=== PATIENT | male | born 1940 | race Caucasian/White ===

== ENCOUNTER 2016-05-29 07:39 | Outpatient (CLI) ==
--- NOTE | 2016-05-29 08:15 | DI ---
EXAM: Five views of the lumbar spine. History: Lower back pain and sciatica Comparison: Lumbar spine CT 07/28/2015 Findings: Osteopenia. Atherosclerotic vascular calcifications. No acute fracture. Minimal retrol isthesis of L3 and L4 is most likely degenerative in nature. Severe disc space narrowing at L5, S1 with endplate sclerosis. Moderate disc space narrowing at L3-L4 with a few prominent anterior osteo phytes. Mild to moderate disc space narrowing seen elsewhere. Moderate to severe facet hypertrophy at L5-S1. Surgical clips seen within the abdomen. Impression: No acute osseous abnormality of the lumbar spine. Degenerative changes and most signif icant at L5-S1.
--- NOTE | 2016-05-29 13:54 | NM ---
EXAM: Whole-body bone scan. HISTORY: Renal cancer. Sciatica. Post left nephrectomy 11 years ago. COMPARISON: 10/01/2013. PROCEDURE: The patient was injected with 27.1 mCi of 99m technetium HDP intravenously. After an mamadou ropriate interval, whole-body anterior and posterior images were obtained. Additional spot images w ere obtained. FINDINGS: The thoracic and lumbar spine are stable in appearance when compared to the prior exam. T he ribcage is normal in appearance. The pelvic skeleton is normal in appearance. The patient is po st left nephrectomy. The right kidney and bladder appear normal. The lower extremeties demonstrate generally stable findings. There is evidence of a left total knee prosthesis. There is evidence o f degenerative changes in the right knee. There is less activity in the patella than was seen on th e prior examination. There is symmetric increased activity in the ankles and feet somewhat greater a long the lateral aspect of the right ankle and foot. The upper extremeties demonstrate age appropria te levels of activity in the major joints. There is relatively symmetric increased activity in the A C joints and shoulders. There is asymmetric increased activity in the right sternoclavicular joint compared to the left. There is modest activity in the sternal angle of Mickey. There is increased ac tivity in the wrists particularly in the first metacarpal carpal articulations compatible with arthr itis. There is a focus of increased activity in the upper cervical spine on the left. This may be evidence of degenerative change or less likely metastatic disease. The calvarium and face demonstra te a normal distribution of activity. IMPRESSION: 1. The bone scan demonstrates generally stable findings in the thoracic and lumbar spine, rib cage a nd pelvis. 2. There are generally stable degenerative changes in the joints in the upper lower extremities. The se are listed in the report. 3. No new lesion is identified in the skeleton having the appearance of metastatic disease. 4. Additional findings are listed in the report.
== END 2016-05-29 07:40 | disposition home or self-care (01) ==
LOC: RAD 07:39
PROVIDERS: ATTEND Family Medicine
DX: M54.5 Low back pain (principal); M89.29 Other disorders of bone development and growth, multiple sites; Z85.528 Personal history of other malignant neoplasm of kidney

== ENCOUNTER 2016-11-02 10:42 | Emergency (ER) ==
--- NOTE | 2016-11-02 10:47 | ED.PDOC ---
General ED Provider: Dr. KENY SWANSON JR Stated Complaint: patient called a friend around 0900 and stated his mouth was dry and was having trouble getting words out. patient states he knows what he wants to say but it won't come out. patient denies any pain anywhere. patient is clammy.[ End ]99.4 101 16 93% 139/78 states began about 4 or 5 in the morning. right kidney removed from cancer. bladder cancer. [ End ] Time Seen by Physician: 11:08 Mode of Arrival: Walk-In Information Source: Patient, Other Exam Limitations: No limitations Primary Care Provider: GABBY ORR Nursing and Triage Documentation Reviewed and Agree: No Review of Systems - Review Of Systems Constitutional: Reports: Weakness Eyes: Reports: No symptoms Ears, Nose, Mouth, Throat: Reports: No symptoms (throat dry) Respiratory: Reports: No symptoms Cardiac: Reports: No symptoms GI: Reports: No symptoms : Reports: No symptoms Musculoskeletal: Reports: No symptoms Skin: Reports: No symptoms Neurological: Reports: Other Endocrine: Reports: No symptoms Hematologic/Lymphatic: Reports: No symptoms All Other Systems: Other Past Medical History - Past Medical History Endocrine: Reports: Dyslipidemia, Other (gout) Cardiovascular: Reports: Hypertension Respiratory: Reports: None Hematological: Reports: None Gastrointestinal: Reports: GERD Genitourinary: Reports: Other (prostate) Neuro/Psych: Reports: None Musculoskeletal: Reports: None Cancer: Reports: Other (bladder) - Surgical History General Surgical History: Reports: Other (right kidney removed from cancer) - Family History Family History: Reports: Unknown - Social History Hx Substance Use: No Physical Exam - Physical Exam Appearance: Well-appearing, Obese Eyes: OMAYRA, EOMI, Conjunctiva clear ENT: Ears normal, Nose normal, Oropharynx normal Neck: Supple Respiratory: Airway patent, Breath sounds clear, Breath sounds equal, Respirations nonlabored Cardiovascular: RRR, Pulses normal, No rub, No murmur GI/: Soft, Nontender, No masses, Bowel sounds normal, No Organomegaly Musculoskeletal: Normal strength, ROM intact, No edema, No calf tenderness Skin: Warm, Dry, Normal color Neurological: Sensation intact, Motor intact, Alert, Oriented (x2), Disoriented (to date) Psychiatric: Affect appropriate, Mood appropriate Critical Care Note - Critical Care Note Total Time (mins): 20 Course - Course Hematology/Chemistry: 11/02/16 11:15 11/02/16 11:15 Orders, Labs, Meds: Lab Review 11/02/16 11:15 WBC 9.21 RBC 4.22 L Hgb 13.3 L Hct 38.1 L MCV 90.3 MCH 31.5 H MCHC 34.9 RDW Coeff of Ysabel 13.3 Plt Count 143 Immature Gran % (Auto) 0.3 Neut % (Auto) 71.1 Lymph % (Auto) 17.8 Amelia % (Auto) 8.3 Eos % (Auto) 2.0 Baso % (Auto) 0.5 Immature Gran # (Auto) 0.0 Neut # 6.6 Lymph # 1.6 Amelia # 0.8 Eos # 0.2 Baso # 0.1 Sodium 140 Potassium 3.6 Chloride 104 Carbon Dioxide 24 Anion Gap 15.6 BUN 26 H Creatinine 1.57 H Estimated GFR (MDRD) 43.00 BUN/Creatinine Ratio 16.56 Glucose 155 H Calcium 10.0 Total Bilirubin 0.58 AST 22 ALT 30 Alkaline Phosphatase 103 Total Protein 6.8 Albumin 3.8 Globulin 3.0 Albumin/Globulin Ratio 1.27 Orders Category Date Time Status EKG-(ED ONLY) Stat CARDIO 11/02/16 11:01 Completed ED HUMAN RESOURCES OPERATIONS COORDINATOR APPLIED .ONCE EMERGENCY 11/02/16 11:01 Active IV [ED IV/MEDIPORT/POWERPORT] .ONCE EMERGENCY 11/02/16 10:55 Active CBC W/ AUTO DIFF Stat LAB 11/02/16 11:15 Completed COMPREHENSIVE METABOLIC PANEL Stat LAB 11/02/16 11:15 Completed 0.9 % Sodium Chloride [Saline Flush] MEDS 11/02/16 10:55 Active 1 syr IVF PRN PRN CHEST, 1V AP ONLY Stat RADS 11/02/16 11:[address] HEAD W/O CONTRAST Stat RADS 11/02/16 10:47 Completed Medications Generic Name Dose Route Start Last Admin Trade Name Freq PRN Reason Stop Dose Admin Sodium Chloride 1 syr 11/02/16 10:55 Saline Flush IVF PRN PRN To flush IV Vital Signs: Temp Pulse Resp BP Pulse Ox 11/02/16 10:44 99.4 F 101 H 16 139/78 93 L Departure - Departure Time of Disposition: 13:33 Disposition: TSF SHORT-TRM HOSP Discharge Problem: Cerebrovascular accident (CVA) Qualifiers: CVA mechanism: unspecified Qualifier Code: (I63.9) Cerebral infarction, unspecified Condition: Good Pt referred to PMD for follow-up: Yes Allergies/Adverse Reactions: Allergies No Known Allergies Allergy (Unverified 08/28/14 09:42) Home Medications: Ambulatory Orders Atorvastatin Calcium [Lipitor] 1 PO DAILY 09/01/14 Bumetanide 1 PO DAILY 09/01/14 Esomeprazole Magnesium [Nexium] 1 PO DAILY 09/01/14 Febuxostat [Uloric] 1 PO DAILY 09/01/14 Fluticasone Propionate [Flonase] 1 IH DAILY PRN 09/01/14 Hydrochlorothiazide 1 PO DAILY 09/01/14 Solifenacin Succinate [Vesicare] 1 PO DAILY 09/01/14 Tamsulosin HCl [Flomax] 1 PO DAILY 09/01/14
[2016-11-02 10:50] VITALS: TEMP 99.4; BMI 43.0
[2016-11-02 11:28] LABS: BASOPHILS # (AUTO) 0.1 K/uL (0-0.2); BASOPHILS % (AUTO) 0.5 % (0.0-3.0); EOSINOPHILS # (AUTO) 0.2 K/ul (0.0-0.7); HEMATOCRIT 38.1 % (42.0-52.0); HEMOGLOBIN 13.3 g/dl (14.0-18.0); IMMATURE GRANULOCYTE % (AUTO) 0.3 % (0.0-5.0); LYMPHOCYTES # (AUTO) 1.6 K/uL (0.60-3.4); LYMPHOCYTES % (AUTO) 17.8 (10.0-50.0); MEAN CORPUSCULAR HEMOGLOBIN 31.5 pg (27.0-31.0); MEAN CORPUSCULAR HGB CONC 34.9 (31.8-35.4); MEAN CORPUSCULAR VOLUME 90.3 fl (80.0-94.0); MONOCYTES # (AUTO) 0.8 K/uL (0.4-2.0); MONOCYTES % (AUTO) 8.3 (0-10); NEUTROPHILS # (AUTO) 6.6 K/ul (2.0-6.9); NEUTROPHILS % (AUTO) 71.1; PLATELET COUNT 143 10^3/uL (140-440); RED BLOOD COUNT 4.22 10^6/ul (4.70-6.10); WHITE BLOOD COUNT 9.21 K/ul (4.2-10.2)
[2016-11-02 11:51] LABS: ALBUMIN 3.8 g/dL (3.4-5.0); ALBUMIN/GLOBULIN RATIO 1.27; ANION GAP 15.6; BILIRUBIN,TOTAL 0.58 mg/dL (0.00-1.20); BUN/CREATININE RATIO 16.56; CREATININE 1.57 mg/dL (0.60-1.10); POTASSIUM 3.6 mmol/L (3.5-5.1); TOTAL PROTEIN 6.8 g/dL (5.8-8.1)
--- NOTE | 2016-11-02 11:59 | DI ---
EXAM: Chest one view, frontal view only. HISTORY: Chest pain. COMPARISON: None available. FINDINGS: The heart size is normal. There is no pulmonary vascular congestion. The lungs are maisha r. No pleural effusion or pneumothorax is seen. No acute osseous abnormality is identified. Clips project over the neck. Rounded radiopaque object projecting over the superior mediastinum is of un certain significance. IMPRESSION: No acute cardiopulmonary process.
--- NOTE | 2016-11-02 12:16 | CT ---
EXAM: CT head without contrast. HISTORY: Stroke-like symptoms. Aphasia. COMPARISON: 08/19/2015. TECHNIQUE: Multiple axial images of the brain were obtained from the skull base through the vertex without intravenous contrast. FINDINGS: There is no intracranial hemorrhage or extraaxial collection. The reyez-white differentia tion is maintained without evidence for acute large vascular territory infarction. There are areas of periventricular and subcortical white matter low attenuation. The cortical sulci and cerebral ve ntricles are symmetrically enlarged. The basal cisterns are well visualized. There is no hydroceph alus, mass effect, or midline shift. The paranasal sinuses and mastoid air cells are clear. The ca lvarium is intact. Since the prior study, there has been no significant interval change. IMPRESSION: 1. No acute intracranial abnormality. 2. Chronic small vessel ischemic changes and atrophy.
[2016-11-02 16:37] VITALS: BP 120/88
== END 2016-11-02 16:45 | disposition short-term general hospital (02) ==
LOC: ED 10:42
DX: I63.9 Cerebral infarction, unspecified (principal); E78.5 Hyperlipidemia, unspecified; I10 Essential (primary) hypertension; Z79.899 Other long term (current) drug therapy
CPT/HCPCS: 36415; 80053; 85025; 93005; 93010; 99283

== ENCOUNTER 2017-03-20 06:56 | Day surgery (SDC) ==
[2017-03-20] MEDS ORDERED: LIDOCAINE 1% 20 ML MDV ID STA (07:37)
[2017-03-20] MEDS ORDERED: VERSED ONE (08:38)
[2017-03-20] MEDS ORDERED: DIPRIVAN 20 ML VIAL IVP ONE (08:38)
[2017-03-20 10:40] VITALS: TEMP 97.6
[2017-03-20 13:18] VITALS: BP 150/78
--- NOTE | 2017-03-21 08:47 | OP ---
INDICATIONS FOR PROCEDURE: 76 year old gentleman with a history of multiple adenomatous polyps presents for colonoscopy examination. MEDICATIONS: SEE ANESTHESIA NOTES. PROCEDURE: COLONOSCOPY TO THE SIGMOID THEN ABORTING. REPORT: The risks, benefits, alternatives and limitations were discussed in detail with the patient. Informed consent was obtained. After adequate sedation was achieved, a digital rectal exam revealed good tone, no masses. The colonoscope was introduced into the rectum unfortunately there was liquid and semi-solid stool present. I advanced the scope under direct visual guidance I was able to reach the sigmoid but I encountered more stool that was obscuring adequate visualization. The patient did tell me prior to procedure that he only drank part of the prep. It was apparent the prep was not adequate at this point. We therefore decided to abort the procedure due to the inadequate prep. The scope was withdrawn. I did see multiple diverticuli scattered throughout the sigmoid no other abnormalities were noted in this limited view. The patient tolerated the procedure well with stable vital signs and pulse oximetry throughout. IMPRESSION: 1. Limited colonoscopy secondary to poor prep. The scope was advanced to the sigmoid then the procedure aborted. 2. Diverticulosis RECOMMENDATIONS: 1. Reschedule colonoscopy with additional prep. We will plan for this tomorrow if the patient is willing. CC: Dr. Deion SUN
== END 2017-03-20 09:48 | disposition home or self-care (01) ==
LOC: SURG 06:56
PROVIDERS: ATTEND Internal Medicine Gastroenterology
DX: Z53.8 Procedure and treatment not carried out for other reasons (principal); Z86.010 Personal history of colon polyps; K57.30 Diverticulosis of large intestine without perforation or abscess without bleeding

== ENCOUNTER 2017-06-16 00:14 | Emergency (ER) ==
[2017-06-16 01:08] VITALS: BMI 41.4
--- NOTE | 2017-06-16 01:26 | CT ---
EXAM: CT scan brain without contrast HISTORY: Fall COMPARISON: CT scan brain 11/02/2016 FINDINGS: Contiguous axial images obtained from the skull base to the convexities without contrast u tilizing 5-mm collimation. Sagittal and coronal reconstructions were imaged and reviewed. The ventr icles and CSF spaces are prominent compatible with age appropriate atrophy. There is moderate perive ntricular hypodensity noted compatible with chronic microvascular disease.. Visualized paranasal sin uses mastoid air cells are clear. Atherosclerotic changes are seen involving internal carotids at th e level cavernous sinus. The calvarium is intact. IMPRESSION: No acute intracranial finding
--- NOTE | 2017-06-16 01:31 | CT ---
EXAM: CT scan cervical spine HISTORY: Fall COMPARISON: None. FINDINGS: Contiguous axial images obtained through the cervical spine utilizing 2-mm collimation. S agittal and coronal reconstructions were imaged and reviewed.. The vertebral bodies are normal in he ight and alignment. Degenerate disc disease is noted at C4-C5 through C6-C7. There is multilevel ce ntral canal and foraminal stenosis. IMPRESSION: No acute findings.
--- NOTE | 2017-06-16 01:32 | DI ---
EXAM: The left knee four views HISTORY: Trauma COMPARISON: None. FINDINGS: There is an intact appearing total knee prosthesis. There is no acute fracture or joint e ffusion. IMPRESSION: Satisfactory appearing total knee prosthesis without acute findings
--- NOTE | 2017-06-16 01:35 | CT ---
EXAM: CT of the pelvis without contrast. HISTORY: Fall. PROCEDURE: Contiguous axial CT images of the pelvis without contrast with coronal and sagittal refor mats. FINDINGS: The bones are intact with no evidence of fracture. The joint spaces are maintained. The bl adder is adequately filled with no abnormality identified. The seminal vesicles and prostate gland a re unremarkable. There is diverticulosis of the colon. No free fluid or free air in the pelvis. Impression: No evidence of fracture. Diverticulosis of the colon.
[2017-06-16] MEDS ORDERED: ZOFRAN ODT PO STA (02:08)
--- NOTE | 2017-06-16 03:29 | CT ---
EXAM: CT angiogram chest with intravenous contrast 06/16/2017. Multi planar reformatted images obtai edna. Three-dimensional reconstructed images provided HISTORY: Hypoxia. Elevated D-dimer COMPARISON: 11/02/2016 FINDINGS: Moderate cardiomegaly. No pericardial effusion. The thoracic aorta shows no acute abnorm ality. There are no pulmonary arterial filling defects to suggest pulmonary embolus. Anatomic detail partial ly degraded by motion artifact. Small arterial branches beyond the egmental level are not well evalu ated. Bilateral dependent atelectasis. There is no pulmonary consolidation, effusion or pneumothorax. No acute osseous abnormality. IMPRESSION: 1. No pulmonary embolus identified. Small peripheral arterial branches beyond segmental level are n ot well evaluated due to motion artifact. 2. Cardiomegaly. 3. Atelectasis.
--- NOTE | 2017-06-16 04:44 | ED.PDOC ---
General ED Provider: Dr. GABBY ORR-ER Chief Complaint: Fall Stated Complaint: found on the floor and confused Time Seen by Physician: 00:20 Mode of Arrival: Wheelchair Information Source: Patient, Family Exam Limitations: No limitations Primary Care Provider: GABBY ORR Nursing and Triage Documentation Reviewed and Agree: Yes Reviewed sepsis parameters & appropriate labs ordered?: Yes System Inflammatory Response Syndrome: Not Applicable Sepsis Protocol: For patient's 13 years and over: Temp is 96.8 and below OR 101 and greater Pulse >90 BPM Resp >20/minute Acutely Altered Mental Status Are patient's symptoms suggestive of a new infection, such as: -Pneumonia -Skin, Soft Tissue -Endocarditis -UTI -Bone, Joint Infection -Implantable Device -Acute Abdominal Infection -Wound Infection -Meningitis -Blood Stream Catheter Infection -Unknown Neurological Complaint Exam - Altered Mental Status Complaint/Exam Current Mental Status: Confusion Onset: Sudden Symptoms Are: Still present Timing: Constant Initial Severity: Mild Current Severity: Mild Eye Deviation Present: No Character: Reports: Confusion Aggravating: Reports: None Alleviating: Reports: None Associated Signs and Symptoms: Denies: Dizziness, Weakness, Headache, Fever, Illness, Nuchal rigidity, Seizure, Nausea, Vomiting, Recently depressed, Trauma Cardiac Risk Factors: Reports: Hypertension CVA Risk Factors: Reports: Diabetes Carotid Bruit Present: No Nystagmus Present: No Gag Reflex Present: Yes Meningeal Signs Positive: No Focal Weakness: Present: None Focal Sensory Loss: Present: None Gait: Normal Romberg Test Positive: No Babinski Sign: Negative Right, Negative Left Heel to Toe Normal: Yes Signs of Injury: Present: Normal findings Differential Diagnoses: TIA, CVA Review of Systems - Review Of Systems Constitutional: Reports: No symptoms Eyes: Reports: No symptoms Ears, Nose, Mouth, Throat: Reports: No symptoms Respiratory: Reports: No symptoms Cardiac: Reports: No symptoms GI: Reports: No symptoms : Reports: No symptoms Musculoskeletal: Reports: Back pain Skin: Reports: No symptoms Neurological: Reports: Cognitive dysfunction Endocrine: Reports: No symptoms Hematologic/Lymphatic: Reports: No symptoms All Other Systems: Reviewed and Negative Past Medical History - Past Medical History Previously Healthy: No Endocrine: Reports: Dyslipidemia, Other (gout) Cardiovascular: Reports: Hypertension Respiratory: Reports: None Hematological: Reports: None Gastrointestinal: Reports: GERD Genitourinary: Reports: Other (prostate) Neuro/Psych: Reports: None Musculoskeletal: Reports: None Cancer: Reports: Other (bladder) - Surgical History General Surgical History: Reports: Other (right kidney removed from cancer) - Family History Family History: Reports: Unknown - Social History Smoking Status: Never smoker Hx Substance Use: No Alcohol Screening: None - Immunizations Tetanus Shot up to Date: (UNKNOWN) Physical Exam - Physical Exam Appearance: Well-appearing Eyes: OMAYRA, EOMI, Conjunctiva clear ENT: Ears normal, Nose normal, Oropharynx normal Neck: Supple Respiratory: Airway patent, Breath sounds clear, Breath sounds equal, Respirations nonlabored Cardiovascular: RRR, Pulses normal, No rub, No murmur GI/: Soft, Nontender, No masses, Bowel sounds normal, No Organomegaly Musculoskeletal: Normal strength Skin: Warm, Dry, Normal color Neurological: Alert, Disoriented Psychiatric: Affect appropriate, Mood appropriate Interpretation - Radiology Interpretation Radiology Interpretation By: Radiologist Radiology Results: Negative Exam Interpreted: CT Scan - EKG Interpretation Time of EKG #1: 04:43 Rate: Normal Rhythm: Sinus Critical Care Note - Critical Care Note Total Time (mins): 30 Course - Course Hematology/Chemistry: 06/16/17 01:19 06/16/17 01:19 Orders, Labs, Meds: Lab Review 06/16/17 06/16/17 06/16/17 01:19 01:19 01:19 WBC 12.59 H RBC 4.66 L Hgb 14.8 Hct 42.0 MCV 90.1 MCH 31.8 H MCHC 35.2 RDW Coeff of Ysabel 13.6 Plt Count 171 Immature Gran % (Auto) 0.6 Neut % (Auto) 78.5 Lymph % (Auto) 13.3 [place] % (Auto) 7.0 Eos % (Auto) 0.2 Baso % (Auto) 0.4 Immature Gran # (Auto) 0.1 Neut # (Auto) 9.9 H Lymph # (Auto) 1.7 [place] # (Auto) 0.9 Eos # (Auto) 0.0 Baso # (Auto) 0.1 D-Dimer (Manual) 1513.63 Puncture Site O2 Saturation ABG pH ABG pCO2 ABG pO2 ABG HCO3 ABG Total CO2 ABG Base Excess Дмитрий Test FiO2 % Sodium 135 L Potassium 3.3 L Chloride 98 Carbon Dioxide 24 Anion Gap 16.3 BUN 17 Creatinine 1.28 H Estimated GFR (MDRD) 54.00 BUN/Creatinine Ratio 13.28 Glucose 145 H Calcium 10.3 H Total Bilirubin 1.0 AST 19 ALT 20 Alkaline Phosphatase 101 Total Creatine Kinase 282 CK-MB (CK-2) 4.4 H CK-MB (CK-2) % 1.57951 Total Protein 7.3 Albumin 3.7 Globulin 3.6 Albumin/Globulin Ratio 1.03 Urine Color Urine Clarity Urine pH Ur Specific [place] Urine Protein Urine Glucose (UA) Urine Ketones Urine Blood Urine Nitrite Urine Bilirubin Urine Urobilinogen Ur Leukocyte Esterase Urine Microscopic RBC Urine Microscopic WBC Ur Squamous Epith Cells Urine Bacteria Urine Mucus 06/16/17 06/16/17 02:55 04:00 WBC RBC Hgb Hct MCV MCH MCHC RDW Coeff of Ysabel Plt Count Immature Gran % (Auto) Neut % (Auto) Lymph % (Auto) [place] % (Auto) Eos % (Auto) Baso % (Auto) Immature Gran # (Auto) Neut # (Auto) Lymph # (Auto) [place] # (Auto) Eos # (Auto) Baso # (Auto) D-Dimer (Manual) Puncture Site Lr O2 Saturation 93.0 L ABG pH 7.450 ABG pCO2 39.6 ABG pO2 63.0 L ABG HCO3 27.5 H ABG Total CO2 29 H ABG Base Excess 4 H Дмитрий Test + FiO2 % 21.0 Sodium Potassium Chloride Carbon Dioxide Anion Gap BUN Creatinine Estimated GFR (MDRD) BUN/Creatinine Ratio Glucose Calcium Total Bilirubin AST ALT Alkaline Phosphatase Total Creatine Kinase CK-MB (CK-2) CK-MB (CK-2) % Total Protein Albumin Globulin Albumin/Globulin Ratio Urine Color Yellow Urine Clarity Clear Urine pH 7.0 Ur Specific [place] 1.015 Urine Protein 2+ Urine Glucose (UA) Negative Urine Ketones Negative Urine Blood Negative Urine Nitrite Negative Urine Bilirubin Negative Urine Urobilinogen 2.0 Ur Leukocyte Esterase Negative Urine Microscopic RBC 0-2 Urine Microscopic WBC 2-5 Ur Squamous Epith Cells 5-10 Urine Bacteria Trace Urine Mucus 1+ Orders Category Date Time Status ABG DRAW REQUEST Stat CARDIO 06/16/17 02:55 Completed EKG-(ED ONLY) Stat CARDIO 06/16/17 00:19 Completed NPO REMINDER: IMAGING ONCE CARE 06/16/17 02:09 Completed Bladder [ED BLADDER SCAN] .ONCE EMERGENCY 06/16/17 02:29 Active ED IV/MEDIPORT/POWERPORT .ONCE EMERGENCY 06/16/17 02:29 Active ARTERIAL BLOOD GAS [ABG] Stat LAB 06/16/17 02:55 Completed CBC W/ AUTO DIFF Stat LAB 06/16/17 01:19 Completed CK [CREATINE KINASE] Stat LAB 06/16/17 01:19 Completed COMPREHENSIVE METABOLIC PANEL Stat LAB 06/16/17 01:19 Completed D-DIMER Stat LAB 06/16/17 01:19 Completed URINALYSIS C & S IF INDICATED Stat LAB 06/16/17 04:00 Completed 0.9 % Sodium Chloride [Saline Flush] MEDS 06/16/17 02:29 Ordered 1 syr IVF PRN PRN Ondansetron [Zofran Odt] MEDS 06/16/17 02:08 Discontinued 4 mg PO ONCE STA CT CERVICAL SPINE W/O CONTRAST Stat RADS 06/16/17 00:[address] CHEST PE PROTOCOL Stat RADS 06/16/17 02:[address] HEAD W/O CONTRAST Stat RADS 06/16/17 00:[address] PELVIS W/O CONTRAST Stat RADS 06/16/17 00:19 Completed KNEE, LEFT 4 VIEWS Stat RADS 06/16/17 00:28 Completed Medications Generic Name Dose Route Start Last Admin Trade Name Freq PRN Reason Stop Dose Admin Sodium Chloride 1 syr 06/16/17 02:29 Saline Flush IVF PRN PRN To flush IV Discontinued Medications Generic Name Dose Route Start Last Admin Trade Name Freq PRN Reason Stop Dose Admin Ondansetron HCl 4 mg 06/16/17 02:08 06/16/17 02:16 Zofran Odt PO 06/16/17 02:09 4 mg ONCE STA Administration Vital Signs: Temp Pulse Resp BP Pulse Ox 06/16/17 00:15 98.6 F 94 H 24 145/90 H 91 L Departure - Departure Time of Disposition: 04:43 Disposition: TSF SHORT-TRM HOSP Discharge Problem: CVA (cerebral vascular accident) Qualifiers: CVA mechanism: other Qualified Code(s): I63.8 - Other cerebral infarction Instructions: Stroke (DC) Condition: Stable Pt referred to PMD for follow-up: Yes IPMP verified?: No Allergies/Adverse Reactions: Allergies No Known Allergies Allergy (Verified 06/16/17 00:46) Home Medications: Ambulatory Orders Atorvastatin Calcium [Lipitor] 80 mg PO BEDTIME 09/01/14 Febuxostat [Uloric] 40 mg PO DAILY 09/01/14 Fluticasone Propionate [Flonase] 2 spray TIARRA BID 09/01/14 Tamsulosin HCl [Flomax] 2 cap PO DAILY 09/01/14 Amlodipine/Valsartan/Hcthiazid [Gtoum-Uklpt-Yrfq 10-320-25 mg] 1 tab PO DAILY Calcitriol [Rocaltrol] 0.25 mcg PO MOWEFR 06/16/17 Clonidine HCl [Catapres] 0.1 mg PO BID 06/16/17 Clopidogrel Bisulfate [Plavix] 75 mg PO DAILY 06/16/17 Duloxetine HCl [Cymbalta] 60 mg PO DAILY 06/16/17 Ergocalciferol (Vitamin D2) [Vitamin D2] 50,000 unit PO DIRECTED 06/16/17 Finasteride [Proscar] 5 mg PO DAILY 06/16/17 Furosemide [Lasix Tab] 40 mg PO QDAC 06/16/17 Gabapentin [Neurontin] 300 mg PO DAILY 06/16/17 Linagliptin [Tradjenta] 5 mg PO DAILY 06/16/17 Lisinopril [Prinivil] 5 mg PO DAILY 06/16/17 Mirabegron [Myrbetriq] 50 mg PO DAILY 06/16/17 Mometasone Furoate [Asmanex] 220 mcg IH BID 06/16/17 [place]-3 Fatty Acids/Fish Oil [Fish Oil 1,000 mg Capsule] 1 each PO DAILY Transfer Form Completed: Yes Disposition Discussed With: Patient, Family
[2017-06-16 05:02] VITALS: BP 159/98; TEMP 99.1
== END 2017-06-16 05:30 | disposition short-term general hospital (02) ==
LOC: ED 00:14
DX: I63.9 Cerebral infarction, unspecified (principal); I10 Essential (primary) hypertension; E11.9 Type 2 diabetes mellitus without complications; Z79.899 Other long term (current) drug therapy; W19.XXXA Unspecified fall, initial encounter; R41.82 Altered mental status, unspecified
CPT/HCPCS: 36415; 80053; 81001; 82550; 82553; 82803; 85025; 85379; 93005; 93010; 99285

== ENCOUNTER 2018-04-25 13:54 | Outpatient (RCR) ==
--- NOTE | 2018-04-26 09:13 | RS.OPPTEV2 ---
Date of Note: 04/25/18 Visit #: 1 Number of visits approved by Insurance: NA Date of Evaluation: 04/25/18 Payer Source: MEDICARE Surgery Performed?: No Treatment Diagnosis: Low back pain, gait abnormality History of Condition/Mechanism of Injury:: Patient states he has had lower back pain for a number of years His owqeuuqv-yn-snb is with him and states Mr. Cortez has had two CVA's, and Pain Management will no longer perform his injections since he is on a blood thinner. He has not had injections for his low back in over a year. His back pain has progressively gotten worse. He has also progressivley had more difficulty with walking. Prior Level of Function.....Patient was independent with: ADL's, Self Care, Ambulation/Mobility, Community Integration/Access Level of Function: Pain with all mobility which limits his ability to ambulate or perform normal daily function. Functional Limitations: Reaching, Lifting, Carrying, Standing, Squatting, Ambulation Current Subjective/complaints:: Mr. Cortez reports low back pain with prolonged standing and walking. States he is fine when sitting, but he has pain with getting up and down. His myebpgil-nd-zbq states he has fallen 3-4 times in the last month. States he fell today, on the way to therapy. Reports weakness in his legs. He denies tingling or numbness in the LE's. He also denies pain into the LE's. He has recently moved into [facility]. Mr. Cortez demonstrates a processing delay when responding to questions. His yqrhzvhm-kr-dxd was a better source of information. 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 Left kidney was removed. Surgical History Comments:: Left TKA Smoking Status: Never smoker Diagnostic Testing/Imaging:: lumbar Xray on 05/2016. Findings:Minimal retrolisthesis of L3 and L4, Severe disc space narrowing at L5, S1 with endplate sclerosis. Moderate disc space narrowing at L3-L4 with a few prominent anterior osteophytes. Moderate to severe facet hypertrophy at L5-S1. Hx Home Medications: Lozaar, Furosemide, Flomax, Amlodipine, Gabapentin, protonix, Eliquis, Myrbetriq Patient's Goals: His goal is to get some releif of low back pain. Pain Assessment - Pain Description Pain Location: low back at waist line Current Pain Intensity: 5/10 Worst Pain Intensity: 10/10 Functional Outcome Measure Oswestry LBP: 46 Tinetti: 17 - G Codes & Severity Modifier G Codes & Modifier: NA Source of G Code score: Na Observation - Observation Posture: Forward Head, Rounded Shoulders Comments: Demonstrates left shoulder higher than right, level pelvis. Gait - Gait Pattern Gait Comments: Patient ambulates with a rollator with SBA. He demonstrates minimal foot clearance bilaterally, due to decreased hip and knee flexion during swing phase. He demonstrates a wide base of support and short step length. - ROM Comments: Lumbar flexion and extension does not cause increased pain. Lumbar rotation is limited bilaterally, approximately 50-75%. SLR on the right to 40 degrees, Left SLR to 45 degrees. LE AROM is WFL's. No pain with knee to chest. - Strength Trunk Lateral Flexion: 4- Good- Trunk Rotation: 4- Good- Comments: Bilateral hip strength 4/5, quads and HS 4 to 4+/5, ankles 5/5. - Special Tests SLR Test: Negative Left, Negative Right Seated Dural Stretch Test: Negative Left, Negative Right Palpation Comments:: Mr. Cortez reports no tenderness with palpation to the lumbar paraspinals or througout the lumbar spine. Sensation - Sensation Right Lower Extremity: Intact/Normal Left Lower Extremity: Intact/Normal Additional Comments: Additional Comments: Sit to stand from chair or treatment table requires use of his UE's and more than one attempt. Interventions - Exercise/Activities/Manual Therapy Exercises/Activities: Discussed safety with transfers and to concentrate on picking up his feet when ambulating. Manual Therapy: NA - Charges Timed Code Treatment Minutes: 0 Total Treatment Time: 50 mins Procedures billed for this date of service:: EVAL HIgh EVALUATION COMPLEXITY LEVEL EVALUATION COMPLEXITY LEVEL: HISTORY: High (Chronic LBP, HX falls, HX CVA, Obesity, Diabetes, HTN), EXAM OF BODY SYSTEMS: High (pain, MS, ROM, gait, sensation), CLINICAL PRESENTATION: High, CLINICAL DECISION MAKING: High Assessment Assessment: Mr. 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 He presents with reports of chronic low back pain. He has progressively gotten less mobile and had more difficulty with ambulation due to LE weakness with ambulation. He has fallen several times in the last month and presents to be a high risk for falls per Tinetti Assessment. He exhibits tight hamstrings and limited trunk mobility. He will benefit from exercises to adress limited mobility, increased hip and trunk strenght, and training to improve safety and independence with transfers and ambulation. Patient Education: Education of diagnosis, Body/Joint mechanics, Home Safety, Activity Modification, Education of Plan of Care Rehab Potential: Good Short Term Goals Goal #1: Bilateral SLR to 50 degrees. Goal to be met by: 05/09/18 Goal #2: Patient able to ambulate in depart. with rolllator & good foot clearance. Goal to be met by: 05/09/18 Goal #3: Pt to understand technique to get out of floor after a fall. Goal to be met by: 05/09/18 Goal #4: Bilateral hip strength 4+/5. Goal to be met by: 05/09/18 Detention Goals Goal #1: Pt knows HEP and to continue ex's to maintain functional level at D/C. Goal to be met by: 06/09/18 Goal #2: Score on Oswesty LBP scale improved to 66. Goal to be met by: 06/09/18 Goal #3: Pt able to stand to tolerate ADL's /functional activities with minimal pain Goal to be met by: 06/09/18 Goal #4: Pt able to walk community distances with minimal low back pain. Goal to be met by: 06/09/18 Plan - Treatment to be Provided Procedures: Therapeutic Exercises, Therapeutic Activity, Gait Training, Neuromuscular Rehab, Manual Therapy, Patient Education Modalities: Electrical Stimulation, Ultrasound/Phonophoresis, Class IV Laser, Cryotherapy, Hot Packs - Treatment Plan Frequency: 2-3 X week Duration: 4 weeks Dates of [employer] Goals: 06/09/18 Expiration date of current Insurance Approval:: NA - Treatment Code (1) Low back pain Code(s): M54.5 - LOW BACK PAIN Qualifiers: Chronicity: chronic Back pain laterality: bilateral Sciatica presence: without sciatica Qualified Code(s): M54.5 - Low back pain; G89.29 - Other chronic pain (2) Gait abnormality Code(s): R26.9 - UNSPECIFIED ABNORMALITIES OF GAIT AND MOBILITY Comments: R26.9 (3) History of recent fall Code(s): Z91.81 - HISTORY OF FALLING Comments: Z91.81 (4) Spondylosis of lumbar region without myelopathy or radiculopathy Code(s): M47.816 - SPONDYLOSIS W/O MYELOPATHY OR RADICULOPATHY, LUMBAR REGION Comments: M47.816
--- NOTE | 2018-05-10 09:53 | RS.QUICKDC ---
Discharge from PT Date of Discharge: 05/10/18 Number of Visits: 1 Reason for Discharge: Mr. Cortez requires assistance with all ambulation to avoid falls. He was going to be dependent on a transportation bus to get to and from therapy, but no one would be available to assist him when walking to and from the bus. Because of him being at a high risk for falls, I recommended he have home health therapy to increase his ability and safety with ambulation. Mr. Cortez is discharged at this time, without meeting any goals.
== END 2018-05-02 23:59 ==
PROVIDERS: ATTEND Nurse Practitioner Gerontology
DX: M47.816 Spondylosis without myelopathy or radiculopathy, lumbar region (principal)

== ENCOUNTER 2018-05-16 09:23 | Inpatient (IN) ==
[2018-05-16 09:58] VITALS: BMI 40.1
[2018-05-16] MEDS: SODIUM CHLORIDE 1,000 ML IV SCH ×2 (10:14→21:17)
[2018-05-16] MEDS ORDERED: FLONASE NAS PRN (10:51)
--- NOTE | 2018-05-16 13:27 | CT ---
EXAM: CT ABDOMEN AND PELVIS HISTORY: Persistent diarrhea, abdominal pain TECHNIQUE: CT abdomen and pelvis without intravenous contrast. Images were reconstructed using 5 mm section thickness. Reformations were prepared. FINDINGS: Diagnostic limitations may exist without including contrast enhanced images. No focal hepatic or spl enic lesions are identified. A few tiny gallstones are present in an otherwise unremarkable gallblad benny. Pancreas is within normal limits. No adrenal mass. The right kidney has several cortical mass es one inferiorly at 2.7 cm and one superiorly at 2 cm. Smaller cortical masses are also suggested a lthough not well defined. A few punctate calcifications are seen within the right kidney which in pa rt may be vascular in nature. The right ureter is clear. No left kidney is seen. Mild to moderate atherosclerotic disease is present. The stomach is mildly distended with fluid and air. Normal appendix. Moderate distal colon divertic ulosis. Bowel gas pattern is nonobstructive. There is no ascites. No ventral hernia. The bones reveal moderate degenerative changes of the lower spine and osteoarthri tis of the hips. Lung bases are free of acute infiltrate. No pneumoperitoneum. IMPRESSION: 1. Mild fluid distension of the stomach could represent gastroparesis, ileus or gastritis. Bowel ga s pattern is nonobstructive. There is moderate distal colon diverticulosis. 2. A few tiny gallstones are present in an otherwise unremarkable gallbladder. 3. Small right renal cortical masses which may represent cysts although indeterminate on the current study and some are not clearly delineated. Optimal imaging would include urogram protocol CT or xavier al protocol MRI. Initial further imaging could include dedicated renal ultrasound. No left kidney i s seen. 4. Atherosclerosis.
[2018-05-16] MEDS ORDERED: NON-FORMULARY MEDICATION (Gabapentin [Neurontin] 600 MG) PO SCH (21:00)
[2018-05-16] MEDS: NEURONTIN PO SCH (21:11)
[2018-05-16] MEDS: LIPITOR PO SCH (21:11)
[2018-05-16] MEDS: ELIQUIS PO SCH (21:12)
[2018-05-16] MEDS: PROTONIX PO SCH (21:12)
[2018-05-16] MEDS: CATAPRES PO SCH (21:12)
[2018-05-16] MEDS: MOMETASONE FUROATE 220 MCG IH SCH (21:13)
[2018-05-17] MEDS ORDERED: NON-FORMULARY MEDICATION (Duloxetine Hcl [Cymbalta] 60 MG) PO SCH (09:00)
[2018-05-17] MEDS ORDERED: NON-FORMULARY MEDICATION (Mirabegron [Myrbetriq] 50 MG) PO SCH (09:00)
[2018-05-17] MEDS ORDERED: NON-FORMULARY MEDICATION (Amlodipine Besylate [Norvasc] 10 MG) PO SCH (09:00)
[2018-05-17] MEDS: MYRBETRIQ PO SCH (09:19)
[2018-05-17] MEDS: PROSCAR PO SCH (09:20)
[2018-05-17] MEDS: ELIQUIS PO SCH ×2 (09:20→21:02)
[2018-05-17] MEDS: NORVASC PO SCH (09:20)
[2018-05-17] MEDS: COZAAR PO SCH (09:20)
[2018-05-17] MEDS: FLOMAX PO SCH (09:20)
[2018-05-17] MEDS: ULORIC PO SCH (09:21)
[2018-05-17] MEDS: TRADJENTA PO SCH (09:21)
[2018-05-17] MEDS: CYMBALTA PO SCH (09:21)
[2018-05-17] MEDS: MOMETASONE FUROATE 220 MCG IH SCH ×2 (09:21→21:00)
[2018-05-17] MEDS: NEURONTIN PO SCH ×2 (09:21→21:03)
[2018-05-17] MEDS: CATAPRES PO SCH ×2 (09:21→21:02)
[2018-05-17] MEDS: CALCITRIOL 0.5 MCG PO SCH (09:22)
[2018-05-17] MEDS: SODIUM CHLORIDE 1,000 ML IV SCH (12:25)
--- NOTE | 2018-05-17 13:56 | RS.PTINEVL ---
Subjective - Patient information Date of Evaluation: 05/17/18 Date of Arrival on Unit: 05/16/18 Admitted From:: Home (lives at [facility]) Diagnosis: persistent diarrhea, Usual Living Arrangement: [facility] Home Environment: Level/No stairs Medical History: Hypertension, CVA/TIA (x 2), COPD, Cancer (kidney) Medical History Comments:: BPH, afib LATEX ALLERGY?: No Surgical History: Knee Replacement (left) Medications: see chart Subjective Information/ Patient Comments:: pt states that he is doing better. Reports no diarrhea since entering hospital. - Level of function Prior to this admission, the patient could do the following:: Independent ADL's , Independent Ambulation Abilities prior to this admission: pt had some assist from family, however amb independently to dining room. Current Equipment Used at Home: CPAP, rollator Interventions - Objective Patient Orientation: Person, Place Current Interventions: IV's, Telemetry Observation: pt with pitting edema BLE Range of Motion - ROM Right Upper Extremity AROM: WFL's Left Upper Extremity AROM: WFL's Right Lower Extremity AROM: WFL's Left Lower Extremity AROM: WFL's Muscle Strength - Muscle Strength Right Upper Extremity Strength: Mild Weakness (grossly 4/5) Left Upper Extremity Strength: Mild Weakness (grossly 4/5) Right Lower Extremity Strength: Mild Weakness (hip flex 4-/5, knee flex/ext 4/5 , ankle DF/PF 4/5) Left Lower Extremity Strength: Mild Weakness (hip flex 4-/5, knee flex/ext 4/5, ankle DF/PF 4/5) Sensation - Sensation Right Upper Extremity Sensation: Intact/Normal Left Upper Extremity Sensation: Intact/Normal Right Lower Extremity Sensation: Intact/Normal Left Lower Extremity Sensation: Intact/Normal Palpation Palpation Findings: None/Normal Balance - Sitting Balance and Reactions Static Sitting Balance: Good Dynamic Sitting Balance: Fair Sitting Equilibrium Reactions: Delayed Left, Delayed Right Sitting Protective Reactions: Delayed Left, Delayed Right - Standing Balance and Reactions Static Standing Balance: Poor Dynamic Standing Balance: Poor Standing Equilibrium Reactions: Delayed Left, Delayed Right Standing Protective Reactions: Delayed Left, Delayed Right - Comments Balance Assessment Comments: pt with increased lat sway with amb. Functional Mobility - Bed Mobility Rolling R/L: CGA Scooting: CGA, 1 person assist Sit to Supine: Min Assist - Transfers Sit to Stand: CGA, Min Assist Stand to Sit: CGA - Safety Awareness Safety Awareness: Poor JODY INDEX SCORE: n/a Ambulation - Ambulation Assistive Device Used: Rolling Walker Orthotic/Prosthetic Device: No Distance: 110ft Assistance needed with Ambulation: CGA, 1 person assist, 2 person assist Gait Deviations: Wide Based gait, Forward posture, Short stride, Deviates from path Ambulation Comments: pt requires verbal cues to keep walker close when amb. pt amb with increased lat sway. Factors Affecting Ambulation: Decreased Balance, Weakness, Decreased Safety, Cognitive Status, Limited Endurance Treatment time - Time with patient Length of Evaluation: 21 Total treatment time: 24 Patient Education - Education Patient Education: Activity Modification, Education of Plan of Care Teaching Recipient: Patient Teaching Methods: Discussion Comments: discussion regarding POC as well as safety to reach back for chair prior to sitting. Assessment - Assessment Problem List:: Decreased level of function, Requires training/education, Decreased safety/Risk of falls, Weakness, Cognitive status limits abilities Rehab Potential: Good Further Therapy Indicated?: Yes Evaluation Complexity: HISTORY: Medium (CVA, COPD, HTN, afib, falls), EXAM OF BODY SYSTEMS: Medium (strength, balance, transfers, gait), CLINICAL PRESENTATION : Medium, CLINICAL DECISION MAKING: Medium Short Term Goals GOAL #1: pt demonstrate independence with rolling and scooting up in bed Goal to be met by: 05/20/18 GOAL #2: Transfer sup to/from sit CGA Goal to be met by: 05/20/18 GOAL #3: Transfer sit to/from stand SBA Goal to be met by: 05/20/18 GOAL #4: pt amb with rwx 100ft with SBA to CGA with improved sequencing Goal to be met by: 05/20/18 [facility] Goals GOAL #1: pt amb functional distances with rwx with SBA no LOB Goal to be met by: 05/22/18 GOAL #2: pt with improved dyn stand balance fair Goal to be met by: 05/22/18 GOAL #3: Improved BLE strength 4 to 4+/5 Goal to be met by: 05/22/18 Plan Plan of Care: Therapeutic EX, Therapeutic Activity Other:: gait training Frequency of Treatment: 1-2 X day, as tolerated Duration of Treatment: 5 days Anticipated Discharge Destination: [facility] (possible) Treatment Diagnosis (ICD 10 Codes): R 26.2 difficulty walking. R 26.81 balance impaired. M62.81 muscle weakness Has the Physician been added for Co-signature?: Yes
--- NOTE | 2018-05-17 14:26 | RS.OTINEVL ---
Subjective - Patient information Date of Evaluation: 05/17/18 Date of Arrival on Unit: 05/16/18 Admitted From:: Home (lives at [facility]) Usual Living Arrangement: [facility] Living Arrangement Comments: Pt lives in an apartment at [facility]. Home Environment: Level/No stairs Medical History: Hypertension, CVA/TIA (x 2), COPD, Cancer (kidney) Medical History Comments:: BPH, afib LATEX ALLERGY?: No Surgical History: Knee Replacement (left) Surgical History Comments:: Left TKA, Parathyroid, Kidney Cancer, cataracts removed, cystocopy Medications: see chart Subjective Information/ Patient Comments:: "I do it myself." - Level of function Prior to this admission, the patient could do the following:: Independent ADL's , Independent Ambulation Abilities prior to this admission: Pt reports he walks with a rollator walker. Pt reports he takes a shower himself. Pt reports he dresses himself at [facility]. Current Level of Function: Partially Dependent Current Equipment Used at Home: CPAP, rollator Pain Assessment - Pain Pain Score: 0 Interventions - Objective Patient Orientation: Person Current Interventions: IV's, Telemetry Observation: Pt has a delay in processing, impaired hearing, wears hearing aids , has impaired gait, and requires a rolling walker to ambulate. Interventions - ROM Right Upper Extremity AROM: WFL's Left Upper Extremity AROM: WFL's - Strength Right Upper Extremity Strength: Mild Weakness Left Upper Extremity Strength: Mild Weakness - Sensation Right Upper Extremity Sensation: Intact/Normal Left Upper Extremity Sensation: Intact/Normal Balance - Sitting Balance Static Sitting Balance: Fair Dynamic Sitting Balance: Fair - Standing Balance Static Standing Balance: Poor Dynamic Standing Balance: Poor ADL Skills - Self Feeding Self Feeding: CGA - Grooming Grooming: CGA - Bathing Bathing UE: Set Up Only Bathing LE: Min Assist - Dressing Dressing UE: Set Up Only Dressing LE: Min Assist - Toilet Management Toileting Management: CGA Functional Mobility - Bed Mobility Rolling R/L: CGA Scooting: CGA Supine to Sit: CGA Sit to Supine: CGA - Transfers Sit to Stand: Min Assist Stand to Sit: Min Assist Stand Pivot Transfers: Min Assist - Ambulation Weight Bearing Status: FWB Assistive Device Used: Rolling Walker Assistance needed with Ambulation: Min Assist - Safety Awareness Safety Awareness: Fair JODY INDEX SCORE: . Additional Treatment Performed - Time with patient Length of Evaluation: 21 Total treatment time: 21 Activities Would you be interested in leaving your room for activities?: Yes Do you have difficulty with your vision?: Yes Patient Interests:: Watching Television, Visiting/Socializing Patient Education Patient Education: Education of diagnosis, Education of Plan of Care Teaching Recipient: Patient Teaching Methods: Discussion Assessment Problem List:: Decreased level of function, Requires training/education, Decreased safety/Risk of falls, Weakness Rehab Potential: Good Further Therapy Indicated?: Yes Evaluation Complexity: HISTORY: Medium, EXAM OF BODY SYSTEMS: Medium, CLINICAL DECISION MAKING: Medium Short Term Goals - Goals GOAL 1: Pt to increase BUE strength to 4+/5. Goal to be met by: 05/21/18 GOAL 2: Pt to increase dyn. std. balance. to Fair+. Goal to be met by: 05/21/18 GOAL 3: Pt to increase sink level ADLS to CGA. Goal to be met by: 05/21/18 [employer] Goals GOAL 1: Pt to increase BUE strength to 5/5. Goal to be met by: 05/24/18 GOAL 2: Pt to increase dyn. std. balance. to Good-. Goal to be met by: 05/24/18 GOAL 3: Pt to be Mod-I with ADLS. Goal to be met by: 05/24/18 Plan Plan of Care: Therapeutic EX, Neuromuscular Re-Educ, Therapeutic Activity, Self- Care/Home Management Frequency of Treatment: 1-2 X day, as tolerated Duration of Treatment: 1 Week Anticipated Discharge Destination: [facility] Treatment Diagnosis (ICD 10 Codes): M62.81 muscle weakness, Has the Physician been added for Co-signature?: Yes
[2018-05-17] MEDS: PROTONIX PO SCH (21:01)
[2018-05-17] MEDS: LIPITOR PO SCH (21:03)
[2018-05-18] MEDS ORDERED: LASIX TAB PO SCH (06:00)
[2018-05-18] MEDS: CYMBALTA PO SCH (09:01)
[2018-05-18] MEDS: ULORIC PO SCH (09:01)
[2018-05-18] MEDS: MYRBETRIQ PO SCH (09:01)
[2018-05-18] MEDS: MOMETASONE FUROATE 220 MCG IH SCH ×2 (09:01→20:36)
[2018-05-18] MEDS: CALCITRIOL 0.5 MCG PO SCH (09:01)
[2018-05-18] MEDS: NEURONTIN PO SCH ×2 (09:02→20:36)
[2018-05-18] MEDS: PROSCAR PO SCH (09:02)
[2018-05-18] MEDS: TRADJENTA PO SCH (09:02)
[2018-05-18] MEDS: CATAPRES PO SCH ×2 (09:02→20:36)
[2018-05-18] MEDS: COZAAR PO SCH (09:02)
[2018-05-18] MEDS: NORVASC PO SCH (09:02)
[2018-05-18] MEDS: FLOMAX PO SCH (09:02)
[2018-05-18] MEDS: ELIQUIS PO SCH ×2 (09:03→20:37)
[2018-05-18] MEDS: SODIUM CHLORIDE 1,000 ML IV SCH (09:06)
[2018-05-18] MEDS: LIPITOR PO SCH (20:35)
[2018-05-18] MEDS: PROTONIX PO SCH (20:36)
[2018-05-19 05:50] VITALS: BP 118/72; TEMP 98
[2018-05-19] MEDS: FLOMAX PO SCH (08:31)
[2018-05-19] MEDS: MOMETASONE FUROATE 220 MCG IH SCH (08:31)
[2018-05-19] MEDS: CATAPRES PO SCH (08:31)
[2018-05-19] MEDS: CALCITRIOL 0.5 MCG PO SCH (08:31)
[2018-05-19] MEDS: MYRBETRIQ PO SCH (08:32)
[2018-05-19] MEDS: NEURONTIN PO SCH (08:32)
[2018-05-19] MEDS: CYMBALTA PO SCH (08:32)
[2018-05-19] MEDS: COZAAR PO SCH (08:32)
[2018-05-19] MEDS: NORVASC PO SCH (08:32)
[2018-05-19] MEDS: TRADJENTA PO SCH (08:32)
[2018-05-19] MEDS: PROSCAR PO SCH (08:32)
[2018-05-19] MEDS: ULORIC PO SCH (08:32)
[2018-05-19] MEDS: ELIQUIS PO SCH (08:33)
--- NOTE | 2018-05-20 08:25 | OTDC ---
Date of Evaluation:05/16/18 Diagnosis:[Diarrhea] Number of visits:[] Last Date of Service:[05/17/18] Reason For Discharge:[Pt is weak and needs some rehab. ] Discharge Summary:[ Pt discharged to [facility] for short term rehab] CORINNE
--- NOTE | 2018-05-20 09:43 | HP ---
CHIEF COMPLAINT: He is having terrible diarrhea. DISCUSSION: This is a 77-year-old gentleman with chronic back pain, atrial fibrillation and previous stroke who presented to the office with severe diarrhea. The history comes from the patient and aywlfzjx-ml-ulx. The patient relates having several bouts of nonbloody loose stools per day, up to 10, associated with abdominal cramping and one episode of vomiting. There has been no blood in the stool. He has also had increased pain in his lower back. He does have a history of lumbar spondylosis and goes to the [facility] and is followed by Dr. Mcdonald. His pain has also increased as well; however, the main issue here today is the diarrhea, which has become such an issue that he cannot seem to walk to the bathroom without having diarrhea and for this issue, he is admitted for further evaluation and treatment. PAST MEDICAL HISTORY: 1. History of BPH 2. Previous history of stroke 3. History of atrial fibrillation on Eliquis 4. GERD 5. History of COPD 6. Urinary retention 7. Hypertension 8. Diabetes type 2 9. Low back pain with spondylolisthesis 10. Degenerative joint disease 11. Hyperlipidemia PAST SURGICAL HISTORY: 1. History of carpal tunnel release 2. History of cataract extraction 3. History of parathyroidectomy 4. History of knee replacements MEDICATIONS: 1. Norvasc 10 mg daily 2. Eliquis 5 mg b.i.d. 3. Lipitor 80 mg nightly 4. Rocalcitrol 0.5 mcg daily 5. Clonidine 0.1 mg b.i.d. 6. Cymbalta 60 mg daily 7. Ergocalciferol 50,000 units weekly 8. Uloric 40 mg daily 9. Proscar 5 mg daily 10. Flonase 2 puffs b.i.d. 11. Lasix 40 mg every 48 hours 12. Neurontin 300 mg daily and 600 mg at bedtime 13. Tradjenta 5 mg daily 14. Losartan 100 mg daily 15. Myrbetriq 50 mg daily 16. Moemtasone inhaler 220 mcg b.i.d. 17. Protonix 40 mg nightly 18. Flomax 0.8 daily ALLERGIES: NKDA SOCIAL HISTORY: He resides alone, denies any current history of tobacco or alcohol use. FAMILY HISTORY: Positive for COPD, diabetes mellitus type 2. REVIEW OF SYSTEMS: Notes back pain, history of nonbloody diarrhea, one episode of vomiting. Denies any headaches, visual changes, tinnitus, chest pain, shortness of breath, hemoptysis or urinary symptoms. PHYSICAL EXAMINATION: V/S: Temperature 96, Pulse 80, Respiratory Rate 18, Blood Pressure 120/80. HEENT: Pupils are round. NECK: Supple. CHEST: Clear. CARDIOVASCULAR: Regular rate and rhythm. ABDOMEN: Soft, nontender. EXTREMITIES: Distal extremities without cyanosis or edema. ASSESSMENT: 1. DIARRHEA WHICH HAS BECOME TO THE POINT OF DISABLEMENT. 2. ACUTE SUPERIMPOSED UPON CHRONIC LOW BACK PAIN. PLAN: 1. Before initiating treatment, we are going to collect stool studies including C. difficile. Will monitor diarrhea during hospitalization. 2. If back pain is disabling, we may initiate new imaging, place the orders. CORINNE
--- NOTE | 2018-05-20 09:55 | DS ---
PRINCIPAL DIAGNOSIS: 1. DIARRHEA, PROBABLY SECONDARY TO VIRAL GASTROENTERITIS 2. INTRACTABLE LOW BACK PAIN 3. CHRONIC KIDNEY DISEASE 4. HYPERTENSION 5. ATRIAL FIBRILLATION ON ELIQUIS 6. HYPERLIPIDEMIA 7. DEGENERATIVE JOINT DISEASE 8. BPH 9. DIABETES TYPE 2 10. NEUROGENIC BLADDER 11. GERD DISCUSSION: This is a 77-year-old gentleman who presented to my office with his daughter-in- law for evaluation of diarrhea. The diarrhea had been disabling to the point that he could not make it to his bathroom without creating issues with fecal staining in the floor. It has been disabling. He has not been able to leave the house secondary to the severity of his diarrhea. There has been no blood in the stool. He has had one episode of vomiting. Denies any fever. On exam, his abdomen was soft and nontender. This patient has been admitted for further evaluation of his treatment of diarrhea. For further details, see History and Physical. CLINICAL COURSE: The patient is admitted to my services. We ordered stool studies, which to date , has all been negative. His diarrhea actually stopped the second day of his hospitalization so stool for C. diff could not be collected. Again, his diarrhea stopped, his abdominal exam was benign, CT of his abdomen and pelvis was unrevealing. His back pain has continued to be a problem. He is followed by pain management, the [facility] in [place]; however, his pain has been so severe it has been difficult for him to walk. He denies any new injury. At this point, the patient is being discharged to rehab for evaluation by Physical Therapy. Please see orders. MTDD
[2018-05-23] MEDS ORDERED: DRISDOL PO SCH (09:00)
== END 2018-05-19 12:30 | DRG 392 ==
LOC: SCU 09:23
PROVIDERS: ADMIT Family Medicine; ATTEND Family Medicine
DX: A08.4 Viral intestinal infection, unspecified (principal); M54.5 Low back pain; N18.9 Chronic kidney disease, unspecified; I10 Essential (primary) hypertension; I48.91 Unspecified atrial fibrillation; Z79.01 Long term (current) use of anticoagulants; E78.5 Hyperlipidemia, unspecified; E11.9 Type 2 diabetes mellitus without complications; K21.9 Gastro-esophageal reflux disease without esophagitis; M19.90 Unspecified osteoarthritis, unspecified site; N40.0 Benign prostatic hyperplasia without lower urinary tract symptoms; N31.2 Flaccid neuropathic bladder, not elsewhere classified
CPT/HCPCS: 36415; 80053; 81001; 82962; 85025; 87015; 87045; 87081; 87899; 93005; 93010; 97802

== ENCOUNTER 2019-11-28 16:08 | Observation (INO) ==
[2019-11-28 16:11] VITALS: BMI 35.9
[2019-11-28] MEDS ORDERED: SODIUM CHLORIDE 500 ML IV STA (16:45)
[2019-11-28] MEDS ORDERED: LASIX IVP STA (16:45)
[2019-11-28 17:13] LABS: BASOPHILS % (AUTO) 0.1 % (0.0-3.0); HEMATOCRIT 41.5 % (42.0-52.0); HEMOGLOBIN 14.6 g/dl (14.0-18.0); IMMATURE GRANULOCYTE # (AUTO) 0.1 (0.0-1.0); IMMATURE GRANULOCYTE % (AUTO) 0.6 % (0.0-5.0); LYMPHOCYTES # (AUTO) 1.2 K/uL (0.60-3.4); LYMPHOCYTES % (AUTO) 7.1 (10.0-50.0); MEAN CORPUSCULAR HEMOGLOBIN 32.7 pg (27.0-31.0); MEAN CORPUSCULAR HGB CONC 35.2 (31.8-35.4); MEAN CORPUSCULAR VOLUME 92.8 fl (80.0-94.0); MONOCYTES # (AUTO) 1.4 K/uL (0.4-2.0); MONOCYTES % (AUTO) 8.6 (0-10); NEUTROPHILS # (AUTO) 13.5 K/ul (2.0-6.9); NEUTROPHILS % (AUTO) 83.6 % (42.2-75.2); PLATELET COUNT 245 10^3/uL (140-440); RDW COEFFICIENT OF VARIATION 13.5 % (11.6-14.8); RED BLOOD COUNT 4.47 10^6/ul (4.70-6.10); WHITE BLOOD COUNT 16.09 K/ul (4.2-10.2)
--- NOTE | 2019-11-28 17:26 | ED.PDOC ---
General ED Provider: Dr. EBENEZER ALVARADO MD Chief Complaint: Weakness Stated Complaint: generalized weakness and multiple falls x this am Time Seen by Physician: 16:12 Mode of Arrival: Stretcher Information Source: Patient, Family and Other (Pt was hearing impaired and confused.) Exam Limitations: Dementia Primary Care Provider: GABBY ORR Nursing and Triage Documentation Reviewed and Agree: Yes Does patient meet sepsis criteria?: No System Inflammatory Response Syndrome: Not Applicable Sepsis Protocol: For patient's 13 years and over: Temp is 96.8 and below OR 101 and greater Pulse >90 BPM Resp >20/minute Acutely Altered Mental Status Are patient's symptoms suggestive of a new infection, such as: -Pneumonia -Skin, Soft Tissue -Endocarditis -UTI -Bone, Joint Infection -Implantable Device -Acute Abdominal Infection -Wound Infection -Meningitis -Blood Stream Catheter Infection -Unknown Neurological Complaint Exam Weakness Complaint/Exam Last Known Well: PM 11/27/2019 Onset: Gradual Duration: 6 hrs Symptoms Are: Still present Timing: Intermittent (multiple falls today) Episodes Lasting: Hours Initial Severity: Moderate Current Severity: Mild Character: Reports Weak Aggravating: Reports Exertion Alleviating: Reports None Associated Signs and Symptoms: Reports Short of air and Loss of balance; Denies Nausea, Vomiting, Diaphoresis, Tinnitus, Chest pain, Palpitations, Unsteady gait, GI blood loss, Visual changes, Decreased oral intake, Change in medication, Change in diet and OTC meds JVD Present: No Glascow Coma Scale (see protocol): 15 Nystagmus Present: No Gag Reflex Present: Yes Meningeal Signs Positive: No Focal Weakness: Present None Focal Sensory Loss: Present None Gait: Unable Differential Diagnoses: ME, Metabolic abnormalities and Vasovagal reaction Review of Systems Review Of Systems Constitutional: Reports No symptoms Eyes: Reports No symptoms Ears, Nose, Mouth, Throat: Reports No symptoms Respiratory: Reports Short of air Cardiac: Reports Syncope GI: Reports No symptoms : Reports No symptoms Musculoskeletal: Reports Other (weakness) Skin: Reports No symptoms Neurological: Reports Cognitive dysfunction Endocrine: Reports No symptoms Hematologic/Lymphatic: Reports No symptoms All Other Systems: Reviewed and Negative [facility] Medical History (Updated 11/28/19 @ 21:14 by AD BRASHER RN) Bilateral cataracts Cancer of bladder COPD (chronic obstructive pulmonary disease) CVA (cerebral vascular accident) Diabetes Hypertension Neuropathy TIA (transient ischemic attack) Social History (Updated 11/28/19 @ 21:14 by AD BRASHER RN) Smoking and tobacco status: Never smoker Substance use type: does not use Housing: assisted living facility History of recent travel: No Physical Exam Physical Exam Appearance: Reports Well-appearing Ill-appearing: None Pain Distress: None Eyes: Reports OMAYRA, EOMI and Conjunctiva clear ENT: Reports Ears normal, Nose normal, Oropharynx normal and Other (pt is hearing impaired.) Neck: Supple Respiratory: Reports Airway patent and Breath sounds clear Cardiovascular: Reports RRR, Pulses normal, No rub and No murmur GI/: Reports Soft, Nontender, No masses, Bowel sounds normal and No Organomegaly Musculoskeletal: Reports No calf tenderness, Limited strength and Edema Skin: Reports Warm, Dry and Normal color Neurological: Reports Sensation intact, Motor intact, Reflexes intact, Cranial nerves intact, Alert and Oriented Psychiatric: Reports Depressed Re-Evaluation Re-Evaluation Time of Re-Evaluation: 17:43 Status: Improved Vital Signs Stable: Yes Pain Level: 0 Appearance: NAD Lungs: Clear Skin: Warm and Dry Neuro: Other (dementia) CV: RRR Critical Care Note Critical Care Note Total Time (mins): 10 Course Course Hematology/Chemistry: 11/29/19 04:30 11/29/19 04:30 Orders, Labs, Meds: Lab Review 11/28/19 11/28/19 11/28/19 17:00 17:00 17:00 WBC 16.09 H RBC 4.47 L Hgb 14.6 Hct 41.5 L MCV 92.8 MCH 32.7 H MCHC 35.2 RDW Coeff of Ysabel 13.5 Plt Count 245 Immature Gran % (Auto) 0.6 Neut % (Auto) 83.6 H Lymph % (Auto) 7.1 L Towner % (Auto) 8.6 Eos % (Auto) 0.0 Baso % (Auto) 0.1 Neut # (Auto) 13.5 H Lymph # (Auto) 1.2 Towner # (Auto) 1.4 Eos # (Auto) 0.0 Baso # (Auto) 0.0 Immature Gran # (Auto) 0.1 Sodium 136.6 Potassium 4.05 Chloride 100.6 Carbon Dioxide 26.1 Anion Gap 13.95 BUN 30.8 H Creatinine 1.93 H Estimated GFR (MDRD) 34.00 BUN/Creatinine Ratio 15.95 Glucose 139.9 H Lactic Acid Calcium 11.03 H Total Bilirubin 0.97 AST 74.5 H ALT 29.2 Alkaline Phosphatase 95.2 Total Creatine Kinase 2137.9 H CK-MB (CK-2) 17.300 H* CK-MB (CK-2) % 0.8000 NT-Pro-B Natriuret Pep Total Protein 6.95 Albumin 3.95 Globulin 3.00 Albumin/Globulin Ratio 1.31 11/28/19 11/28/19 17:00 17:00 WBC RBC Hgb Hct MCV MCH MCHC RDW Coeff of Ysabel Plt Count Immature Gran % (Auto) Neut % (Auto) Lymph % (Auto) Towner % (Auto) Eos % (Auto) Baso % (Auto) Neut # (Auto) Lymph # (Auto) Towner # (Auto) Eos # (Auto) Baso # (Auto) Immature Gran # (Auto) Sodium Potassium Chloride Carbon Dioxide Anion Gap BUN Creatinine Estimated GFR (MDRD) BUN/Creatinine Ratio Glucose Lactic Acid 2.75 H Calcium Total Bilirubin AST ALT Alkaline Phosphatase Total Creatine Kinase CK-MB (CK-2) CK-MB (CK-2) % NT-Pro-B Natriuret Pep 1080.000 H Total Protein Albumin Globulin Albumin/Globulin Ratio Orders Category Date Time Status OBSERVATION [PLACE PATIENT OBSERVATION] .TO MEDSURG ADMISSION 11/28/19 19:21 Active (MONITORED BED) EKG-(ED ONLY) Stat CARDIO 11/28/19 16:40 Completed ACTIVITY .BR with BRP CARE 11/28/19 19:22 Completed BLOOD GLUCOSE MONITORING 0630,1100,1700,2100 CARE 11/28/19 19:28 Active FALL:INCREASE COMFORT-AMBULATE PRN CARE 11/28/19 19:29 Completed GIVE HS SNACK 2100 CARE 11/28/19 19:23 Active INTAKE & OUTPUT Q8HR CARE 11/28/19 19:23 Completed NEUROLOGICAL CHECKS Q4HR CARE 11/28/19 19:24 Active NPO REMINDER: IMAGING ONCE CARE 11/28/19 16:42 Completed TELEMETRY MONITORING TELE CARE 11/28/19 19:21 Active VITAL SIGNS Q8HR CARE 11/28/19 19:23 Completed ADA 1800 [place]. DIET DIETARY 11/28/19 Breakfast Ordered HS SNACK DIETARY 11/28/19 Dinner Ordered ED IV/MEDIPORT/POWERPORT .ONCE EMERGENCY 11/28/19 16:45 Active BLOOD CULTURE (ED ONLY) Stat LAB 11/28/19 18:46 Results BLOOD CULTURE Routine LAB 11/28/19 21:30 Received CBC W/ AUTO DIFF DAILY@0600 LAB 11/29/19 04:30 Completed CBC W/ AUTO DIFF DAILY@0600 LAB 11/30/19 06:00 Ordered CBC W/ AUTO DIFF Stat LAB 11/28/19 17:00 Completed COMPREHENSIVE METABOLIC PANEL DAILY@0600 LAB 11/29/19 04:30 Completed COMPREHENSIVE METABOLIC PANEL Stat LAB 11/28/19 17:00 Completed CREATINE KINASE Stat LAB 11/28/19 17:00 Completed LACTIC ACID Stat LAB 11/28/19 17:00 Completed NT-PROBNP Stat LAB 11/28/19 17:00 Completed URINALYSIS C & S IF INDICATED Stat LAB 11/28/19 22:10 Completed 0.9 % Sodium Chloride [Saline Flush] MEDS 11/28/19 16:45 Active 1 syr IVF PRN PRN Apixaban [Eliquis] MEDS 11/28/19 21:00 Active 5 mg PO BID Atorvastatin Calcium [Lipitor] MEDS 11/28/19 21:00 Active 80 mg PO BEDTIME Ceftriaxone/D5w 1 gm Premix [Rocephin 1 gm/50 ml D5w] MEDS 11/29/19 09:00 Discontinued 1 gm in 50 ml IV DAILY Ceftriaxone/D5w 1 gm Premix [Rocephin 1 gm/50 ml D5w] MEDS 11/28/19 17:45 Discontinued 1 gm in 50 ml IV ONCE Clonidine HCl [Catapres] MEDS 11/28/19 21:00 Active 0.1 mg PO BEDTIME Duloxetine HCl [Cymbalta] MEDS 11/29/19 09:00 Active 60 mg PO DAILY Ergocalciferol (Vitamin D2) [Drisdol] MEDS 12/05/19 09:00 Active 50,000 unit PO WEEKLY Febuxostat [Uloric] MEDS 11/29/19 09:00 Active 40 mg PO DAILY Finasteride [Proscar] MEDS 11/29/19 09:00 Active 5 mg PO DAILY Furosemide [Lasix Tab] MEDS 11/29/19 09:00 Active 40 mg PO DAILY Furosemide [Lasix] MEDS 11/28/19 19:20 Discontinued 100 mg .ROUTE .STK-MED ONE Furosemide [Lasix] MEDS 11/28/19 16:45 Discontinued 80 mg IVP ONCE STA Gabapentin [Neurontin] MEDS 11/28/19 21:00 Discontinued 300 mg PO TID Insulin Regular, Human [Humulin R] MEDS 11/28/19 19:28 Active See Protocol SUBCUT PRN PRN Memantine HCl [Namenda] MEDS 11/28/19 21:00 Active 5 mg PO BID Mirabegron [Myrbetriq] MEDS 11/29/19 09:00 Active 50 mg PO DAILY Pantoprazole Sodium [Protonix] MEDS 11/29/19 06:30 Active 40 mg PO DAILY@0630 Sodium Chloride 0.9% [Sodium Chloride] 1,000 ml MEDS 11/28/19 19:30 Discontinued IV 75 mls/hr Sodium Chloride 0.9% [Sodium Chloride] 500 ml MEDS 11/28/19 16:45 Discontinued IV BOLUS Tamsulosin HCl [Flomax] MEDS 11/28/19 21:00 Active 0.8 mg PO BEDTIME calcitriol [Rocaltrol] MEDS 11/29/19 09:00 Active 0.5 mcg PO DAILY mometasone [Asmanex Twisthaler] MEDS 11/28/19 19:39 Active 1 inh IH Q12H PRN RESUSCITATION STATUS Routine OTHERS 11/28/19 19:[address] CHEST W/O CONTRAST Stat RADS 11/28/19 16:[address] HEAD W/O CONTRAST Stat RADS 11/28/19 16:[address] LUMBAR SPINE W/O CONTRAST Stat RADS 11/28/19 16:40 Completed Medications Generic Name Dose Route Start Last Admin Trade Name Freq PRN Reason Stop Dose Admin Hydrocodone Bitart/Acetaminophen 1 tab 11/29/19 08:58 11/29/19 09:59 [place] 5-325 PO 1 tab Q6HR PRN Administration Pain Amlodipine Besylate 5 mg 11/29/19 09:30 11/29/19 09:59 Norvasc PO 5 mg DAILY MANDIE Administration Apixaban 5 mg 11/28/19 21:00 11/29/19 08:27 Eliquis PO 5 mg BID MANDIE Administration Atorvastatin Calcium 80 mg 11/28/19 21:00 11/28/19 20:58 Lipitor PO 80 mg BEDTIME MANDIE Administration Clonidine 0.1 mg 11/28/19 21:00 11/28/19 20:58 Catapres PO 0.1 mg BEDTIME MANDIE Administration Duloxetine HCl 60 mg 11/29/19 09:00 11/29/19 08:26 Cymbalta PO 60 mg DAILY MANDIE Administration Ergocalciferol 50,000 unit 12/05/19 09:00 Drisdol PO WEEKLY MANDIE Febuxostat 40 mg 11/29/19 09:00 11/29/19 08:26 Uloric PO 40 mg DAILY MANDIE Administration Finasteride 5 mg 11/29/19 09:00 11/29/19 08:25 Proscar PO 5 mg DAILY MANDIE Administration Furosemide 40 mg 11/29/19 09:00 11/29/19 08:32 Lasix Tab PO 40 mg DAILY MANDIE Administration Gabapentin 600 mg 11/28/19 21:30 11/28/19 21:41 Neurontin PO 300 mg BEDTIME MANDIE Administration Gabapentin 300 mg 11/29/19 09:00 11/29/19 08:25 Neurontin PO 300 mg DAILY MANDIE Administration Heparin Sodium (Beef Lung) 300 units 11/29/19 10:00 11/29/19 11:13 Heparin Flush IVF 300 units DAILY MANDIE Administration CEFTRIAXONE/D5W 1 GM PREMIX 1 gm in 50 mls @ 75 mls/hr 11/29/19 10:00 11/29/19 09:58 Rocephin 1 Gm/50 Ml D5w IV 12/02/19 09:59 75 mls/hr DAILY MANDIE Administration Insulin Human Regular 0 unit 11/28/19 19:28 11/29/19 11:00 Humulin R SUBCUT 4 unit PRN PRN Administration Hyperglycemia Protocol Losartan Potassium 50 mg 11/29/19 09:30 11/29/19 09:59 Cozaar PO 50 mg DAILY MANDIE Administration Memantine 5 mg 11/28/19 21:00 11/29/19 08:26 Namenda PO 5 mg BID MANDIE Administration Mirabegron 50 mg 11/29/19 09:00 11/29/19 08:26 Myrbetriq PO 50 mg DAILY MANDIE Administration Non-Formulary Medication 0.5 mcg 11/29/19 09:00 11/29/19 08:37 Calcitriol [Rocaltrol] PO Not Given DAILY [facility] Non-Formulary Medication 1 inh 11/28/19 19:39 Mometasone [Asmanex Twisthaler] IH Q12H PRN Cough Pantoprazole Sodium 40 mg 11/29/19 06:30 11/29/19 06:02 Protonix PO 40 mg DAILY@0630 MANDIE Administration Saccharomyces Boulardii 250 mg 11/29/19 10:30 11/29/19 10:18 Florastor PO 250 mg BID MANDIE Administration Sodium Chloride 1 syr 11/28/19 16:45 11/29/19 11:13 Saline Flush IVF 1 syr PRN PRN Administration To flush IV Tamsulosin HCl 0.8 mg 11/28/19 21:00 11/28/19 20:58 Flomax PO 0.8 mg BEDTIME MANDIE Administration Discontinued Medications Generic Name Dose Route Start Last Admin Trade Name Freq PRN Reason Stop Dose Admin Furosemide 80 mg 11/28/19 16:45 11/28/19 19:21 Lasix IVP 11/28/19 16:46 80 mg ONCE STA Administration Gabapentin 300 mg 11/28/19 21:00 11/28/19 20:58 Neurontin PO 300 mg TID MANDIE Administration Sodium Chloride 500 mls @ 500 mls/hr 11/28/19 16:45 11/28/19 19:17 Sodium Chloride IV 11/28/19 17:44 500 mls/hr BOLUS STA Administration CEFTRIAXONE/D5W 1 GM PREMIX 1 gm in 50 mls @ 75 mls/hr 11/28/19 17:45 11/28/19 19:16 Rocephin 1 Gm/50 Ml D5w IV 11/28/19 18:24 75 mls/hr ONCE STA Administration Sodium Chloride 1,000 mls @ 75 mls/hr 11/28/19 19:30 11/29/19 09:47 Sodium Chloride IV Not Given .[id number] MANDIE CEFTRIAXONE/D5W 1 GM PREMIX 1 gm in 50 mls @ 75 mls/hr 11/29/19 09:00 Rocephin 1 Gm/50 Ml D5w IV 12/02/19 08:59 DAILY MANDIE CEFTRIAXONE/D5W 1 GM PREMIX 1 gm in 50 mls @ 75 mls/hr 11/29/19 10:00 Rocephin 1 Gm/50 Ml D5w IV 12/02/19 09:59 BEDTIME MANDIE Vital Signs: Temp Pulse Resp BP Pulse Ox 11/28/19 16:08 98.6 F 93 H 20 109/75 92 L Discharge Plan Discharge Patient Disposition: PLACED OBSERVATION ED Provider: EBENEZER ALVARADO Condition: Good Discharge Date/Time: 11/28/19 20:13
[2019-11-28 17:29] LABS: ALANINE AMINOTRANSFERASE 29.2 U/L (0-50); ALBUMIN 3.95 g/dL (3.5-5.0); ALKALINE PHOSPHATASE 95.2 U/L (56-119); ASPARTATE AMINO TRANSFERASE 74.5 U/L (17-59); BILIRUBIN,TOTAL 0.97 mg/dL (0.2-1.3); BLOOD UREA NITROGEN 30.8 mg/dL (9-20); CALCIUM 11.03 mg/dL (8.4-10.2); CARBON DIOXIDE 26.1 mmol/L (22-30.0); CHLORIDE 100.6 mmol/L (98-107); CREATININE 1.93 mg/dL (0.60-1.10); GLUCOSE 139.9 mg/dL (74-106); POTASSIUM 4.05 mmol/L (3.5-5.1); SODIUM 136.6 mmol/L (134.5-145); TOTAL PROTEIN 6.95 g/dL (6.3-8.2)
[2019-11-28] MEDS ORDERED: ROCEPHIN 1 GM/50 ML D5W 1 GM/50 ML BAG IV STA (17:45)
[2019-11-28 17:49] LABS: CREATINE KINASE 2137.9 U/L (55-170)
--- NOTE | 2019-11-28 18:01 | CT ---
EXAM: CT scan brain without contrast HISTORY: Weakness COMPARISON: CT scan brain 06/16/2017 FINDINGS: Contiguous axial images were obtained from skull base to the convexities without contrast utilizing 5-mm collimation. Sagittal and coronal reconstructions were imaged and reviewed. The vent ricles and CSF spaces are prominent compatible with age appropriate atrophy. There is extensive alonzo ventricular hypodensity noted compatible with chronic microvascular disease. Encephalomalacia is see n within the left frontal lobe. Atherosclerotic changes are seen involving cavernous internal caroti d arteries. The visualized paranasal sinuses and mastoid air cells are clear. The calvarium is inta ct. IMPRESSION: No acute intracranial findings
--- NOTE | 2019-11-28 18:06 | CT ---
EXAM: CT of the lumbar spine without contrast History: Lower back pain. Technique: Multiplanar CT images through the lumbar spine were obtained without the administration o f IV contrast Findings: Atherosclerotic vascular calcifications. Indeterminate exophytic right renal cortical mas ses measuring up to 3.3 cm. Colonic diverticulosis No acute fracture or subluxation of the lumbar spine. No suspicious lytic or blastic osseous lesions . Severe disc space narrowing at L5-S1. Moderate to severe disc space narrowing at L1-L2 and L3-L4. There is endplate sclerosis, osteophyte formation and vacuum disc phenomenon. L1-L2: No significant bony central canal stenosis or bony neural foraminal narrowing. L2-L3: No significant bony central canal stenosis. Mild to moderate bilateral bony neural foraminal narrowing secondary to ligamentous and facet hypertrophy L3-L4: Mild to moderate bony central canal stenosis. Moderate to severe bilateral bony neural forami nal narrowing secondary to ligamentous and facet hypertrophy L4-L5: No significant bony central canal stenosis. Mild to moderate bilateral bony neural foraminal narrowing secondary to ligamentous and facet hypertrophy L5-S1: No significant bony central canal stenosis. Moderate to severe left and moderate right bony neural foraminal narrowing secondary to ligamentous and facet hypertrophy. Impression: 1. No acute osseous abnormality of the lumbar spine. 2. Degenerative changes with level by level analysis as detailed above. 3. Indeterminate right renal cortical masses. Recommend outpatient renal ultrasound. 4. Colonic diverticulosis
--- NOTE | 2019-11-28 18:10 | CT ---
EXAM: CT scan chest without contrast HISTORY: Fall COMPARISON: CTA chest 06/16/2017 FINDINGS: Contiguous axial images obtained through the thorax without contrast 5-mm collimation. Sa gittal and coronal reconstructions were imaged and reviewed.. The "the thoracic inlet is there is no evidence of mediastinal lymphadenopathy. The heart is enlarged with trace pericardial effusion.. T here is minimal bibasilar atelectasis. Bone windows reveals no evidence of lytic or blastic lesions. . Gallstones are noted within the gallbladder. Left kidney was not identified. 2.9 cm possible hyp erdense cyst upper pole right kidney which could be further evaluated with ultrasound.. Two additiona l cysts are seen within the right kidney. IMPRESSION: Cardiomegaly with trace pericardial effusion.. Bibasilar atelectasis. Possible hyperdense cyst upper pole right kidney which was previously noted
[2019-11-28 18:47] LABS: CREATINE KINASE MB 17.3 ng/ml (0.0-2.38)
[2019-11-28] MEDS ORDERED: LASIX ONE (19:20)
[2019-11-28] MEDS ORDERED: MOMETASONE IH PRN (19:39)
[2019-11-28] MEDS: SODIUM CHLORIDE 1,000 ML IV SCH (20:54)
[2019-11-28] MEDS: ELIQUIS PO SCH (20:57)
[2019-11-28] MEDS: LIPITOR PO SCH (20:58)
[2019-11-28] MEDS: NAMENDA PO SCH (20:58)
[2019-11-28] MEDS: CATAPRES PO SCH (20:58)
[2019-11-28] MEDS: FLOMAX PO SCH (20:58)
[2019-11-28] MEDS ORDERED: NEURONTIN PO SCH (21:00)
[2019-11-28] MEDS: NEURONTIN PO SCH (21:41)
[2019-11-28 22:23] LABS: BILIRUBIN,URINE Negative (NEGATIVE); CLARITY,URINE Clear (CLEAR); COLOR,URINE Yellow (YELLOW); GLUCOSE, URINE (UA) Negative (NEGATIVE); KETONES,URINE Negative (NEGATIVE); LEUKOCYTE ESTERASE ,URINE Negative (NEGATIVE); NITRITE,URINE Negative (NEGATIVE); PH,URINE 6.5 (5-9); PROTEIN,URINE 2+ (NEGATIVE); URINE, BLOOD 2+ (NEGATIVE); UROBILINOGEN,URINE 0.2 (0.2)
[2019-11-28 22:28] LABS: URINE RBC, MICROSCOPIC 50-100 (0-2)
[2019-11-29 04:47] LABS: BASOPHILS % (AUTO) 0.2 % (0.0-3.0); EOSINOPHILS # (AUTO) 0.1 K/ul (0.0-0.7); EOSINOPHILS % (AUTO) 0.4 % (0.0-7.0); HEMATOCRIT 36.5 % (42.0-52.0); HEMOGLOBIN 12.5 g/dl (14.0-18.0); IMMATURE GRANULOCYTE # (AUTO) 0.1 (0.0-1.0); IMMATURE GRANULOCYTE % (AUTO) 0.4 % (0.0-5.0); LYMPHOCYTES # (AUTO) 1.6 K/uL (0.60-3.4); LYMPHOCYTES % (AUTO) 11.9 (10.0-50.0); MEAN CORPUSCULAR HEMOGLOBIN 31.9 pg (27.0-31.0); MEAN CORPUSCULAR HGB CONC 34.2 (31.8-35.4); MEAN CORPUSCULAR VOLUME 93.1 fl (80.0-94.0); MONOCYTES # (AUTO) 1.4 K/uL (0.4-2.0); MONOCYTES % (AUTO) 10.3 (0-10); NEUTROPHILS # (AUTO) 10.3 K/ul (2.0-6.9); NEUTROPHILS % (AUTO) 76.8 % (42.2-75.2); PLATELET COUNT 229 10^3/uL (140-440); RDW COEFFICIENT OF VARIATION 13.8 % (11.6-14.8); RED BLOOD COUNT 3.92 10^6/ul (4.70-6.10); WHITE BLOOD COUNT 13.46 K/ul (4.2-10.2)
[2019-11-29 04:58] LABS: ALBUMIN 3.51 g/dL (3.5-5.0); ALKALINE PHOSPHATASE 85.2 U/L (56-119); ASPARTATE AMINO TRANSFERASE 71.6 U/L (17-59); BILIRUBIN,TOTAL 0.87 mg/dL (0.2-1.3); BLOOD UREA NITROGEN 36.5 mg/dL (9-20); CALCIUM 10.71 mg/dL (8.4-10.2); CARBON DIOXIDE 27.2 mmol/L (22-30.0); CHLORIDE 103.5 mmol/L (98-107); CREATININE 2.2 mg/dL (0.60-1.10); GLUCOSE 132.4 mg/dL (74-106); POTASSIUM 3.59 mmol/L (3.5-5.1); SODIUM 136.2 mmol/L (134.5-145); TOTAL PROTEIN 6.26 g/dL (6.3-8.2)
[2019-11-29] MEDS: PROTONIX PO SCH (06:02)
[2019-11-29] MEDS: NEURONTIN PO SCH ×2 (08:25→20:56)
[2019-11-29] MEDS: PROSCAR PO SCH (08:25)
[2019-11-29] MEDS: MYRBETRIQ PO SCH (08:26)
[2019-11-29] MEDS: NAMENDA PO SCH ×2 (08:26→20:56)
[2019-11-29] MEDS: CYMBALTA PO SCH (08:26)
[2019-11-29] MEDS: ULORIC PO SCH (08:26)
[2019-11-29] MEDS: ELIQUIS PO SCH ×2 (08:27→20:55)
[2019-11-29] MEDS: LASIX TAB PO SCH (08:32)
[2019-11-29] MEDS: CALCITRIOL 0.5 MCG PO SCH (08:37)
[2019-11-29] MEDS ORDERED: ROCEPHIN 1 GM/50 ML D5W 1 GM/50 ML BAG IV SCH ×2 (09:00→10:00)
[2019-11-29] MEDS ORDERED: FLORASTOR PO SCH ×2 (09:30→10:00)
[2019-11-29] MEDS: SODIUM CHLORIDE 1,000 ML IV SCH (09:47)
[2019-11-29] MEDS: ROCEPHIN 1 GM/50 ML D5W 1 GM/50 ML BAG IV SCH (09:58)
[2019-11-29] MEDS: COZAAR PO SCH (09:59)
[2019-11-29] MEDS: NORVASC PO SCH (09:59)
[2019-11-29] MEDS: NORCO 5-325 PO PRN (09:59)
[2019-11-29] MEDS: FLORASTOR PO SCH ×2 (10:18→20:56)
[2019-11-29] MEDS: HUMULIN R SUBCUT PRN (11:00)
[2019-11-29] MEDS: LIPITOR PO SCH (20:56)
[2019-11-29] MEDS: FLOMAX PO SCH (20:56)
[2019-11-29] MEDS: CATAPRES PO SCH (20:57)
[2019-11-30 04:53] LABS: BASOPHILS % (AUTO) 0.4 % (0.0-3.0); EOSINOPHILS # (AUTO) 0.3 K/ul (0.0-0.7); HEMATOCRIT 34.1 % (42.0-52.0); HEMOGLOBIN 11.7 g/dl (14.0-18.0); IMMATURE GRANULOCYTE % (AUTO) 0.3 % (0.0-5.0); LYMPHOCYTES % (AUTO) 21.4 (10.0-50.0); MEAN CORPUSCULAR HEMOGLOBIN 32.6 pg (27.0-31.0); MEAN CORPUSCULAR HGB CONC 34.3 (31.8-35.4); MONOCYTES # (AUTO) 0.9 K/uL (0.4-2.0); MONOCYTES % (AUTO) 9.3 (0-10); NEUTROPHILS % (AUTO) 65.6 % (42.2-75.2); PLATELET COUNT 201 10^3/uL (140-440); RDW COEFFICIENT OF VARIATION 13.7 % (11.6-14.8); RED BLOOD COUNT 3.59 10^6/ul (4.70-6.10); WHITE BLOOD COUNT 9.12 K/ul (4.2-10.2)
[2019-11-30 05:05] LABS: CALCIUM 10.15 mg/dL (8.4-10.2); CARBON DIOXIDE 27.9 mmol/L (22-30.0); CHLORIDE 103.3 mmol/L (98-107); CREATINE KINASE 619.4 U/L (55-170); CREATININE 2.07 mg/dL (0.60-1.10); GLUCOSE 124.8 mg/dL (74-106); POTASSIUM 3.74 mmol/L (3.5-5.1); SODIUM 134.8 mmol/L (134.5-145)
[2019-11-30 05:19] LABS: CREATINE KINASE MB 4.92 ng/ml (0.0-2.38)
[2019-11-30] MEDS: PROTONIX PO SCH (05:53)
[2019-11-30] MEDS: ROCEPHIN 1 GM/50 ML D5W 1 GM/50 ML BAG IV SCH (08:51)
[2019-11-30] MEDS: FLORASTOR PO SCH ×2 (08:51→20:52)
[2019-11-30] MEDS: COZAAR PO SCH (08:52)
[2019-11-30] MEDS: NAMENDA PO SCH ×2 (08:52→20:53)
[2019-11-30] MEDS: LASIX TAB PO SCH (08:52)
[2019-11-30] MEDS: NORVASC PO SCH (08:52)
[2019-11-30] MEDS: PROSCAR PO SCH (08:53)
[2019-11-30] MEDS: MYRBETRIQ PO SCH (08:53)
[2019-11-30] MEDS: ULORIC PO SCH (08:53)
[2019-11-30] MEDS: CYMBALTA PO SCH (08:53)
[2019-11-30] MEDS: NEURONTIN PO SCH ×2 (08:53→20:52)
[2019-11-30] MEDS: ELIQUIS PO SCH ×2 (08:54→20:51)
[2019-11-30] MEDS: CALCITRIOL 0.5 MCG PO SCH (09:45)
[2019-11-30] MEDS: HUMULIN R SUBCUT PRN (11:12)
[2019-11-30] MEDS: FLOMAX PO SCH (20:52)
[2019-11-30] MEDS: CATAPRES PO SCH (20:52)
[2019-11-30] MEDS: LIPITOR PO SCH (20:52)
[2019-11-30] MEDS: NORCO 5-325 PO PRN (20:53)
[2019-12-01] MEDS: PROTONIX PO SCH (05:41)
[2019-12-01] MEDS: MYRBETRIQ PO SCH (09:02)
[2019-12-01] MEDS: NEURONTIN PO SCH ×2 (09:02→20:17)
[2019-12-01] MEDS: FLORASTOR PO SCH ×2 (09:02→20:16)
[2019-12-01] MEDS: PROSCAR PO SCH (09:02)
[2019-12-01] MEDS: COZAAR PO SCH (09:03)
[2019-12-01] MEDS: CYMBALTA PO SCH (09:03)
[2019-12-01] MEDS: NORVASC PO SCH (09:03)
[2019-12-01] MEDS: ULORIC PO SCH (09:03)
[2019-12-01] MEDS: LASIX TAB PO SCH (09:03)
[2019-12-01] MEDS: NAMENDA PO SCH ×2 (09:03→20:17)
[2019-12-01] MEDS: ELIQUIS PO SCH ×2 (09:03→20:18)
[2019-12-01] MEDS: CALCITRIOL 0.5 MCG PO SCH (09:08)
[2019-12-01] MEDS: NORCO 5-325 PO PRN (15:55)
[2019-12-01] MEDS: CATAPRES PO SCH (20:15)
[2019-12-01] MEDS: FLOMAX PO SCH (20:15)
[2019-12-01] MEDS: LIPITOR PO SCH (20:16)
[2019-12-02] MEDS: PROTONIX PO SCH (05:47)
--- NOTE | 2019-12-02 06:19 | PCM ---
Chief Complaint Chief Complaint: "he fell and wont walk" History of Present Illness History of Present Illness: This is a very pleasant 79 yr male with hx of cva, afib, htn and dm type 2 as well as chronic low back pain who sustained several falls over the past few days. His son discovered him at assisted living facility iwht inability to move. He was seen in the ed and found to have signficant rhadomyolysis and admitted for further tx. Review of Systems Constitutional: Reports Weakness Eyes: Reports No symptoms Ears: Reports No symptoms Nose: Reports No symptoms Throat: Reports No symptoms Mouth: Reports No symptoms Respiratory: Reports No symptoms Cardiovascular: Reports No symptoms Gastrointestinal: Reports No symptoms Genitourinary: Reports No symptoms Neurological: Reports No symptoms Musculoskeletal: Reports Pain Skin: Reports No symptoms Immunology: Reports No symptoms Hematology: Reports No symptoms Endocrine: Reports No symptoms Psychiatric: Reports No symptoms Habits: Denies Tobacco use, Substance use, Alcohol use and Other Allergies Allergies Allergy/AdvReac Type Severity Reaction Status Date / Time No Known Allergies Allergy Verified 11/28/19 16:11 [facility] Medical History Bilateral cataracts Cancer of bladder COPD (chronic obstructive pulmonary disease) CVA (cerebral vascular accident) Diabetes Hypertension Neuropathy TIA (transient ischemic attack) Surgical History H/O parathyroidectomy History of carpal tunnel surgery Hx of partial nephrectomy Hx of partial nephrectomy Social History Smoking and tobacco status: Never smoker Substance use type: does not use Housing: assisted living facility History of recent travel: No Medications Medications: Medications Generic Name Dose Route Start Last Admin Trade Name Freq PRN Reason Stop Dose Admin Hydrocodone Bitart/Acetaminophen 1 tab 11/29/19 08:58 12/01/19 15:55 [place] 5-325 PO 1 tab Q6HR PRN Administration Pain Amlodipine Besylate 5 mg 11/29/19 09:30 12/01/19 09:03 Norvasc PO 5 mg DAILY MANDIE Administration Apixaban 5 mg 11/28/19 21:00 12/01/19 20:18 Eliquis PO 5 mg BID MANDIE Administration Atorvastatin Calcium 80 mg 11/28/19 21:00 12/01/19 20:16 Lipitor PO 80 mg BEDTIME MANDIE Administration Clonidine 0.1 mg 11/28/19 21:00 12/01/19 20:15 Catapres PO 0.1 mg BEDTIME MANDIE Administration Duloxetine HCl 60 mg 11/29/19 09:00 12/01/19 09:03 Cymbalta PO 60 mg DAILY MANDIE Administration Ergocalciferol 50,000 unit 12/05/19 09:00 Drisdol PO WEEKLY MANDIE Febuxostat 40 mg 11/29/19 09:00 12/01/19 09:03 Uloric PO 40 mg DAILY MANDIE Administration Finasteride 5 mg 11/29/19 09:00 12/01/19 09:02 Proscar PO 5 mg DAILY MANDIE Administration Furosemide 40 mg 11/29/19 09:00 12/01/19 09:03 Lasix Tab PO 40 mg DAILY MANDIE Administration Gabapentin 600 mg 11/28/19 21:30 12/01/19 20:17 Neurontin PO 600 mg BEDTIME MANDIE Administration Gabapentin 300 mg 11/29/19 09:00 12/01/19 09:02 Neurontin PO 300 mg DAILY MANDIE Administration Heparin Sodium (Beef Lung) 300 units 11/29/19 10:00 12/01/19 09:05 Heparin Flush IVF 300 units DAILY MANDIE Administration Insulin Human Regular 0 unit 11/28/19 19:28 11/30/19 11:12 Humulin R SUBCUT 3 unit PRN PRN Administration Hyperglycemia Protocol Losartan Potassium 50 mg 11/29/19 09:30 12/01/19 09:03 Cozaar PO 50 mg DAILY MANDIE Administration Memantine 5 mg 11/28/19 21:00 12/01/19 20:17 Namenda PO 5 mg BID MANDIE Administration Mirabegron 50 mg 11/29/19 09:00 12/01/19 09:02 Myrbetriq PO 50 mg DAILY MANDIE Administration Non-Formulary Medication 0.5 mcg 11/29/19 09:00 12/01/19 09:08 Calcitriol [Rocaltrol] PO Not Given DAILY MANDIE Non-Formulary Medication 1 inh 11/28/19 19:39 Mometasone [Asmanex Twisthaler] IH Q12H PRN Cough Pantoprazole Sodium 40 mg 11/29/19 06:30 12/02/19 05:47 Protonix PO 40 mg DAILY@0630 MANDIE Administration Saccharomyces Boulardii 250 mg 11/29/19 10:30 12/01/19 20:16 Florastor PO 250 mg BID MANDIE Administration Sodium Chloride 1 syr 11/28/19 16:45 12/02/19 05:47 Saline Flush IVF 1 syr PRN PRN Administration To flush IV Tamsulosin HCl 0.8 mg 11/28/19 21:00 12/01/19 20:15 Flomax PO 0.8 mg BEDTIME MANDIE Administration Body Composition Height: 5 ft 10 in Weight: 250 lb Body Mass Index (BMI): 35.9 Vital Signs Temperature: 97.9 F Pulse Rate: 73 Respiratory Rate: 18 Blood Pressure: 114/86 O2 Sat by Pulse Oximetry: 96 Physical Examination Appearance: Reports Well-appearing Ill-appearing: None Pain Distress: Mild Eyes: Reports OMAYRA and EOMI ENT: Reports Ears normal Neck: Supple Respiratory: Reports Airway patent and Breath sounds equal Cardiovascular: Reports RRR, Pulses normal, No rub and No murmur GI/: Reports Soft, Nontender and No masses Musculoskeletal: Reports Limited ROM and Limited strength Skin: Reports Warm, Dry and Normal color Neurological: Reports Sensation intact, Alert, Oriented and Abnormal reflexes Psychiatric: Reports Affect appropriate Lab/Tests/Diagnostic Imaging Lab/Tests/Diagnostic Imaging: Lab Review 11/28/19 11/28/19 11/28/19 17:00 17:00 17:00 WBC 16.09 H RBC 4.47 L Hgb 14.6 Hct 41.5 L MCV 92.8 MCH 32.7 H MCHC 35.2 RDW Coeff of [place] 13.5 Plt Count 245 Immature Gran % (Auto) 0.6 Neut % (Auto) 83.6 H Lymph % (Auto) 7.1 L Winn % (Auto) 8.6 Eos % (Auto) 0.0 Baso % (Auto) 0.1 Neut # (Auto) 13.5 H Lymph # (Auto) 1.2 Winn # (Auto) 1.4 Eos # (Auto) 0.0 Baso # (Auto) 0.0 Immature Gran # (Auto) 0.1 Sodium 136.6 Potassium 4.05 Chloride 100.6 Carbon Dioxide 26.1 Anion Gap 13.95 BUN 30.8 H Creatinine 1.93 H Estimated GFR (MDRD) 34.00 BUN/Creatinine Ratio 15.95 Glucose 139.9 H Lactic Acid Calcium 11.03 H Total Bilirubin 0.97 AST 74.5 H ALT 29.2 Alkaline Phosphatase 95.2 Total Creatine Kinase 2137.9 H CK-MB (CK-2) 17.300 H* CK-MB (CK-2) % 0.8000 NT-Pro-B Natriuret Pep Total Protein 6.95 Albumin 3.95 Globulin 3.00 Albumin/Globulin Ratio 1.31 Urine Color Urine Clarity Urine pH Ur Specific Vian Urine Protein Urine Glucose (UA) Urine Ketones Urine Blood Urine Nitrite Urine Bilirubin Urine Urobilinogen Ur Leukocyte Esterase Urine Microscopic RBC Ur Squamous Epith Cells 11/28/19 11/28/19 11/28/19 17:00 17:00 22:10 WBC RBC Hgb Hct MCV MCH MCHC RDW Coeff of [place] Plt Count Immature Gran % (Auto) Neut % (Auto) Lymph % (Auto) Winn % (Auto) Eos % (Auto) Baso % (Auto) Neut # (Auto) Lymph # (Auto) Winn # (Auto) Eos # (Auto) Baso # (Auto) Immature Gran # (Auto) Sodium Potassium Chloride Carbon Dioxide Anion Gap BUN Creatinine Estimated GFR (MDRD) BUN/Creatinine Ratio Glucose Lactic Acid 2.75 H Calcium Total Bilirubin AST ALT Alkaline Phosphatase Total Creatine Kinase CK-MB (CK-2) CK-MB (CK-2) % NT-Pro-B Natriuret Pep 1080.000 H Total Protein Albumin Globulin Albumin/Globulin Ratio Urine Color Yellow Urine Clarity Clear Urine pH 6.5 Ur Specific Vian 1.015 Urine Protein 2+ H Urine Glucose (UA) Negative Urine Ketones Negative Urine Blood 2+ H Urine Nitrite Negative Urine Bilirubin Negative Urine Urobilinogen 0.2 Ur Leukocyte Esterase Negative Urine Microscopic RBC 50-100 Ur Squamous Epith Cells 5-10 11/29/19 11/29/19 11/30/19 04:30 04:30 04:40 WBC 13.46 H 9.12 RBC 3.92 L 3.59 L Hgb 12.5 L 11.7 L Hct 36.5 L 34.1 L MCV 93.1 95.0 H MCH 31.9 H 32.6 H MCHC 34.2 34.3 RDW Coeff of [place]sabel 13.8 13.7 Plt Count 229 201 Immature Gran % (Auto) 0.4 0.3 Neut % (Auto) 76.8 H 65.6 Lymph % (Auto) 11.9 21.4 Winn % (Auto) 10.3 H 9.3 Eos % (Auto) 0.4 3.0 Baso % (Auto) 0.2 0.4 Neut # (Auto) 10.3 H 6.0 Lymph # (Auto) 1.6 2.0 Winn # (Auto) 1.4 0.9 Eos # (Auto) 0.1 0.3 Baso # (Auto) 0.0 0.0 Immature Gran # (Auto) 0.1 0.0 Sodium 136.2 Potassium 3.59 Chloride 103.5 Carbon Dioxide 27.2 Anion Gap 9.09 BUN 36.5 H Creatinine 2.20 H Estimated GFR (MDRD) 29.00 BUN/Creatinine Ratio 16.59 Glucose 132.4 H Lactic Acid Calcium 10.71 H Total Bilirubin 0.87 AST 71.6 H ALT 28.0 Alkaline Phosphatase 85.2 Total Creatine Kinase CK-MB (CK-2) CK-MB (CK-2) % NT-Pro-B Natriuret Pep Total Protein 6.26 L Albumin 3.51 Globulin 2.75 Albumin/Globulin Ratio 1.27 Urine Color Urine Clarity Urine pH Ur Specific Vian Urine Protein Urine Glucose (UA) Urine Ketones Urine Blood Urine Nitrite Urine Bilirubin Urine Urobilinogen Ur Leukocyte Esterase Urine Microscopic RBC Ur Squamous Epith Cells 11/30/19 11/30/19 04:40 04:40 WBC RBC Hgb Hct MCV MCH MCHC RDW Coeff of [place] Plt Count Immature Gran % (Auto) Neut % (Auto) Lymph % (Auto) Winn % (Auto) Eos % (Auto) Baso % (Auto) Neut # (Auto) Lymph # (Auto) Winn # (Auto) Eos # (Auto) Baso # (Auto) Immature Gran # (Auto) Sodium 134.8 Potassium 3.74 Chloride 103.3 Carbon Dioxide 27.9 Anion Gap 7.34 BUN 42.0 H Creatinine 2.07 H Estimated GFR (MDRD) 31.00 BUN/Creatinine Ratio 20.28 Glucose 124.8 H Lactic Acid 0.87 Calcium 10.15 Total Bilirubin AST ALT Alkaline Phosphatase Total Creatine Kinase 619.4 H CK-MB (CK-2) 4.920 H CK-MB (CK-2) % 0.7900 NT-Pro-B Natriuret Pep Total Protein Albumin Globulin Albumin/Globulin Ratio Urine Color Urine Clarity Urine pH Ur Specific Vian Urine Protein Urine Glucose (UA) Urine Ketones Urine Blood Urine Nitrite Urine Bilirubin Urine Urobilinogen Ur Leukocyte Esterase Urine Microscopic RBC Ur Squamous Epith Cells Orders Category Date Time Status OBSERVATION [PLACE PATIENT OBSERVATION] .TO MEDSUR ADMISSION 11/28/19 19:21 Active (MONITORED BED) EKG-(ED ONLY) Stat CARDIO 11/28/19 16:40 Completed OXYGEN Routine CARDIO 11/28/19 19:35 Active ACTIVITY .BR with BRP CARE 11/28/19 19:22 Completed ACTIVITY TID CARE 11/29/19 09:01 Active BLOOD GLUCOSE MONITORING 0630,1100,1700,2100 CARE 11/28/19 19:28 Active CASE MANAGEMENT CONSULT ONCE CARE 12/01/19 08:00 Completed FALL:INCREASE COMFORT-AMBULATE PRN CARE 11/28/19 19:29 Completed GIVE HS SNACK 2100 CARE 11/28/19 19:23 Active INTAKE & OUTPUT Q8HR CARE 11/28/19 19:23 Completed NEUROLOGICAL CHECKS Q4HR CARE 11/28/19 19:24 Active NPO REMINDER: IMAGING ONCE CARE 11/28/19 16:42 Completed TELEMETRY MONITORING TELE CARE 11/28/19 19:21 Active VITAL SIGNS Q8HR CARE 11/28/19 19:23 Completed ADA 1800 [place]. DIET DIETARY 11/28/19 Breakfast Ordered HS SNACK DIETARY 11/28/19 Dinner Ordered ED IV/MEDIPORT/POWERPORT .ONCE EMERGENCY 11/28/19 16:45 Active BLOOD CULTURE (ED ONLY) Stat LAB 11/28/19 18:46 Results BLOOD CULTURE Routine LAB 11/28/19 21:30 Results BMP [BASIC METABOLIC PANEL] Routine LAB 11/30/19 04:40 Completed CBC W/ AUTO DIFF DAILY@0600 LAB 11/29/19 04:30 Completed CBC W/ AUTO DIFF DAILY@0600 LAB 11/30/19 04:40 Completed CBC W/ AUTO DIFF Stat LAB 11/28/19 17:00 Completed COMPREHENSIVE METABOLIC PANEL DAILY@0600 LAB 11/29/19 04:30 Completed COMPREHENSIVE METABOLIC PANEL Stat LAB 11/28/19 17:00 Completed CREATINE KINASE Routine LAB 11/30/19 04:40 Completed CREATINE KINASE Stat LAB 11/28/19 17:00 Completed LACTIC ACID Routine LAB 11/30/19 04:40 Completed LACTIC ACID Stat LAB 11/28/19 17:00 Completed NT-PROBNP Stat LAB 11/28/19 17:00 Completed URINALYSIS C & S IF INDICATED Stat LAB 11/28/19 22:10 Completed 0.9 % Sodium Chloride [Saline Flush] MEDS 11/28/19 16:45 Active 1 syr IVF PRN PRN Amlodipine Besylate [Norvasc] MEDS 11/29/19 09:30 Active 5 mg PO DAILY Apixaban [Eliquis] MEDS 11/28/19 21:00 Active 5 mg PO BID Atorvastatin Calcium [Lipitor] MEDS 11/28/19 21:00 Active 80 mg PO BEDTIME Ceftriaxone/D5w 1 gm Premix [Rocephin 1 gm/50 ml D5w] MEDS 11/29/19 10:00 Discontinued 1 gm in 50 ml IV BEDTIME Ceftriaxone/D5w 1 gm Premix [Rocephin 1 gm/50 ml D5w] MEDS 11/29/19 09:00 Discontinued 1 gm in 50 ml IV DAILY Ceftriaxone/D5w 1 gm Premix [Rocephin 1 gm/50 ml D5w] MEDS 11/29/19 10:00 Dis continued 1 gm in 50 ml IV DAILY Ceftriaxone/D5w 1 gm Premix [Rocephin 1 gm/50 ml D5w] MEDS 11/28/19 17:45 Discontinued 1 gm in 50 ml IV ONCE Clonidine HCl [Catapres] MEDS 11/28/19 21:00 Active 0.1 mg PO BEDTIME Duloxetine HCl [Cymbalta] MEDS 11/29/19 09:00 Active 60 mg PO DAILY Ergocalciferol (Vitamin D2) [Drisdol] MEDS 12/05/19 09:00 Active 50,000 unit PO WEEKLY Febuxostat [Uloric] MEDS 11/29/19 09:00 Active 40 mg PO DAILY Finasteride [Proscar] MEDS 11/29/19 09:00 Active 5 mg PO DAILY Furosemide [Lasix Tab] MEDS 11/29/19 09:00 Active 40 mg PO DAILY Furosemide [Lasix] MEDS 11/28/19 19:20 Discontinued 100 mg .ROUTE .STK-MED ONE Furosemide [Lasix] MEDS 11/28/19 16:45 Discontinued 80 mg IVP ONCE STA Gabapentin [Neurontin] MEDS 11/29/19 09:00 Active 300 mg PO DAILY Gabapentin [Neurontin] MEDS 11/28/19 21:00 Discontinued 300 mg PO TID Gabapentin [Neurontin] MEDS 11/28/19 21:30 Active 600 mg PO BEDTIME Heparin Sodium,Porcine/Pf [Heparin Flush] MEDS 11/29/19 10:00 Active 300 units IVF DAILY Hydrocodone Bit/Acetaminophen [[place] 5-325] MEDS 11/29/19 08:58 Active 1 tab PO Q6HR PRN Insulin Regular, Human [Humulin R] MEDS 11/28/19 19:28 Active See Protocol SUBCUT PRN PRN Losartan Potassium [Cozaar] MEDS 11/29/19 09:30 Active 50 mg PO DAILY Memantine HCl [Namenda] MEDS 11/28/19 21:00 Active 5 mg PO BID Mirabegron [Myrbetriq] MEDS 11/29/19 09:00 Active 50 mg PO DAILY Pantoprazole Sodium [Protonix] MEDS 11/29/19 06:30 Active 40 mg PO DAILY@0630 Saccharomyces Boulardii [Florastor] MEDS 11/29/19 10:30 Active 250 mg PO BID Sodium Chloride 0.9% [Sodium Chloride] 1,000 ml MEDS 11/28/19 19:30 Discontinu ed IV 75 mls/hr Sodium Chloride 0.9% [Sodium Chloride] 500 ml MEDS 11/28/19 16:45 Discontinued IV BOLUS Tamsulosin HCl [Flomax] MEDS 11/28/19 21:00 Active 0.8 mg PO BEDTIME calcitriol [Rocaltrol] MEDS 11/29/19 09:00 Active 0.5 mcg PO DAILY mometasone [Asmanex Twisthaler] MEDS 11/28/19 19:39 Active 1 inh IH Q12H PRN RESUSCITATION STATUS Routine OTHERS 11/28/19 19:[address] CHEST W/O CONTRAST Stat RADS 11/28/19 16:[address] HEAD W/O CONTRAST Stat RADS 11/28/19 16:[address] LUMBAR SPINE W/O CONTRAST Stat RADS 11/28/19 16:40 Completed PT CONSULT Routine THERAPIES 11/28/19 14:13 Completed PT CONSULT Routine THERAPIES 12/01/19 08:00 Completed PT CONSULT Routine THERAPIES 12/01/19 10:00 Completed Medications Generic Name Dose Route Start Last Admin Trade Name Freq PRN Reason Stop Dose Admin Hydrocodone Bitart/Acetaminophen 1 tab 11/29/19 08:58 12/01/19 15:55 [place] 5-325 PO 1 tab Q6HR PRN Administration Pain Amlodipine Besylate 5 mg 11/29/19 09:30 12/01/19 09:03 Norvasc PO 5 mg DAILY MANDIE Administration Apixaban 5 mg 11/28/19 21:00 12/01/19 20:18 Eliquis PO 5 mg BID MANDEI Administration Atorvastatin Calcium 80 mg 11/28/19 21:00 12/01/19 20:16 Lipitor PO 80 mg BEDTIME MANDIE Administration Clonidine 0.1 mg 11/28/19 21:00 12/01/19 20:15 Catapres PO 0.1 mg BEDTIME MANDIE Administration Duloxetine HCl 60 mg 11/29/19 09:00 12/01/19 09:03 Cymbalta PO 60 mg DAILY MANDIE Administration Ergocalciferol 50,000 unit 12/05/19 09:00 Drisdol PO WEEKLY MANDIE Febuxostat 40 mg 11/29/19 09:00 12/01/19 09:03 Uloric PO 40 mg DAILY MANDIE Administration Finasteride 5 mg 11/29/19 09:00 12/01/19 09:02 Proscar PO 5 mg DAILY MANDIE Administration Furosemide 40 mg 11/29/19 09:00 12/01/19 09:03 Lasix Tab PO 40 mg DAILY MANDIE Administration Gabapentin 600 mg 11/28/19 21:30 12/01/19 20:17 Neurontin PO 600 mg BEDTIME MANDIE Administration Gabapentin 300 mg 11/29/19 09:00 12/01/19 09:02 Neurontin PO 300 mg DAILY MANDIE Administration Heparin Sodium (Beef Lung) 300 units 11/29/19 10:00 12/01/19 09:05 Heparin Flush IVF 300 units DAILY MANDIE Administration Insulin Human Regular 0 unit 11/28/19 19:28 11/30/19 11:12 Humulin R SUBCUT 3 unit PRN PRN Administration Hyperglycemia Protocol Losartan Potassium 50 mg 11/29/19 09:30 12/01/19 09:03 Cozaar PO 50 mg DAILY MANDIE Administration Memantine 5 mg 11/28/19 21:00 12/01/19 20:17 Namenda PO 5 mg BID MANDIE Administration Mirabegron 50 mg 11/29/19 09:00 12/01/19 09:02 Myrbetriq PO 50 mg DAILY MANDIE Administration Non-Formulary Medication 0.5 mcg 11/29/19 09:00 12/01/19 09:08 Calcitriol [Rocaltrol] PO Not Given DAILY MANDIE Non-Formulary Medication 1 inh 11/28/19 19:39 Mometasone [Asmanex Twisthaler] IH Q12H PRN Cough Pantoprazole Sodium 40 mg 11/29/19 06:30 12/02/19 05:47 Protonix PO 40 mg DAILY@0630 MANDIE Administration Saccharomyces Boulardii 250 mg 11/29/19 10:30 12/01/19 20:16 Florastor PO 250 mg BID MANDIE Administration Sodium Chloride 1 syr 11/28/19 16:45 12/02/19 05:47 Saline Flush IVF 1 syr PRN PRN Administration To flush IV Tamsulosin HCl 0.8 mg 11/28/19 21:00 12/01/19 20:15 Flomax PO 0.8 mg BEDTIME MANDIE Administration Discontinued Medications Generic Name Dose Route Start Last Admin Trade Name Freq PRN Reason Stop Dose Admin Furosemide 80 mg 11/28/19 16:45 11/28/19 19:21 Lasix IVP 11/28/19 16:46 80 mg ONCE STA Administration Gabapentin 300 mg 11/28/19 21:00 11/28/19 20:58 Neurontin PO 300 mg TID MANDIE Administration Sodium Chloride 500 mls @ 500 mls/hr 11/28/19 16:45 11/28/19 19:17 Sodium Chloride IV 11/28/19 17:44 500 mls/hr BOLUS STA Administration CEFTRIAXONE/D5W 1 GM PREMIX 1 gm in 50 mls @ 75 mls/hr 11/28/19 17:45 11/28/19 19:16 Rocephin 1 Gm/50 Ml D5w IV 11/28/19 18:24 75 mls/hr ONCE STA Administration Sodium Chloride 1,000 mls @ 75 mls/hr 11/28/19 19:30 11/29/19 09:47 Sodium Chloride IV Not Given .[id number] MANDIE CEFTRIAXONE/D5W 1 GM PREMIX 1 gm in 50 mls @ 75 mls/hr 11/29/19 09:00 Rocephin 1 Gm/50 Ml D5w IV 12/02/19 08:59 DAILY MANDIE CEFTRIAXONE/D5W 1 GM PREMIX 1 gm in 50 mls @ 75 mls/hr 11/29/19 10:00 Rocephin 1 Gm/50 Ml D5w IV 12/02/19 09:59 BEDTIME MANDIE CEFTRIAXONE/D5W 1 GM PREMIX 1 gm in 50 mls @ 75 mls/hr 11/29/19 10:00 11/30/19 08:51 Rocephin 1 Gm/50 Ml D5w IV 12/02/19 09:59 75 mls/hr DAILY MANDIE Administration Assessment (1) Spondylosis of lumbar region without myelopathy or radiculopathy: Status: Inactive Code(s): M47.816 - Spondylosis without myelopathy or radiculopathy, lumbar region SNOMED Code(s): 555136668 (2) Rhabdomyolysis: Status: Acute Code(s): M62.82 - Rhabdomyolysis SNOMED Code(s): 334316774 Qualifiers: Rhabdomyolysis type: traumatic Encounter type: initial encounter Qualified Code(s): T79.6XXA - Traumatic ischemia of muscle, initial encounter Plan Plan: gentle iv hydration---follow ck----monitor renal function---physical therapy---see orders
--- NOTE | 2019-12-02 06:22 | PCM.PROG ---
Date Seen by Provider: 11/29/19 Time Seen by Provider: 06:20 Subjective: feeling better---still noting leg weakness Objective: Vitals: T=97.9 F, P=73, R=18, WU=493/86, SPO2=96 HEENT: [perrls] Neck: [supple] Lungs: [clear] CVS: [irrr] Abdomen: [soft nt] Extremities: [no defomity] Neurological: [intact reflexes] Skin: [no rashes] Lab/Tests/Diagnostic Imaging: [labs reviewed] (1) Spondylosis of lumbar region without myelopathy or radiculopathy: Status: Inactive Code(s): M47.816 - Spondylosis without myelopathy or radiculopathy, lumbar region SNOMED Code(s): 912598431 (2) Rhabdomyolysis: Status: Acute Code(s): M62.82 - Rhabdomyolysis SNOMED Code(s): 794521385 Plan: labs inrpoved---oob therapy---see orders
--- NOTE | 2019-12-02 06:25 | PCM.PROG ---
Date Seen by Provider: 11/30/19 Time Seen by Provider: 15:33 Subjective: feeling better but nursing staff noting requring two for assistance in ambulation and up therapy Objective: Vitals: T=97.9 F, P=73, R=18, NS=255/86, SPO2=96 HEENT: [perrl] Neck: [supple] Lungs: clear[] CVS: [irrr] Abdomen: [soft nt] Extremities: no deformity[] Neurological: [noted lower extremity weakness] Skin: [no rashes] Lab/Tests/Diagnostic Imaging: [] (1) Spondylosis of lumbar region without myelopathy or radiculopathy: Status: Inactive Code(s): M47.816 - Spondylosis without myelopathy or radiculopathy, lumbar region SNOMED Code(s): 153588496 (2) Rhabdomyolysis: Status: Acute Code(s): M62.82 - Rhabdomyolysis SNOMED Code(s): 793928059 Plan: nursing staff feel he would benefit from physical therapy---will consult them
--- NOTE | 2019-12-02 06:27 | PCM.PROG ---
Date Seen by Provider: 12/01/19 Time Seen by Provider: 18:15 Subjective: son feels he is iimrpvoing with therapy--ambulating but stil requiring assistance Objective: Vitals: T=97.9 F, P=73, R=18, CH=861/86, SPO2=96 HEENT: perrl[] Neck: [supple] Lungs: [clear] CVS: [irr] Abdomen: [soft nt] Extremities: [no defomity] Neurological: [lower ext weakness but improved] Skin: [] Lab/Tests/Diagnostic Imaging: [] (1) Spondylosis of lumbar region without myelopathy or radiculopathy: Status: Inactive Code(s): M47.816 - Spondylosis without myelopathy or radiculopathy, lumbar region SNOMED Code(s): 443412589 (2) Rhabdomyolysis: Status: Acute Code(s): M62.82 - Rhabdomyolysis SNOMED Code(s): 948893240 Plan: will move forward with rehab placement tomorrow
--- NOTE | 2019-12-02 06:28 | PCM.PROG ---
no new nursing staff concerns---move toward [facility] today for rehab
--- NOTE | 2019-12-02 06:31 | PCM.DC ---
Final Diagnosis: rhabdomyolysis, recent fall (1) Spondylosis of lumbar region without myelopathy or radiculopathy: Status: Inactive Code(s): M47.816 - Spondylosis without myelopathy or radiculopathy, lumbar region SNOMED Code(s): 379799059 (2) Rhabdomyolysis: Status: Acute Code(s): M62.82 - Rhabdomyolysis SNOMED Code(s): 166927945 Qualifiers: Rhabdomyolysis type: traumatic Encounter type: initial encounter Qualified Code(s): T79.6XXA - Traumatic ischemia of muscle, initial encounter (3) Gait abnormality: Status: Inactive Code(s): R26.9 - Unspecified abnormalities of gait and mobility SNOMED Code(s): 47311545 (4) History of recent fall: Status: Inactive Code(s): Z91.81 - History of falling SNOMED Code(s): 234551535 Medications at Discharge: Ambulatory Orders Medication Instructions Recorded albuterol sulfate [ProAir HFA] 90 mcg INHALATION Q4-6H PRN 11/28/19 amlodipine [Norvasc] 5 mg PO DAILY 11/28/19 apixaban [Eliquis] 5 mg PO BID 11/28/19 atorvastatin 80 mg PO BEDTIME 11/28/19 calcitriol [Rocaltrol] 0.5 mcg PO DAILY 11/28/19 clonidine HCl 0.1 mg PO BEDTIME 11/28/19 duloxetine [Cymbalta] 60 mg PO DAILY 11/28/19 ergocalciferol (vitamin D2) 50,000 unit PO WEEKLY 11/28/19 febuxostat [Uloric] 40 mg PO DAILY 11/28/19 finasteride [Proscar] 5 mg PO DAILY 11/28/19 furosemide [Lasix] 40 mg PO DAILY 11/28/19 gabapentin 300 mg PO DAILY 11/28/19 gabapentin [Neurontin] 600 mg PO BEDTIME 11/28/19 linagliptin [Tradjenta] 5 mg PO DAILY 11/28/19 losartan 50 mg PO DAILY 11/28/19 magnesium oxide [MagOx] 400 mg PO DAILY 11/28/19 memantine [Namenda] 5 mg PO BID 11/28/19 mirabegron [Myrbetriq] 50 mg PO DAILY 11/28/19 mometasone [Asmanex Twisthaler] 1 inh INHALATION Q12H PRN 11/28/19 pantoprazole [Protonix] 40 mg PO DAILY 11/28/19 tamsulosin [Flomax] 0.8 mg PO BEDTIME 11/28/19 Saccharomyces boulardii [Florastor] 250 mg PO BID 11/29/19
[2019-12-02] MEDS: ULORIC PO SCH (08:46)
[2019-12-02] MEDS: FLORASTOR PO SCH (08:46)
[2019-12-02] MEDS: MYRBETRIQ PO SCH (08:46)
[2019-12-02] MEDS: PROSCAR PO SCH (08:46)
[2019-12-02] MEDS: NAMENDA PO SCH (08:46)
[2019-12-02] MEDS: NORVASC PO SCH (08:48)
[2019-12-02] MEDS: COZAAR PO SCH (08:48)
[2019-12-02] MEDS: CYMBALTA PO SCH (08:48)
[2019-12-02] MEDS: NEURONTIN PO SCH (08:48)
[2019-12-02] MEDS: LASIX TAB PO SCH (08:48)
[2019-12-02] MEDS: ELIQUIS PO SCH (08:57)
[2019-12-02] MEDS: CALCITRIOL 0.5 MCG PO SCH (09:00)
[2019-12-02 10:27] VITALS: BP 116/66; TEMP 98
[2019-12-05] MEDS ORDERED: DRISDOL PO SCH (09:00)
--- NOTE | 2020-01-14 10:00 | SSS ---
DISCUSSION: This is an 79 year old gentleman who had been experienced increased weakness and multiple falls. He was seen in the emergency department by Dr. Olivares. CT of the head was negative. He is found to have some elevation of CK consistent with Rhabdomyolysis and therefore was admitted to my services for IV fluids and treatment of such. PAST MEDICAL HISTORY: MEDICATIONS: [place] Norvasc Eliquis Lipitor Catapres Cymbalta Rocaltrol Uloric Proscar Lasix Neurontin Cozaar Namenda Myrbetriq Asmanex Protonix Florastor Flomax ALLERGIES: No known allergies PAST MEDICAL HISTORY: Atrial fibrillation Previous stroke COPD History of bladder cancer History of bilateral cataracts Diabetes Hypertension History of neuropathy History of chronic back pain secondary to spinal stenosis SOCIAL HISTORY: [facility] and does not use alcohol or is not a smoker. FAMILY HISTORY: Reviewed and thought not to be pertinent to discussion. REVIEW OF SYSTEMS: No headaches, visual changes, tinnitus, chest pain, shortness of breath, hemoptysis, abdominal pain, blood in the stool, urinary symptoms or seizures. Global weakness. PHYSICAL EXAMINATION: VITAL SIGNS: Temperature 98.6, pulse 73, respirations 20 and blood pressure 19/75. GENERAL: 79 year old gentleman appears his states age. He is feeble. He is alert. HEENT: Pupils are round. NECK: Supple. CHEST: Clear. CARDIOVASCULAR: Regular rate and rhythm. ABDOMEN: Soft, nontender. EXTREMITIES: Distal extremities without cyanosis or edema. CLINICAL COURSE: He was admitted and given IV fluids. He was seen by physical therapy. His muscle weakness seemed improved. His CK values improved. At this point the patient after discussion with the son we decided to transfer him to the custodial for further rehabilitation. Please see orders. MTDD
== END 2019-12-02 13:18 ==
LOC: ED 16:08 → MEDSURG B 16:08
PROVIDERS: ADMIT Family Medicine; ATTEND Family Medicine
DX: R06.02 Shortness of breath; M54.5 Low back pain; M62.82 Rhabdomyolysis; R53.1 Weakness

== ENCOUNTER 2022-03-28 17:42 | Observation (INO) ==
[2022-03-28] MEDS ORDERED: ZOFRAN 4 MG/2 ML IVP ONE (18:34)
[2022-03-28] MEDS ORDERED: SODIUM CHLORIDE 1,000 ML IV STA (18:34)
--- NOTE | 2022-03-28 18:41 | ED.PDOC ---
General <NESTOR PONCE MD - Last Filed: 03/28/22 18:40> ED Provider: Dr. NESTOR PONCE MD Chief Complaint: Nausea/Vomiting Stated Complaint: mild to mod NV today no pain, no injury, no fever, assisted living pt w/ hx copd, cpap, htn, dm, speech fluent Time Seen by Provider: 03/28/22 17:58 Mode of Arrival: Ambulance Information Source: Patient Primary Care Provider: GABBY QURESHI Sepsis Protocol: For patient's 13 years and over: Temp is 96.8 and below OR 101 and greater Pulse >90 BPM Resp >20/minute Acutely Altered Mental Status Are patient's symptoms suggestive of a new infection, such as: -Pneumonia -Skin, Soft Tissue -Endocarditis -UTI -Bone, Joint Infection -Implantable Device -Acute Abdominal Infection -Wound Infection -Meningitis -Blood Stream Catheter Infection -Unknown <GABBY JJ MD - Last Filed: 03/28/22 19:39> Nursing and Triage Documentation Reviewed and Agree: Yes Does patient meet sepsis criteria?: No System Inflammatory Response Syndrome: Not Applicable Review of Systems <NESTOR PONCE MD - Last Filed: 03/28/22 18:40> Review Of Systems Constitutional: Denies Fever Eyes: Denies Vision change Ears, Nose, Mouth, Throat: Denies Throat pain Respiratory: Denies Cough, Short of air or Wheezing Cardiac: Denies Chest pain GI: Reports Nausea and Vomiting; Denies Abdominal pain : Denies Flank pain Musculoskeletal: Denies Back pain Skin: Denies Cyanosis Neurological: Denies Cognitive dysfunction All Other Systems: Other PFSH <NESTOR PONCE MD - Last Filed: 03/28/22 18:40> Medical History (Updated 03/28/22 @ 19:39 by GABBY JJ MD) Bilateral cataracts Cancer of bladder COPD (chronic obstructive pulmonary disease) CVA (cerebral vascular accident) Diabetes Hypertension Neuropathy TIA (transient ischemic attack) Family History (Updated 05/19/21 @ 19:56 by PETER DUMONT MD) Other Family history unknown Social History Smoking and tobacco status: Never smoker Substance use type: does not use Housing: assisted living facility History of recent travel: No Surgical History H/O parathyroidectomy History of carpal tunnel surgery Hx of partial nephrectomy Hx of partial nephrectomy Physical Exam <NESTOR PONCE MD - Last Filed: 03/28/22 18:40> Physical Exam Appearance: Reports Obese Ill-appearing: Not Applicable Pain Distress: Not Applicable Eyes: Reports OMAYRA, EOMI and Conjunctiva clear ENT: Reports Oropharynx normal Neck: Supple Respiratory: Reports Airway patent, Breath sounds clear and Breath sounds equal Cardiovascular: Reports RRR GI/: Reports Soft and Nontender Musculoskeletal: Denies Calf tenderness Skin: Denies Cyanotic Neurological: Reports Alert Psychiatric: Reports Affect appropriate <GABBY JJ MD - Last Filed: 03/28/22 19:39> Radiology Interpretation Radiology Interpretation By: Radiologist Radiology Results: Positive Exam Interpreted: CT Scan EKG Interpretation Time of EKG #1: 19:38 Rate: Normal Rhythm: Sinus Ectopy: None [place]: NL ST Segment: Normal Interpretation: nsr <GABBY JJ MD - Last Filed: 03/28/22 19:39> Critical Care Note Total Critical Care Time (mins): 0 Course <NESTOR PONCE MD - Last Filed: 03/28/22 18:40> Course Hematology/Chemistry: 03/28/22 19:00 03/28/22 19:00 Orders, Labs, Meds: Lab Review 03/28/22 03/28/22 03/28/22 18:54 19:00 19:00 WBC 12.16 H RBC 4.27 L Hgb 13.2 L Hct 39.4 L MCV 92.3 MCH 30.9 MCHC 33.5 RDW Coeff of Ysabel 13.5 Plt Count 253 Immature Gran % (Auto) 0.2 Neut % (Auto) 84.8 H Lymph % (Auto) 6.8 L [place] % (Auto) 7.6 Eos % (Auto) 0.4 Baso % (Auto) 0.2 Neut # (Auto) 10.3 H Lymph # (Auto) 0.8 [place] # (Auto) 0.9 Eos # (Auto) 0.1 Baso # (Auto) 0.0 Immature Gran # (Auto) 0.0 Sodium 139.6 Potassium 3.43 L Chloride 105.0 Carbon Dioxide 26.6 Anion Gap 11.43 BUN 31.9 H Creatinine 2.14 H Estimated GFR (MDRD) 30.00 BUN/Creatinine Ratio 14.90 Glucose 132.1 H Lactic Acid Calcium 9.76 Total Bilirubin 0.65 AST 29.8 ALT 18.5 Alkaline Phosphatase 172.2 H Total Creatine Kinase 317.3 H CK-MB (CK-2) Pending CK-MB (CK-2) % Pending Troponin I 0.023 Total Protein 7.51 Albumin 4.22 Globulin 3.29 Albumin/Globulin Ratio 1.28 Lipase 186.9 Influ A Molecular Assay Negative by naat Influ B Molecular Assay Negative by naat RSV Antigen Negative by naat 03/28/22 19:00 WBC RBC Hgb Hct MCV MCH MCHC RDW Coeff of Ysabel Plt Count Immature Gran % (Auto) Neut % (Auto) Lymph % (Auto) [place] % (Auto) Eos % (Auto) Baso % (Auto) Neut # (Auto) Lymph # (Auto) [place] # (Auto) Eos # (Auto) Baso # (Auto) Immature Gran # (Auto) Sodium Potassium Chloride Carbon Dioxide Anion Gap BUN Creatinine Estimated GFR (MDRD) BUN/Creatinine Ratio Glucose Lactic Acid 2.72 H Calcium Total Bilirubin AST ALT Alkaline Phosphatase Total Creatine Kinase CK-MB (CK-2) CK-MB (CK-2) % Troponin I Total Protein Albumin Globulin Albumin/Globulin Ratio Lipase Influ A Molecular Assay Influ B Molecular Assay RSV Antigen Orders Category Date Time Status EKG-(ED ONLY) Stat CARDIO 03/28/22 18:34 Ordered CBC W/ AUTO DIFF Stat LAB 03/28/22 19:00 Completed CMP [COMPREHENSIVE METABOLIC PANEL] Stat LAB 03/28/22 19:00 Results CPK [CREATINE KINASE] Stat LAB 03/28/22 19:00 Results LACTIC ACID Stat LAB 03/28/22 19:00 Completed LIPASE Stat LAB 03/28/22 19:00 Results MOLECULAR FLU A & B [FLU A/B MOLECULAR] Stat LAB 03/28/22 18:54 Completed RSV Stat LAB 03/28/22 18:54 Completed SARS COV-2 RNA RAPID KIEL Stat LAB 03/28/22 18:54 Received TROPONIN I Stat LAB 03/28/22 19:00 Results URINALYSIS C & S IF INDICATED Stat LAB 03/28/22 19:17 Uncollected Ondansetron HCl/Pf [Zofran 4 mg/2 ml] MEDS 03/28/22 18:34 Discontinued 4 mg IVP ONCE ONE Sodium Chloride 0.9% [Sodium Chloride] 1,000 ml MEDS 03/28/22 18:34 Discontinued IV BOLUS CHEST, 1V AP ONLY Stat RADS 03/28/22 18:[address] ABDOMEN/PELVIS WO CONTRAST Stat RADS 03/28/22 18:34 Completed Medications Discontinued Medications Generic Name Dose Route Start Last Admin Trade Name Chadq PRN Reason Stop Dose Admin Sodium Chloride 1,000 mls @ 1,000 mls/hr 03/28/22 18:34 03/28/22 19:20 Sodium Chloride IV 03/28/22 19:33 1,000 mls/hr BOLUS STA Administration Ondansetron HCl 4 mg 03/28/22 18:34 03/28/22 19:20 Ondansetron Hcl/Pf 4 Mg/2 Ml Sdv IVP 03/28/22 18:35 4 mg ONCE ONE Administration Vital Signs: Temp Pulse Resp BP Pulse Ox 03/28/22 17:59 98.5 F 118 H 20 166/86 H 93 L <GABBY JJ MD - Last Filed: 03/28/22 19:39> Course Orders, Labs, Meds: Lab Review 03/28/22 03/28/22 03/28/22 18:54 19:00 19:00 WBC 12.16 H RBC 4.27 L Hgb 13.2 L Hct 39.4 L MCV 92.3 MCH 30.9 MCHC 33.5 RDW Coeff of Ysabel 13.5 Plt Count 253 Immature Gran % (Auto) 0.2 Neut % (Auto) 84.8 H Lymph % (Auto) 6.8 L [place] % (Auto) 7.6 Eos % (Auto) 0.4 Baso % (Auto) 0.2 Neut # (Auto) 10.3 H Lymph # (Auto) 0.8 [place] # (Auto) 0.9 Eos # (Auto) 0.1 Baso # (Auto) 0.0 Immature Gran # (Auto) 0.0 Sodium 139.6 Potassium 3.43 L Chloride 105.0 Carbon Dioxide 26.6 Anion Gap 11.43 BUN 31.9 H Creatinine 2.14 H Estimated GFR (MDRD) 30.00 BUN/Creatinine Ratio 14.90 Glucose 132.1 H Lactic Acid Calcium 9.76 Total Bilirubin 0.65 AST 29.8 ALT 18.5 Alkaline Phosphatase 172.2 H Total Creatine Kinase 317.3 H CK-MB (CK-2) Pending CK-MB (CK-2) % Pending Troponin I 0.023 Total Protein 7.51 Albumin 4.22 Globulin 3.29 Albumin/Globulin Ratio 1.28 Lipase 186.9 Influ A Molecular Assay Negative by naat Influ B Molecular Assay Negative by naat RSV Antigen Negative by naat 03/28/22 19:00 WBC RBC Hgb Hct MCV MCH MCHC RDW Coeff of Ysabel Plt Count Immature Gran % (Auto) Neut % (Auto) Lymph % (Auto) [place] % (Auto) Eos % (Auto) Baso % (Auto) Neut # (Auto) Lymph # (Auto) [place] # (Auto) Eos # (Auto) Baso # (Auto) Immature Gran # (Auto) Sodium Potassium Chloride Carbon Dioxide Anion Gap BUN Creatinine Estimated GFR (MDRD) BUN/Creatinine Ratio Glucose Lactic Acid 2.72 H Calcium Total Bilirubin AST ALT Alkaline Phosphatase Total Creatine Kinase CK-MB (CK-2) CK-MB (CK-2) % Troponin I Total Protein Albumin Globulin Albumin/Globulin Ratio Lipase Influ A Molecular Assay Influ B Molecular Assay RSV Antigen Orders Category Date Time Status EKG-(ED ONLY) Stat CARDIO 03/28/22 18:34 Ordered CBC W/ AUTO DIFF Stat LAB 03/28/22 19:00 Completed CMP [COMPREHENSIVE METABOLIC PANEL] Stat LAB 03/28/22 19:00 Results CPK [CREATINE KINASE] Stat LAB 03/28/22 19:00 Results LACTIC ACID Stat LAB 03/28/22 19:00 Completed LIPASE Stat LAB 03/28/22 19:00 Results MOLECULAR FLU A & B [FLU A/B MOLECULAR] Stat LAB 03/28/22 18:54 Completed RSV Stat LAB 03/28/22 18:54 Completed SARS COV-2 RNA RAPID KIEL Stat LAB 03/28/22 18:54 Received TROPONIN I Stat LAB 03/28/22 19:00 Results URINALYSIS C & S IF INDICATED Stat LAB 03/28/22 19:17 Uncollected Ondansetron HCl/Pf [Zofran 4 mg/2 ml] MEDS 03/28/22 18:34 Discontinued 4 mg IVP ONCE ONE Sodium Chloride 0.9% [Sodium Chloride] 1,000 ml MEDS 03/28/22 18:34 Discontinued IV BOLUS CHEST, 1V AP ONLY Stat RADS 03/28/22 18:[address] ABDOMEN/PELVIS WO CONTRAST Stat RADS 03/28/22 18:34 Completed Medications Discontinued Medications Generic Name Dose Route Start Last Admin Trade Name Freq PRN Reason Stop Dose Admin Sodium Chloride 1,000 mls @ 1,000 mls/hr 03/28/22 18:34 03/28/22 19:20 Sodium Chloride IV 03/28/22 19:33 1,000 mls/hr BOLUS STA Administration Ondansetron HCl 4 mg 03/28/22 18:34 03/28/22 19:20 Ondansetron Hcl/Pf 4 Mg/2 Ml Sdv IVP 03/28/22 18:35 4 mg ONCE ONE Administration Vital Signs: Temp Pulse Resp BP Pulse Ox 03/28/22 17:59 98.5 F 118 H 20 166/86 H 93 L Discharge Plan Discharge Patient Disposition: ADMITTED INPATIENT Discharge Problem: Gastroenteritis, ERWIN (acute kidney injury) Prescriptions: No Action albuterol sulfate [ProAir HFA] 90 mcg/actuation Hfa Aerosol Inhaler 90 mcg INHALATION Q4-6H PRN (Reason: Shortness Of Breath Or Wheezing) Label Comments: per family do not believe he is taking memantine [Namenda] 5 mg Tablet 5 mg PO BID febuxostat [Uloric] 40 mg Tablet 40 mg PO DAILY furosemide [Lasix] 40 mg Tablet 40 mg PO DAILY atorvastatin 80 mg Tablet 80 mg PO BEDTIME clonidine HCl 0.1 mg Tablet 0.1 mg PO BEDTIME magnesium oxide [MagOx] 400 mg (241.3 mg magnesium) Tablet 400 mg PO DAILY Label Comments: per family , do not believe he is taking tamsulosin [Flomax] 0.4 mg Capsule 0.8 mg PO BEDTIME pantoprazole [Protonix] 40 mg Tablet,Delayed Release (Dr/Ec) 40 mg PO DAILY calcitriol [Rocaltrol] 0.5 mcg Capsule 0.5 mcg PO DAILY gabapentin 300 mg Capsule 300 mg PO DAILY ergocalciferol (vitamin D2) 50,000 unit Capsule 50,000 unit PO WEEKLY finasteride [Proscar] 5 mg Tablet 5 mg PO DAILY duloxetine [Cymbalta] 60 mg Capsule,Delayed Release(Dr/Ec) 60 mg PO DAILY Asmanex Twisthaler 220 mcg/ actuation (60) Aerosol Powdr Breath Activated 1 inh INHALATION Q12H PRN (Reason: Shortness Of Breath) Label Comments: daughter states patient is no longer using this medicaiton Myrbetriq 50 mg Tablet Extended Release 24 Hr 50 mg PO DAILY Eliquis 5 mg Tablet 5 mg PO BID losartan 50 mg Tablet 50 mg PO DAILY gabapentin [Neurontin] 600 mg Tablet 600 mg PO BEDTIME amlodipine [Norvasc] 5 mg Tablet 5 mg PO DAILY Saccharomyces boulardii [Florastor] 250 mg Capsule 250 mg PO BID cephalexin 500 mg capsule 500 mg PO TID Qty: 21 0RF Januvia 25 mg Tablet 25 mg PO DAILY cephalexin 500 mg capsule 500 mg PO Q8H Qty: 21 0RF 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
[2022-03-28 19:10] LABS: BASOPHILS % (AUTO) 0.2 % (0.0-3.0); EOSINOPHILS # (AUTO) 0.1 K/ul (0.0-0.7); EOSINOPHILS % (AUTO) 0.4 % (0.0-7.0); HEMATOCRIT 39.4 % (42.0-52.0); HEMOGLOBIN 13.2 g/dl (14.0-18.0); IMMATURE GRANULOCYTE % (AUTO) 0.2 % (0.0-5.0); LYMPHOCYTES # (AUTO) 0.8 K/uL (0.60-3.4); LYMPHOCYTES % (AUTO) 6.8 (10.0-50.0); MEAN CORPUSCULAR HEMOGLOBIN 30.9 pg (27.0-31.0); MEAN CORPUSCULAR HGB CONC 33.5 (31.8-35.4); MEAN CORPUSCULAR VOLUME 92.3 fl (80.0-94.0); MONOCYTES # (AUTO) 0.9 K/uL (0.4-2.0); MONOCYTES % (AUTO) 7.6 (0-10); NEUTROPHILS # (AUTO) 10.3 K/ul (2.0-6.9); NEUTROPHILS % (AUTO) 84.8 % (42.2-75.2); PLATELET COUNT 253 10^3/uL (140-440); RDW COEFFICIENT OF VARIATION 13.5 % (11.6-14.8); RED BLOOD COUNT 4.27 10^6/ul (4.70-6.10); WHITE BLOOD COUNT 12.16 K/ul (4.2-10.2)
--- NOTE | 2022-03-28 19:18 | CT ---
EXAM: CT abdomen pelvis without contrast HISTORY: Nausea COMPARISON: 05/16/2018 TECHNIQUE: Serial axial images of the abdomen pelvis were performed from the lung bases through the inferior pelvis without contrast. These were viewed in multiple planes. FINDINGS: The heart is enlarged. Small pericardial effusion. Consolidation in the lower lungs, left greater than right. Gallstones. No acute process involving the liver, pancreas or spleen. Multiple right renal cysts. 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 There is a nodular structure in the left suprarenal region, possibly the adrenal gland. The right adrenal gland is unre markable. Diverticulosis. No CT findings of acute diverticulitis. No dilated loops of small bowel. There is mild stranding in the mesenteric fat and prominent mesenteric lymph nodes. The appendix is normal. Enlarged, heterogeneous prostate gland. IMPRESSION: No acute CT findings in the abdomen or pelvis. Nonspecific hazy appearance to the mesenteric fat. Clinical surveillance with follow up imaging as w arranted. Consolidation in the lower lungs, left greater than right, concerning for pneumonia. Please see above description and additional findings. All CT scans are performed using dose optimization techniques as appropriate to the performed exam an d include at least one of the following: Automated exposure control, adjustment of the mA and/or kV according t o size, and the use of iterative reconstruction technique.
[2022-03-28 19:24] LABS: ALANINE AMINOTRANSFERASE 18.5 U/L (0-50); ALBUMIN 4.22 g/dL (3.5-5.0); ALKALINE PHOSPHATASE 172.2 U/L (56-119); ASPARTATE AMINO TRANSFERASE 29.8 U/L (17-59); BILIRUBIN,TOTAL 0.65 mg/dL (0.2-1.3); BLOOD UREA NITROGEN 31.9 mg/dL (9-20); CALCIUM 9.76 mg/dL (8.4-10.2); CARBON DIOXIDE 26.6 mmol/L (22-30.0); CREATINE KINASE 317.3 U/L (55-170); CREATININE 2.14 mg/dL (0.60-1.10); GLUCOSE 132.1 mg/dL (74-106); LIPASE 186.9 U/L (23-300); POTASSIUM 3.43 mmol/L (3.5-5.1); SODIUM 139.6 mmol/L (134.5-145); TOTAL PROTEIN 7.51 g/dL (6.3-8.2)
[2022-03-28 19:25] LABS: MOLECULAR FLU A NEGATIVE BY NAAT (NEGATIVE); MOLECULAR FLU B NEGATIVE BY NAAT (NEGATIVE); RSV MOLECULAR NEGATIVE BY NAAT (NEGATIVE)
--- NOTE | 2022-03-28 19:26 | DI ---
EXAM: CHEST RADIOGRAPH TECHNIQUE: Single frontal chest radiograph. HISTORY: Nausea. COMPARISON: 02/08/2022. FINDINGS: Mild left basilar atelectasis. Otherwise clear lungs. The heart size is normal. Left chest wall cardiac loop recorder. No pleural effusion or pneumothorax. Surgical clips in the neck. Small round metal foreign body measuring 3 mm overlying the right upper chest, unchanged. IMPRESSION: 1. Mild left basilar atelectasis. 2. No significant change from the 02/08/2022 chest radiograph.
[2022-03-28 19:35] LABS: TROPONIN I 0.023 ng/ml (0.0000-0.120)
[2022-03-28 19:39] LABS: CREATINE KINASE MB 2.7 ng/ml (0.0-2.38)
[2022-03-28 19:41] LABS: SARS COV-2 RNA RAPID NAAT NEGATIVE (NEGATIVE)
[2022-03-28] MEDS ORDERED: ZOFRAN 4 MG/2 ML IVP PRN (19:41)
--- NOTE | 2022-03-28 20:05 | PCM ---
Chief Complaint Chief Complaint: ariella been vomiting and having diarrhea History of Present Illness History of Present Illness: This is an 81 yr old resident of assisted living with hx of cva, afib and dm type 2 who prsented to the ed with several episodes of vomiting, nonbloody diarrhea and evidence of volume depletion with erwin on lab evidences. The patinet is admitted for iv hydration and recheck of labs. Review of Systems Constitutional: Reports Fatigue Eyes: Reports No symptoms Ears: Reports No symptoms Nose: Reports No symptoms Throat: Reports No symptoms Mouth: Reports No symptoms Respiratory: Reports No symptoms Cardiovascular: Reports No symptoms Gastrointestinal: Reports Nausea, Vomiting and Diarrhea Genitourinary: Reports No symptoms Neurological: Reports No symptoms Musculoskeletal: Reports No symptoms Skin: Reports No symptoms Immunology: Reports No symptoms Hematology: Reports No symptoms Endocrine: Reports No symptoms Psychiatric: Reports No symptoms Habits: Denies Tobacco use, Substance use, Alcohol use or Other Allergies Allergies Allergy/AdvReac Type Severity Reaction Status Date / Time No Known Allergies Allergy Verified 03/28/22 20:01 [facility] Medical History Bilateral cataracts Cancer of bladder COPD (chronic obstructive pulmonary disease) CVA (cerebral vascular accident) Diabetes Hypertension Neuropathy TIA (transient ischemic attack) Surgical History H/O parathyroidectomy History of carpal tunnel surgery Hx of partial nephrectomy Hx of partial nephrectomy Family History Other Family history unknown Social History Smoking and tobacco status: Never smoker Substance use type: does not use Housing: assisted living facility History of recent travel: No Medications Medications: Medications Generic Name Dose Route Start Last Admin Trade Name Freq PRN Reason Stop Dose Admin Potassium Chloride/Sodium Chloride 1,000 mls @ 75 mls/hr 03/28/22 20:00 Sodium Chloride 0.9%-Kcl 20 Meq IV .[id number] [facility] Insulin Human Regular 0 unit 03/28/22 19:46 Insulin Regular, Human 100 Unit/Ml (3ml) Vial SUBCUT PRN PRN Hyperglycemia Protocol Ondansetron HCl 4 mg 03/28/22 19:41 Ondansetron Hcl/Pf 4 Mg/2 Ml Sdv IVP Q4HR PRN Nausea / Vomiting Body Composition Height: 5 ft 10 in Weight: 330 lb Body Mass Index (BMI): 47.3 Vital Signs Temperature: 98.5 F Pulse Rate: 118 Respiratory Rate: 20 Blood Pressure: 166/86 O2 Sat by Pulse Oximetry: 93 Physical Examination Appearance: Reports Ill-appearing and Obese Ill-appearing: Mild Pain Distress: None Eyes: Reports OMAYRA, EOMI and Conjunctiva clear ENT: Reports Ears normal, Nose normal and Oropharynx normal Neck: Supple Respiratory: Reports Airway patent, Breath sounds clear and Breath sounds equal Cardiovascular: Reports RRR, Pulses normal, No rub and No murmur GI/: Reports Soft, Nontender, No masses and Bowel sounds normal Musculoskeletal: Reports Normal strength, ROM intact, No edema and No calf tenderness Skin: Reports Warm, Dry and Normal color Neurological: Reports Sensation intact, Motor intact, Reflexes intact, Cranial nerves intact and Focal Deficit Psychiatric: Reports Affect appropriate and Mood appropriate Lab/Tests/Diagnostic Imaging Lab/Tests/Diagnostic Imaging: Lab Review 03/28/22 03/28/22 03/28/22 18:54 18:54 19:00 WBC 12.16 H RBC 4.27 L Hgb 13.2 L Hct 39.4 L MCV 92.3 MCH 30.9 MCHC 33.5 RDW Coeff of [place]sabel 13.5 Plt Count 253 Immature Gran % (Auto) 0.2 Neut % (Auto) 84.8 H Lymph % (Auto) 6.8 L [place] % (Auto) 7.6 Eos % (Auto) 0.4 Baso % (Auto) 0.2 Neut # (Auto) 10.3 H Lymph # (Auto) 0.8 [place] # (Auto) 0.9 Eos # (Auto) 0.1 Baso # (Auto) 0.0 Immature Gran # (Auto) 0.0 Sodium Potassium Chloride Carbon Dioxide Anion Gap BUN Creatinine Estimated GFR (MDRD) BUN/Creatinine Ratio Glucose Lactic Acid Calcium Total Bilirubin AST ALT Alkaline Phosphatase Total Creatine Kinase CK-MB (CK-2) CK-MB (CK-2) % Troponin I Total Protein Albumin Globulin Albumin/Globulin Ratio Lipase Influ A Molecular Assay Negative by naat Influ B Molecular Assay Negative by naat RSV Antigen Negative by naat SARS CoV-2 RNA Rapid KIEL Negative 03/28/22 03/28/22 19:00 19:00 WBC RBC Hgb Hct MCV MCH MCHC RDW Coeff of [place] Plt Count Immature Gran % (Auto) Neut % (Auto) Lymph % (Auto) [place] % (Auto) Eos % (Auto) Baso % (Auto) Neut # (Auto) Lymph # (Auto) [place] # (Auto) Eos # (Auto) Baso # (Auto) Immature Gran # (Auto) Sodium 139.6 Potassium 3.43 L Chloride 105.0 Carbon Dioxide 26.6 Anion Gap 11.43 BUN 31.9 H Creatinine 2.14 H Estimated GFR (MDRD) 30.00 BUN/Creatinine Ratio 14.90 Glucose 132.1 H Lactic Acid 2.72 H Calcium 9.76 Total Bilirubin 0.65 AST 29.8 ALT 18.5 Alkaline Phosphatase 172.2 H Total Creatine Kinase 317.3 H CK-MB (CK-2) 2.700 H CK-MB (CK-2) % 0.8500 Troponin I 0.023 Total Protein 7.51 Albumin 4.22 Globulin 3.29 Albumin/Globulin Ratio 1.28 Lipase 186.9 Influ A Molecular Assay Influ B Molecular Assay RSV Antigen SARS CoV-2 RNA Rapid KIEL Orders Category Date Time Status ADMIT PATIENT INPATIENT .TO [facility] (MONITORED BED) ADMISSION 03/28/22 19:[address] [facility] 03/28/22 19:41 Active ) EKG-(ED ONLY) Stat CARDIO 03/28/22 18:34 Ordered ACTIVITY .BR with BRP CARE 03/28/22 19:41 Active BLOOD GLUCOSE MONITORING (MED/SURG) 0630,1100,1700,2100 CARE 03/28/22 19:43 Active GIVE HS SNACK 2100 CARE 03/28/22 19:42 Active INTAKE & OUTPUT Q8HR CARE 03/28/22 19:41 Active IP: INSERT SALINE LOCK ONCE CARE 03/28/22 19:41 Active TELEMETRY MONITORING TELE CARE 03/28/22 19:39 Active TELEMETRY MONITORING TELE CARE 03/28/22 19:41 Active VITAL SIGNS Q8HR CARE 03/28/22 19:41 Active CLEAR LIQUID DIET DIETARY 03/28/22 Breakfast Ordered HS SNACK DIETARY 03/28/22 Dinner Ordered CBC W/ AUTO DIFF DAILY@0600 LAB 03/29/22 06:00 Ordered CBC W/ AUTO DIFF Stat LAB 03/28/22 19:00 Completed CMP [COMPREHENSIVE METABOLIC PANEL] Stat LAB 03/28/22 19:00 Completed COMPREHENSIVE METABOLIC PANEL DAILY@0600 LAB 03/29/22 06:00 Ordered COMPREHENSIVE METABOLIC PANEL DAILY@0600 LAB 03/30/22 06:00 Ordered CPK [CREATINE KINASE] Stat LAB 03/28/22 19:00 Completed LACTIC ACID Stat LAB 03/28/22 19:00 Completed LIPASE Stat LAB 03/28/22 19:00 Completed MOLECULAR FLU A & B [FLU A/B MOLECULAR] Stat LAB 03/28/22 18:54 Completed RSV Stat LAB 03/28/22 18:54 Completed SARS COV-2 RNA RAPID KIEL Stat LAB 03/28/22 18:54 Completed TROPONIN I Stat LAB 03/28/22 19:00 Completed URINALYSIS C & S IF INDICATED Stat LAB 03/28/22 19:17 Uncollected Insulin Regular, Human [Humulin R] MEDS 03/28/22 19:46 Ordered See Protocol SUBCUT PRN PRN Ondansetron HCl/Pf [Zofran 4 mg/2 ml] MEDS 03/28/22 18:34 Discontinued 4 mg IVP ONCE ONE Ondansetron HCl/Pf [Zofran 4 mg/2 ml] MEDS 03/28/22 19:41 Ordered 4 mg IVP Q4HR PRN Potassium Chloride in 0.9%NaCl [Sodium Chloride 0.9%- MEDS 03/28/22 20:00 Active KCl 20 Meq] 1,000 ml IV 75 mls/hr Sodium Chloride 0.9% [Sodium Chloride] 1,000 ml MEDS 03/28/22 18:34 Discontinued IV BOLUS RESUSCITATION STATUS Routine OTHERS 03/28/22 19:41 Ordered CHEST, 1V AP ONLY Stat RADS 03/28/22 18:[address] ABDOMEN/PELVIS WO CONTRAST Stat RADS 03/28/22 18:34 Completed Medications Generic Name Dose Route Start Last Admin Trade Name Freq PRN Reason Stop Dose Admin Potassium Chloride/Sodium Chloride 1,000 mls @ 75 mls/hr 03/28/22 20:00 Sodium Chloride 0.9%-Kcl 20 Meq IV .[id number] [facility] Insulin Human Regular 0 unit 03/28/22 19:46 Insulin Regular, Human 100 Unit/Ml (3ml) Vial SUBCUT PRN PRN Hyperglycemia Protocol Ondansetron HCl 4 mg 03/28/22 19:41 Ondansetron Hcl/Pf 4 Mg/2 Ml Sdv IVP Q4HR PRN Nausea / Vomiting Discontinued Medications Generic Name Dose Route Start Last Admin Trade Name Chadq PRN Reason Stop Dose Admin Sodium Chloride 1,000 mls @ 1,000 mls/hr 03/28/22 18:34 03/28/22 19:20 Sodium Chloride IV 03/28/22 19:33 1,000 mls/hr BOLUS STA Administration Ondansetron HCl 4 mg 03/28/22 18:34 03/28/22 19:20 Ondansetron Hcl/Pf 4 Mg/2 Ml Sdv IVP 03/28/22 18:35 4 mg ONCE ONE Administration Assessment (1) Gastroenteritis: Status: Acute Code(s): K52.9 - Noninfective gastroenteritis and colitis, unspecified SNOMED Code(s): 63190386 (2) ERWIN (acute kidney injury): Status: Acute Code(s): N17.9 - Acute kidney failure, unspecified SNOMED Code(s): 03468650 Assessment: ct abd does not reveal obstruction but also describes bibasilar infiltrates--mr bennett does not have rales on lung exam , cough or exhibit a fever so i feel this is atelectasis rather than a true pneumonia at this time. Plan Plan: will hydrate, check labs in am--slowly advance diet, monitor fsbs aND RESTART HOME MEDS---ADMIT TO HOSPITALIST SERVICE
[2022-03-28 22:08] VITALS: BMI 40.2
[2022-03-28] MEDS: ELIQUIS PO SCH (22:17)
[2022-03-28] MEDS: NEURONTIN PO SCH (22:17)
[2022-03-28] MEDS: LIPITOR PO SCH (22:17)
[2022-03-28] MEDS: NAMENDA PO SCH (22:18)
[2022-03-28] MEDS: FLOMAX PO SCH (22:19)
[2022-03-28] MEDS: CATAPRES PO SCH (22:19)
[2022-03-28] MEDS: SODIUM CHLORIDE 0.9%-KCL 20 MEQ 1,000 ML IV SCH (22:19)
[2022-03-29 05:40] LABS: BASOPHILS % (AUTO) 0.2 % (0.0-3.0); EOSINOPHILS % (AUTO) 0.4 % (0.0-7.0); HEMATOCRIT 33.5 % (42.0-52.0); HEMOGLOBIN 10.8 g/dl (14.0-18.0); IMMATURE GRANULOCYTE % (AUTO) 0.4 % (0.0-5.0); LYMPHOCYTES # (AUTO) 1.2 K/uL (0.60-3.4); LYMPHOCYTES % (AUTO) 13.2 (10.0-50.0); MEAN CORPUSCULAR HEMOGLOBIN 30.6 pg (27.0-31.0); MEAN CORPUSCULAR HGB CONC 32.2 (31.8-35.4); MEAN CORPUSCULAR VOLUME 94.9 fl (80.0-94.0); MONOCYTES # (AUTO) 1.1 K/uL (0.4-2.0); MONOCYTES % (AUTO) 12.3 (0-10); NEUTROPHILS # (AUTO) 6.7 K/ul (2.0-6.9); NEUTROPHILS % (AUTO) 73.5 % (42.2-75.2); PLATELET COUNT 202 10^3/uL (140-440); RDW COEFFICIENT OF VARIATION 13.8 % (11.6-14.8); RED BLOOD COUNT 3.53 10^6/ul (4.70-6.10); WHITE BLOOD COUNT 9.07 K/ul (4.2-10.2)
[2022-03-29 06:00] LABS: ALANINE AMINOTRANSFERASE 14.2 U/L (0-50); ALBUMIN 3.22 g/dL (3.5-5.0); ALKALINE PHOSPHATASE 125.6 U/L (56-119); ASPARTATE AMINO TRANSFERASE 23.3 U/L (17-59); BILIRUBIN,TOTAL 0.63 mg/dL (0.2-1.3); BLOOD UREA NITROGEN 33.7 mg/dL (9-20); CALCIUM 8.64 mg/dL (8.4-10.2); CARBON DIOXIDE 25.6 mmol/L (22-30.0); CHLORIDE 107.9 mmol/L (98-107); CREATININE 2.2 mg/dL (0.60-1.10); GLUCOSE 117.8 mg/dL (74-106); POTASSIUM 3.78 mmol/L (3.5-5.1); SODIUM 138.7 mmol/L (134.5-145); TOTAL PROTEIN 5.89 g/dL (6.3-8.2)
[2022-03-29] MEDS: PROSCAR PO SCH (08:41)
[2022-03-29] MEDS: NAMENDA PO SCH ×2 (08:41→20:38)
[2022-03-29] MEDS: CYMBALTA PO SCH (08:41)
[2022-03-29] MEDS: ULORIC PO SCH (08:42)
[2022-03-29] MEDS: METAMUCIL PO SCH (08:42)
[2022-03-29] MEDS: ELIQUIS PO SCH ×2 (08:44→20:37)
[2022-03-29] MEDS ORDERED: PROTONIX PO SCH (09:00)
[2022-03-29] MEDS ORDERED: SODIUM CHLORIDE 0.9%-KCL 20 MEQ 1,000 ML IV SCH (09:44)
--- NOTE | 2022-03-29 10:35 | PCM.PROG ---
Date Seen by Provider: 03/29/22 Time Seen by Provider: 09:35 Subjective: Patient feeling better. Oral intake remains poor. No further emesis or diarrhea. Objective: Vitals: T=97.4 F, P=79, R=18, QR=842/65, SPO2=93 Alert and in NAD. Appears weak. HEENT: [] Oral mucosa somewhat dry. Neck: [] Lungs: [] Clear. BS equal. CVS: [] RRR. Abdomen: [] Soft, nontender. Extremities: [] Neurological: [] Somewhat forgetful. Skin: [] Lab/Tests/Diagnostic Imaging: [] (1) Gastroenteritis: Status: Acute Code(s): K52.9 - Noninfective gastroenteritis and colitis, unspecified SNOMED Code(s): 33144167 Assessment: Improving. (2) ERWIN (acute kidney injury): Status: Acute Code(s): N17.9 - Acute kidney failure, unspecified SNOMED Code(s): 18835530 Assessment: Still dehydrated. Plan: Will fluid bolus. Encourage PO intake and advance diet as tolerated. Increase activity.
[2022-03-29] MEDS: ROCEPHIN 1 GM/50 ML D5W 1 GM/50 ML BAG IV SCH (10:41)
[2022-03-29] MEDS: SODIUM CHLORIDE 0.9%-KCL 20 MEQ 1,000 ML IV SCH (10:49)
[2022-03-29] MEDS ORDERED: SODIUM CHLORIDE 1,000 ML IV SCH (11:00)
[2022-03-29] MEDS: HUMULIN R SUBCUT PRN ×2 (11:26→20:58)
[2022-03-29 12:58] LABS: BILIRUBIN,URINE Negative (NEGATIVE); CLARITY,URINE Clear (CLEAR); COLOR,URINE Yellow (YELLOW); GLUCOSE, URINE (UA) Negative (NEGATIVE); KETONES,URINE Negative (NEGATIVE); LEUKOCYTE ESTERASE ,URINE 1+ (NEGATIVE); NITRITE,URINE Negative (NEGATIVE); PH,URINE 5.5 (5-9); PROTEIN,URINE 2+ (NEGATIVE); URINE, BLOOD Negative (NEGATIVE); UROBILINOGEN,URINE 0.2 (0.2)
[2022-03-29 13:04] LABS: BACTERIA,URINE TRACE (NOT PRESENT); SQUAMOUS EPITHELIAL CELL,UR 30-50 (0-5); URINE WBC, MICROSCOPIC 30-50 (0-2)
[2022-03-29] MEDS: FLOMAX PO SCH (20:37)
[2022-03-29] MEDS: NEURONTIN PO SCH (20:37)
[2022-03-29] MEDS: CATAPRES PO SCH (20:37)
[2022-03-29] MEDS: LIPITOR PO SCH (20:37)
[2022-03-30 05:06] LABS: BASOPHILS % (AUTO) 0.1 % (0.0-3.0); EOSINOPHILS # (AUTO) 0.3 K/ul (0.0-0.7); EOSINOPHILS % (AUTO) 3.1 % (0.0-7.0); HEMATOCRIT 33.6 % (42.0-52.0); HEMOGLOBIN 10.7 g/dl (14.0-18.0); IMMATURE GRANULOCYTE % (AUTO) 0.3 % (0.0-5.0); LYMPHOCYTES # (AUTO) 1.6 K/uL (0.60-3.4); MEAN CORPUSCULAR HEMOGLOBIN 30.2 pg (27.0-31.0); MEAN CORPUSCULAR HGB CONC 31.8 (31.8-35.4); MEAN CORPUSCULAR VOLUME 94.9 fl (80.0-94.0); MONOCYTES # (AUTO) 1.2 K/uL (0.4-2.0); MONOCYTES % (AUTO) 13.6 (0-10); NEUTROPHILS # (AUTO) 5.9 K/ul (2.0-6.9); NEUTROPHILS % (AUTO) 64.9 % (42.2-75.2); PLATELET COUNT 187 10^3/uL (140-440); RDW COEFFICIENT OF VARIATION 13.6 % (11.6-14.8); RED BLOOD COUNT 3.54 10^6/ul (4.70-6.10); WHITE BLOOD COUNT 9.02 K/ul (4.2-10.2)
[2022-03-30 05:18] LABS: ALANINE AMINOTRANSFERASE 13.3 U/L (0-50); ALBUMIN 3.19 g/dL (3.5-5.0); ALKALINE PHOSPHATASE 124.5 U/L (56-119); ASPARTATE AMINO TRANSFERASE 23.3 U/L (17-59); BILIRUBIN,TOTAL 0.46 mg/dL (0.2-1.3); BLOOD UREA NITROGEN 36.9 mg/dL (9-20); CALCIUM 8.67 mg/dL (8.4-10.2); CARBON DIOXIDE 25.2 mmol/L (22-30.0); CHLORIDE 106.3 mmol/L (98-107); CREATININE 2.09 mg/dL (0.60-1.10); GLUCOSE 106.5 mg/dL (74-106); POTASSIUM 3.74 mmol/L (3.5-5.1); SODIUM 136.6 mmol/L (134.5-145); TOTAL PROTEIN 5.97 g/dL (6.3-8.2)
[2022-03-30] MEDS ORDERED: PROTONIX PO SCH (06:30)
[2022-03-30] MEDS: METAMUCIL PO SCH (09:11)
[2022-03-30] MEDS: PROSCAR PO SCH (09:12)
[2022-03-30] MEDS: ELIQUIS PO SCH ×2 (09:12→21:13)
[2022-03-30] MEDS: ULORIC PO SCH (09:12)
[2022-03-30] MEDS: NAMENDA PO SCH ×2 (09:12→21:16)
[2022-03-30] MEDS: CYMBALTA PO SCH (09:12)
[2022-03-30] MEDS: ROCEPHIN 1 GM/50 ML D5W 1 GM/50 ML BAG IV SCH (10:54)
[2022-03-30] MEDS: SODIUM CHLORIDE 1,000 ML IV SCH ×2 (11:39→18:21)
--- NOTE | 2022-03-30 12:16 | DI ---
EXAM: Chest, single view HISTORY: Shortness of breath COMPARISON: 03/28/2022 FINDINGS / IMPRESSION: Cardiomediastinal contours appear stable. Patchy infiltrate at the left lung base may represent atelectasis and/or pneumonia. Left basilar infiltrates have improved since the p rior study. Resolution of interstitial opacities at the right lung base. Trace left pleural effusio n not excluded. No pneumothorax.
[2022-03-30] MEDS: HUMULIN R SUBCUT PRN (12:51)
--- NOTE | 2022-03-30 14:27 | PCM.PROG ---
Date Seen by Provider: 03/30/22 Time Seen by Provider: 14:24 Subjective: dx. renal insufficiency, uti, deconditioning Objective: Vitals: T=97.6 F, P=60, R=20, UP=340/71, SPO2=96 HEENT: []conjunctiva clear Neck: []suppple Lungs: [] clear CVS: []rrr Abdomen: []nondistended Extremities: []warm and dry Neurological: []alert Skin: []pink Lab/Tests/Diagnostic Imaging: [] wbc 9, dermatology nurse 2.09 (1) Gastroenteritis: Status: Acute Code(s): K52.9 - Noninfective gastroenteritis and colitis, unspecified SNOMED Code(s): 92220137 (2) ERWIN (acute kidney injury): Status: Acute Code(s): N17.9 - Acute kidney failure, unspecified SNOMED Code(s): 69944099 Plan: continue iv antibiotics, attempt d/c to assisted living tomorrow care to Dr Qureshi at 19:00
--- NOTE | 2022-03-30 16:28 | CT ---
EXAM: CT of the head without contrast. HISTORY: Altered mental status. Dizziness. COMPARISON: 05/19/2021 TECHNIQUE: Contiguous axial images at 5 mm intervals were obtained from the base of the skull to the vertex of the calvarium. No contrast was given. FINDINGS: Extra-axial spaces: The CSF contiaing spaces are diffusely enlarged consistent with atrophy.There ar e no extraaxial fluid collections. Hemorrhage: None Cerebral Parenchyma: There is a large area encephalomalacia in the left frontal lobe which is increas ed in comparison to the prior study. New area of hypodensity is seen in the left occipital lobe with dilatation of the adjacent occipital horn of the left lateral ventricle.. There are hypodensities i n the periventricular white matter and deep white matter. These findings are non-specific but can be seen with chronic ischemic changes from small vessel disease.Lee-white differentiation is normal. Cerebellum: Mild atrophic changes.. Masses/Mass effect: None. There is no midline shift. Vasculature: Calcifications are seen in the carotid and vertebral arteries. Osseus Structures: Normal. Soft tissues/Sinuses: Normal. IMPRESSION: 1. Chronic age related changes. Left frontal ischemic infarct which appears more prominent than on prior studies. 2. New left occipital chronic or subacute infarct. 3. No acute intracranial hemorrhage. All CT scans are performed using dose optimization techniques as appropriate to the performed exam an d include at least one of the following: Automated exposure control, adjustment of the mA and/or kV according t o size, and the use of iterative reconstruction technique.
[2022-03-30] MEDS ORDERED: ASPIRIN CHEWABLE PO ONE (16:53)
--- NOTE | 2022-03-30 16:55 | PCM.PROG ---
Date Seen by Provider: 03/30/22 Time Seen by Provider: 16:53 Subjective: Dx. cva Objective: Vitals: T=97.6 F, P=60, R=20, GG=826/71, SPO2=96 HEENT: [] Neck: [] Lungs: [] CVS: [] Abdomen: [] Extremities: [] Neurological: []unsteady gait Skin: [] Lab/Tests/Diagnostic Imaging: [] head ct reveals subacute occipital infarct (1) Gastroenteritis: Status: Acute Code(s): K52.9 - Noninfective gastroenteritis and colitis, unspecified SNOMED Code(s): 71722385 (2) ERWIN (acute kidney injury): Status: Acute Code(s): N17.9 - Acute kidney failure, unspecified SNOMED Code(s): 95467431 Plan: start aspirin, initiate neurology transfer care to Dr Qureshi at 19:00
[2022-03-30] MEDS ORDERED: SODIUM CHLORIDE 1,000 ML IV SCH (19:17)
--- NOTE | 2022-03-30 19:30 | PCM.DC ---
Final Diagnosis: new onset cva, uti, dm type 2, ckd stage 3a, parox afib Physical Exam Appearance: Well-appearing and Well-nourished Ill-appearing: None Pain Distress: None Eyes: OMAYRA, EOMI and Conjunctiva clear ENT: Ears normal, Nose normal and Oropharynx normal Neck: Supple Respiratory: Airway patent, Breath sounds clear and Breath sounds equal Cardiovascular: Pulses normal, No rub and Irregular rhythm GI/: Soft, Nontender, No masses and Bowel sounds normal Musculoskeletal: Normal strength, ROM intact, No edema and No calf tenderness Skin: Warm, Dry and Normal color Neurological: Sensation intact, Motor intact and Alert Psychiatric: Affect appropriate and Mood appropriate (1) Gastroenteritis: Status: Acute Code(s): K52.9 - Noninfective gastroenteritis and colitis, unspecified SNOMED Code(s): 84125383 (2) ERWIN (acute kidney injury): Status: Acute Code(s): N17.9 - Acute kidney failure, unspecified SNOMED Code(s): 03683491 (3) CVA (cerebral vascular accident): Status: Acute Code(s): I63.9 - Cerebral infarction, unspecified SNOMED Code(s): 169752592 Reason for Hospitalization: persistent nausea, vomiting and nonbloody diarrhea Prognosis/Condition at Discharge: stable Medications at Discharge: see nursing note Lab/Diagnostics: see urine culture Discharge Disposition: Transfer Hospital Course: his nausea and vomiting have resolved---today while at therapy they detected the patient leaning to one side--dr mars ordered a ct of the head which apprently revealed a new finding on ct suggstive of cva---dr mars felt he needed to be transferred so discussions were entered with dr young and dr miller who graciously accepted the patient in transfer to [facility] in [place] Plan: the patient will be transferred to [facility]
[2022-03-30 20:11] VITALS: TEMP 98.1
[2022-03-30 21:11] VITALS: BP 165/77
[2022-03-30] MEDS: LIPITOR PO SCH (21:13)
[2022-03-30] MEDS: CATAPRES PO SCH (21:13)
[2022-03-30] MEDS: FLOMAX PO SCH (21:13)
[2022-03-30] MEDS: NEURONTIN PO SCH (21:13)
[2022-03-30 21:29] LABS: SARS COV-2 RNA RAPID NAAT NEGATIVE (NEGATIVE)
[2022-03-31] MEDS ORDERED: ASPIRIN EC PO SCH (08:30)
== END 2022-03-30 22:47 | disposition short-term general hospital (02) ==
LOC: ED 17:42 → MEDSURG A 17:42
PROVIDERS: ADMIT Family Medicine; ATTEND Surgery
DX: I48.0 Paroxysmal atrial fibrillation; G62.9 Polyneuropathy, unspecified; E11.9 Type 2 diabetes mellitus without complications; Z79.899 Other long term (current) drug therapy; N18.30 Chronic kidney disease, stage 3 unspecified; N39.0 Urinary tract infection, site not specified; I10 Essential (primary) hypertension; Z86.73 Personal history of transient ischemic attack (TIA), and cerebral infarction without residual deficits; I63.9 Cerebral infarction, unspecified; N17.9 Acute kidney failure, unspecified; J44.9 Chronic obstructive pulmonary disease, unspecified; Z79.01 Long term (current) use of anticoagulants; Z20.822 Contact with and (suspected) exposure to COVID-19; Z51.81 Encounter for therapeutic drug level monitoring; K52.9 Noninfective gastroenteritis and colitis, unspecified

== ENCOUNTER 2023-05-18 13:50 | Inpatient (IN) ==
--- NOTE | 2023-05-18 14:00 | PCM.SS ---
Provider Provider: BONI PATEL, [facility] Admission Date Admission Date: 05/17/23 Discharge Date Discharge Date: 05/18/23 Primary Care Physician Primary Care Physician: GABBY ORR Chief Complaint Reason For Visit: RESPIRATORY FAILURE History of Present Illness History of Present Illness: Admitted 05/18/23 13:50, this 82 year old /WHITE/M [] [facility] Medical History Unspecified symptoms and signs involving the nervous system R29.90 - Unspecified symptoms and signs involving the nervous system (ICD- 10) Unspecified dementia, unspecified severity, without behavioral disturbance, psychotic disturbance, mood disturbance, and anxiety F03.90 - Unspecified dementia, unspecified severity, without behavioral disturbance, psychotic disturbance, mood disturbance, and anxiety (ICD-10) Type 2 diabetes mellitus with diabetic neuropathy, unspecified E11.40 - Type 2 diabetes mellitus with diabetic neuropathy, unspecified (ICD-10) Stiffness of unspecified joint, not elsewhere classified M25.60 - Stiffness of unspecified joint, not elsewhere classified (ICD-10) Personal history of transient ischemic attack (TIA), and cerebral infarction without residual deficits Z86.73 - Personal history of transient ischemic attack (TIA), and cerebral infarction without residual deficits (ICD-10) Paroxysmal atrial fibrillation I48.0 - Paroxysmal atrial fibrillation (ICD-10) Other symptoms and signs involving cognitive functions following cerebral infarction I69.318 - Other symptoms and signs involving cognitive functions following cerebral infarction (ICD-10) 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 I69.328 - 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 (ICD-10) Other specified abnormalities of plasma proteins R77.8 - Other specified abnormalities of plasma proteins (ICD-10) Other recurrent depressive disorders F33.8 - Other recurrent depressive disorders (ICD-10) 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 - Other cerebral infarction due to occlusion or stenosis of small artery (ICD-10) terminal block assembler (current) use of anticoagulants Z79.01 - residential (current) use of anticoagulants (ICD-10) Essential (primary) hypertension I10 - Essential (primary) hypertension (ICD-10) Dorsalgia, unspecified M54.9 - Dorsalgia, unspecified (ICD-10) Cognitive communication deficit R41.841 - Cognitive communication deficit (ICD-10) Benign prostatic hyperplasia with lower urinary tract symptoms N40.1 - Benign prostatic hyperplasia with lower urinary tract symptoms (ICD- 10) Altered mental status, unspecified R41.82 - Altered mental status, unspecified (ICD-10) Type 2 diabetes mellitus without complications E11.9 - Type 2 diabetes mellitus without complications (ICD-10) Transient cerebral ischemic attack, unspecified G45.9 - Transient cerebral ischemic attack, unspecified (ICD-10) Repeated falls R29.6 - Repeated falls (ICD-10) Personal history of COVID-19 Z86.16 - Personal history of COVID-19 (ICD-10) Pain in left hip M25.552 - Pain in left hip (ICD-10) 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 - 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 (ICD-10) Other specified disorders of brain G93.89 - Other specified disorders of brain (ICD-10) Other reduced mobility Z74.09 - Other reduced mobility (ICD-10) Other obesity due to excess calories E66.09 - Other obesity due to excess calories (ICD-10) Muscle weakness (generalized) M62.81 - Muscle weakness (generalized) (ICD-10) Feeding difficulties, unspecified R63.30 - Feeding difficulties, unspecified (ICD-10) Dysphagia, oropharyngeal phase R13.12 - Dysphagia, oropharyngeal phase (ICD-10) Difficulty in walking, not elsewhere classified R26.2 - Difficulty in walking, not elsewhere classified (ICD-10) Chronic systolic (congestive) heart failure I50.22 - Chronic systolic (congestive) heart failure (ICD-10) Chronic kidney disease, stage 3b N18.32 - Chronic kidney disease, stage 3b (ICD-10) Aphasia following cerebral infarction I69.320 - Aphasia following cerebral infarction (ICD-10) Age-related cognitive decline R41.81 - Age-related cognitive decline (ICD-10) Family History Other Family history unknown Social History Smoking and tobacco status: Never smoker Substance use type: does not use Housing: assisted living facility History of recent travel: No Medications Mecications: Medications at Discharge (Home Meds & RX) apixaban 5 mg tablet (Eliquis) 2.5 mg PO BID 11/28/19 atorvastatin 80 mg tablet 40 mg PO BEDTIME 11/28/19 duloxetine 60 mg capsule,delayed release (Cymbalta) 20 mg PO DAILY 11/28/19 febuxostat 40 mg tablet (Uloric) 40 mg PO DAILY 11/28/19 finasteride 5 mg tablet (Proscar) 5 mg PO DAILY 11/28/19 gabapentin 300 mg capsule 300 mg PO DAILY 11/28/19 memantine 5 mg tablet (Namenda) 5 mg PO BID 11/28/19 pantoprazole 40 mg tablet,delayed release (Protonix) 40 mg PO DAILY 11/28/19 tamsulosin 0.4 mg capsule (Flomax) 0.8 mg PO BEDTIME 11/28/19 acetaminophen 325 mg capsule 650 mg PO Q4H PRN GENERAL DISCOMFORT 05/18/23 aspirin 81 mg tablet,delayed release (Adult Aspirin Regimen) 81 mg PO DAILY 05/18/23 bisacodyl 5 mg tablet,delayed release (Alophen (bisacodyl)) 10 mg PO DAILY PRN constipation 05/18/23 budesonide 160 mcg-glycopyr 9 mcg-formot 4.8 mcg/actuation HFA inhaler (Breztri Aerosphere) 2 inh inhalation QAM AND QPM 05/18/23 cholecalciferol (vitamin D3) 125 mcg (5,000 unit) capsule 125 mcg PO DAILY 05/18/23 fluticasone propionate 50 mcg/actuation nasal spray,suspension (Flonase Allergy Relief) 1 spray intranasal BID 05/18/23 losartan 25 mg tablet 25 mg PO DAILY 05/18/23 omeprazole 20 mg capsule,delayed release 20 mg PO DAILY 05/18/23 zinc sulfate 50 mg zinc (220 mg) capsule (Orazinc) 50 mg PO DAILY 05/18/23 Allergies Allergies Allergy/AdvReac Type Severity Reaction Status Date / Time No Known Allergies Allergy Verified 05/17/23 21:46 Vital Signs (Last 4 Hours) Vital Signs Last 4 Hours: Vital Signs: Last 4 Hours 05/18/23 13:00 Telemetry Heart Rate 114 H Review Review Statement: I have independently reviewed and interpreted the labs/EKGs/imaging that were ordered by the ER provider. I have reviewed all outside records that are available currently in our EMR including imaging/notes/labs from previous visits. Plan Additional Planning: Case discussed with ED Physician, []. DVT Prophylaxis: Advanced Care Planning: [] minutes spent discussing advance care planning. Smoking Cessation: 3-10 minutes spent discussing smoking cessation. Disposition: Admit to: Discussed Plan of Care with [] If patient discharged with Left Ventricular Systolic Dysfunction: Discharged with a beta anitra? [] If no, why not? [] Discharged with an frederick/arb? [] If no, why not? [] Review With Patient Reviewed with Patient and Family: Patient and family have been counseled on condition and care plan and have no immediate questions. I have personally discussed and reviewed the patient's visit/current labs/imaging/decision making with Dr. Ronen Griffiths, my supervising attending. Total number of minutes spent with patient [ ] min. More than 50% of the time spent with this patient was devoted to counseling and coordination of care. Time of Admission:05/18/23 13:50 Time of Discharge: Discharge Plan Discharge Prescriptions: No Action memantine [Namenda] 5 mg Tablet 5 mg PO BID febuxostat [Uloric] 40 mg Tablet 40 mg PO DAILY atorvastatin 80 mg Tablet 40 mg PO BEDTIME tamsulosin [Flomax] 0.4 mg Capsule 0.8 mg PO BEDTIME pantoprazole [Protonix] 40 mg Tablet,Delayed Release (Dr/Ec) 40 mg PO DAILY gabapentin 300 mg Capsule 300 mg PO DAILY finasteride [Proscar] 5 mg Tablet 5 mg PO DAILY duloxetine [Cymbalta] 60 mg Capsule,Delayed Release(Dr/Ec) 20 mg PO DAILY Eliquis 5 mg Tablet 2.5 mg PO BID acetaminophen 325 mg capsule 650 mg PO Q4H PRN (Reason: GENERAL DISCOMFORT) aspirin [Adult Aspirin Regimen] 81 mg tablet,delayed release (DR/EC) 81 mg PO DAILY bisacodyl [Alophen (bisacodyl)] 5 mg tablet,delayed release (DR/EC) 10 mg PO DAILY PRN (Reason: constipation) Breztri Aerosphere 160-9-4.8 mcg/actuation HFA aerosol inhaler 2 inh inhalation QAM AND QPM cholecalciferol (vitamin D3) 125 mcg (5,000 unit) capsule 125 mcg PO DAILY fluticasone propionate [Flonase Allergy Relief] 50 mcg/actuation spray,suspension 1 spray intranasal BID Rx Instructions: administer into each nostril losartan 25 mg tablet 25 mg PO DAILY omeprazole 20 mg capsule,delayed release(DR/EC) 20 mg PO DAILY zinc sulfate [Orazinc] 50 mg zinc (220 mg) capsule 50 mg PO DAILY
[2023-05-18 14:13] VITALS: BMI 31.7
[2023-05-18] MEDS ORDERED: ZOFRAN 4 MG/2 ML IVP PRN (15:17)
--- NOTE | 2023-05-18 15:42 | PCM ---
Date of Service Date Seen by Provider: 05/18/23 Time Seen by Provider: 14:20 Admit Day/Time Admission Date: 05/18/23 Admission Time: 14:17 Reason for Admission Chief Complaint: RESPIRATORY FAILURE Hospital Provider Hospital Provider: BONI PATEL, [facility] [place] Primary Care Physician: GABBY ORR History of Present Illness History of Present Illness: 82 year old /WHITE/M presented to the ER from local nursing facility for chief complaint of altered mental status. retirement staff reported patient had noted swelling of BLE that was new and he wasn't acting like himself. O2 sat was dropping down into the upper 80s and low 90s at times. Placed on 2L. Patient was found to have CHF exacerbation and admitted for observation initially. Due to worsening mental status and conditions, family agreed that hospice is the preferred plan of care. Due to AMS, patient unable to provide HPI [facility] Medical History Unspecified symptoms and signs involving the nervous system R29.90 - Unspecified symptoms and signs involving the nervous system (ICD- 10) Unspecified dementia, unspecified severity, without behavioral disturbance, psychotic disturbance, mood disturbance, and anxiety F03.90 - Unspecified dementia, unspecified severity, without behavioral disturbance, psychotic disturbance, mood disturbance, and anxiety (ICD-10) Type 2 diabetes mellitus with diabetic neuropathy, unspecified E11.40 - Type 2 diabetes mellitus with diabetic neuropathy, unspecified (ICD-10) Stiffness of unspecified joint, not elsewhere classified M25.60 - Stiffness of unspecified joint, not elsewhere classified (ICD-10) Personal history of transient ischemic attack (TIA), and cerebral infarction without residual deficits Z86.73 - Personal history of transient ischemic attack (TIA), and cerebral infarction without residual deficits (ICD-10) Paroxysmal atrial fibrillation I48.0 - Paroxysmal atrial fibrillation (ICD-10) Other symptoms and signs involving cognitive functions following cerebral infarction I69.318 - Other symptoms and signs involving cognitive functions following cerebral infarction (ICD-10) 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 I69.328 - 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 (ICD-10) Other specified abnormalities of plasma proteins R77.8 - Other specified abnormalities of plasma proteins (ICD-10) Other recurrent depressive disorders F33.8 - Other recurrent depressive disorders (ICD-10) 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 - Other cerebral infarction due to occlusion or stenosis of small artery (ICD-10) senior care (current) use of anticoagulants Z79.01 - manager intermediate (current) use of anticoagulants (ICD-10) Essential (primary) hypertension I10 - Essential (primary) hypertension (ICD-10) Dorsalgia, unspecified M54.9 - Dorsalgia, unspecified (ICD-10) Cognitive communication deficit R41.841 - Cognitive communication deficit (ICD-10) Benign prostatic hyperplasia with lower urinary tract symptoms N40.1 - Benign prostatic hyperplasia with lower urinary tract symptoms (ICD- 10) Altered mental status, unspecified R41.82 - Altered mental status, unspecified (ICD-10) Type 2 diabetes mellitus without complications E11.9 - Type 2 diabetes mellitus without complications (ICD-10) Transient cerebral ischemic attack, unspecified G45.9 - Transient cerebral ischemic attack, unspecified (ICD-10) Repeated falls R29.6 - Repeated falls (ICD-10) Personal history of COVID-19 Z86.16 - Personal history of COVID-19 (ICD-10) Pain in left hip M25.552 - Pain in left hip (ICD-10) 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 - 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 (ICD-10) Other specified disorders of brain G93.89 - Other specified disorders of brain (ICD-10) Other reduced mobility Z74.09 - Other reduced mobility (ICD-10) Other obesity due to excess calories E66.09 - Other obesity due to excess calories (ICD-10) Muscle weakness (generalized) M62.81 - Muscle weakness (generalized) (ICD-10) Feeding difficulties, unspecified R63.30 - Feeding difficulties, unspecified (ICD-10) Dysphagia, oropharyngeal phase R13.12 - Dysphagia, oropharyngeal phase (ICD-10) Difficulty in walking, not elsewhere classified R26.2 - Difficulty in walking, not elsewhere classified (ICD-10) Chronic systolic (congestive) heart failure I50.22 - Chronic systolic (congestive) heart failure (ICD-10) Chronic kidney disease, stage 3b N18.32 - Chronic kidney disease, stage 3b (ICD-10) Aphasia following cerebral infarction I69.320 - Aphasia following cerebral infarction (ICD-10) Age-related cognitive decline R41.81 - Age-related cognitive decline (ICD-10) Family History Other Family history unknown Social History Smoking and tobacco status: Never smoker Substance use type: does not use Housing: assisted living facility History of recent travel: No Allergies Allergies Allergy/AdvReac Type Severity Reaction Status Date / Time No Known Allergies Allergy Verified 05/17/23 21:46 Current Medications Home Medications acetaminophen 325 mg capsule 650 mg PO Q4H PRN GENERAL DISCOMFORT 05/18/23 [History Confirmed 05/18/23 Last Taken Unknown] Home Fentanyl Citrate (Fentanyl 50 Mcg/Ml Sdv) 50 mcg IVP Q2HR MANDIE Lorazepam (Lorazepam Inj 2 Mg/Ml Vial) 2 mg IVP Q2HR MANDIE Ondansetron HCl (Ondansetron Hcl/Pf 4 Mg/2 Ml Sdv) 4 mg IVP Q6H PRN PRN Reason: Nausea / Vomiting Scopolamine HBr (Scopolamine Hydrobromide 1.5 Mg Patch.Td72) 1 patch TD Q72H PRN PRN Reason: secretions Discontinued Medications Lorazepam (Lorazepam Inj 2 Mg/Ml Vial) 1 mg IVP Q2HR MANDIE Opioid Naive vs. Tolerant Does Patient Take Opioids?: No Is Patient Opioid Naive?: Yes What is Opioid Naive?: *Opioid Naive implies the patient is not already taking opioids or not chronically receiving opioids on a daily basis. *PRN dosing is not "usually" associated with tolerance. *Patients are at higher risk of over-sedation and aspiration. Is Patient Opioid Tolerant?: No What is Opioid Tolerant?: *Opioid Tolerance implies less than the expected response to an opioid. *Acquired tolerance is defined by the patient taking 60mg of oral morphine daily (or equianalgesic dose of another opioid) for 1 week or more. *Often associated with chronic pain. *May take more than usual dose to achieve desired pain control. Physical examination Most Recent Vital Signs: Most Recent Vital Signs Temperature 98.4 F 05/18/23 14:05 Temperature Source Oral 05/18/23 14:05 Pulse Rate 115 H 05/18/23 14:05 Respiratory Rate 20 05/18/23 14:05 Blood Pressure Left Arm 165/109 05/18/23 14:05 Blood Pressure Position Supine 05/18/23 14:05 O2 Sat by Pulse Oximetry 97 05/18/23 14:05 Oxygen Delivery Method Nasal Cannula 05/18/23 14:05 Oxygen Flow Rate 3 05/18/23 14:05 Height 6 ft 3 in 05/18/23 14:05 Weight 254 lb 05/18/23 14:05 Telemetry Heart Rate 114 H 05/18/23 13:00 Telemetry SPO2 90 L 05/18/23 07:00 Appearance: Positive Ill-Appearing Skin: Positive Warm HEENT: Positive Normocephalic Neck: Positive Supple and Midline Trachea Chest/Lungs: Positive Symmetrical With Equal Breath Sounds and Other (crackles throughout lung zaldivar) Heart: Positive RRR and Pulses Normal GI/: Positive Soft, Nontender, Bowel Sounds Normal and No Distention Musculoskeletal: Positive Not Examined Extremities: Positive Intact Peripheral Pulses and Stable Joints Without Laxity Neurological: Positive Other (lethargic, unresponsive) Review Statement Review Statement: I have independently reviewed and interpreted the labs/EKGs/imaging that were ordered by the ER provider. I have reviewed all outside records that are available currently in our EMR including imaging/notes/labs from previous visits. Plan Plan: 1. Acute Hypoxic Respiratory Failure in setting of CHF 2. UTI 3. Acute Metabolic Encephalopathy 4. Hypertensive Urgency 5. Acute on Chronic Renal Failure 6. Hypernatremia Initially treated patient for CHF exacerbation when WELLNESS SPECIALIST with lasix Q8H IVP, ordered echo, I&O, daily weight, and 1800 mL fluid restriction. Patient continued to be lethargic and unresponsive throughout the night. BP ex tremely elevated. CT head completed that was negative for acute process. O2 sat continuing to drop down into 70s-80s. Discussed plan of care extensively with Victoriano, son, MILTON. Discussed prognosis and agreed that patient needs comfort care only. [facility] evaluated and accepted patient for inpatient hospice. DVT Prophylaxis: none, comfort measures only Time Spent: Greater than 80 minutes spent with patient, 50% of the time spent with this patient was devoted to counseling and coordination of care. Advanced Care Plannin minutes spent discussing advance care planning. Disposition: Admit to: [facility], Inpatient Discussed Plan of Care with Dr. Abhay Griffiths. Medications Medication Orders: Medications Ordered Category Date Time Status Fentanyl Citrate/Pf [Sublimaze] Meds 05/18/23 16:00 Active 50 mcg IVP Q2HR Lorazepam [Ativan] Meds 05/18/23 16:00 Active 2 mg IVP Q2HR Ondansetron HCl/Pf [Zofran 4 mg/2 ml] Meds 05/18/23 15:17 Active 4 mg IVP Q6H PRN Scopolamine Hydrobromide [Transderm-Scop 1.5 mg Patch] Meds 05/21/23 09:00 Active 1 patch TD Q72H PRN
[2023-05-18] MEDS: ATIVAN IVP SCH ×3 (15:59→18:17)
[2023-05-18] MEDS: SUBLIMAZE IVP SCH ×2 (16:10→18:16)
--- NOTE | 2023-05-19 09:49 | PCM.PROG ---
Date/Time Seen Date Seen by Provider: 05/19/23 Time Seen by Provider: 09:10 Provider Provider: BONI PATEL, [facility] Chief Complaint Chief Complaint: RESPIRATORY FAILURE Subjective Subjective: Resting comfortably with family at bedside. Objective Appearance: Positive Ill-Appearing Chest/Lungs: Positive Symmetrical With Equal Breath Sounds and Other (crackles bilaterally) Heart: Positive Pulses Normal and Tachycardia GI/: Positive Soft, Nontender, Bowel Sounds Normal and No Distention Musculoskeletal: Positive Not Examined Neurological: Positive Other (unresponsive to stimuli) Vital Signs Vital Signs: Vital Signs: Last 24 Hours 05/18/23 13:00 05/18/23 14:05 05/18/23 14:05 Temperature 98.4 F Temperature Source Oral Pulse Rate 115 H Pulse Rate [Apical] Respiratory Rate 20 Blood Pressure Blood Pressure Mean Blood Pressure Left Arm 165/109 Blood Pressure Location Blood Pressure Position Supine O2 Sat by Pulse Oximetry 97 Oxygen Delivery Method Nasal Cannula Nasal Cannula Oxygen Flow Rate 3 3 Height 6 ft 3 in Weight 254 lb Telemetry Heart Rate 114 H 05/18/23 20:00 05/18/23 21:16 05/19/23 03:10 Temperature 98.0 F 96.9 F L Temperature Source Temporal Artery Scan Temporal Artery Scan Pulse Rate 119 H 118 H Pulse Rate [Apical] Respiratory Rate 14 18 20 Blood Pressure 143/90 H 144/87 H Blood Pressure Mean 107 106 Blood Pressure Left Arm Blood Pressure Location Left Radial Artery Right Arm Blood Pressure Position Supine Supine O2 Sat by Pulse Oximetry 94 L 94 L Oxygen Delivery Method Nasal Cannula Nasal Cannula Nasal Cannula Oxygen Flow Rate 3 3 3 Height Weight Telemetry Heart Rate 05/19/23 08:00 Temperature Temperature Source Pulse Rate Pulse Rate [Apical] 122 H Respiratory Rate 20 Blood Pressure Blood Pressure Mean Blood Pressure Left Arm Blood Pressure Location Blood Pressure Position O2 Sat by Pulse Oximetry Oxygen Delivery Method Nasal Cannula Oxygen Flow Rate 3 Height Weight Telemetry Heart Rate Additional Comments Additional Comments: I have independently reviewed and interpreted the labs/EKGs/imaging ordered during this hospital stay. I have reviewed outside records that are available in our EMR that pertain to medical stay including imaging/notes/labs from previous visits. Active Medications Active Medications: Medications Generic Name Dose Route Start Last Admin Trade Name Freq PRN Reason Stop Dose Admin Fentanyl Citrate 50 mcg 05/18/23 18:00 05/19/23 07:42 Fentanyl 50 Mcg/Ml Sdv IVP 50 mcg Q2HR MANDIE Administration Lorazepam 2 mg 05/18/23 18:00 05/19/23 07:42 Lorazepam Inj 2 Mg/Ml Vial IVP 2 mg Q2HR MANDIE Administration Ondansetron HCl 4 mg 05/18/23 15:17 Ondansetron Hcl/Pf 4 Mg/2 Ml Sdv IVP Q6H PRN Nausea / Vomiting Scopolamine HBr 1 patch 05/21/23 09:00 Scopolamine Hydrobromide 1.5 Mg Patch.Td72 TD Q72H PRN secretions Plan Plan: 1. Acute Hypoxic Respiratory Failure in setting of CHF 2. UTI 3. Acute Metabolic Encephalopathy 4. Hypertensive Urgency 5. Acute on Chronic Renal Failure 6. Hypernatremia Hospice: ativan 2 mg Q2H, fentanyl 50 mcg Q2H, scopolamine Q72H. will adjust as needed DVT Prophylaxis: none, comfort measures only Review Statement Review Statement: I have personally discussed and reviewed the patient's visit/currently labs/imaging/decision making with Dr. Griffiths, my supervising attending. Greater that 50 minutes spent with patient, 50% of the time spent with this patient was devoted to counseling and coordination of care.
[2023-05-19] MEDS: SUBLIMAZE IVP ONE (11:52)
[2023-05-19] MEDS: SUBLIMAZE ONE (11:54)
[2023-05-19] MEDS: SUBLIMAZE IVP SCH (13:50)
[2023-05-20] MEDS ORDERED: SUBLIMAZE IVP SCH (14:00)
[2023-05-20] MEDS: MORPHINE 4 MG/ML SYRINGE IVP SCH (14:17)
[2023-05-20] MEDS: ATIVAN IVP SCH (14:18)
[2023-05-20] MEDS ORDERED: MORPHINE 4 MG/ML SYRINGE IVP SCH (18:34)
[2023-05-20] MEDS ORDERED: ATIVAN INTENSOL PO SCH (19:00)
[2023-05-20 20:30] VITALS: BP 89/50; RESP 12; TEMP 97.2
[2023-05-20] MEDS: ROXANOL 20 MG/ML PO SCH (20:35)
[2023-05-20 21:07] VITALS: PULSE 104
--- NOTE | 2023-05-20 22:08 | PCM.PROG ---
Date/Time Seen Date Seen by Provider: 05/20/23 Time Seen by Provider: 09:00 Provider Provider: BONI PATEL, [facility] Chief Complaint Chief Complaint: RESPIRATORY FAILURE Subjective Subjective: O2 sat dropping to upper 80s at times, tachycardic Still unresponsive. Family at bedside. Objective Appearance: Positive Ill-Appearing Chest/Lungs: Positive Symmetrical With Equal Breath Sounds, Rhonci and Other (crackles throughout lung zaldivar) Heart: Positive Pulses Normal and Tachycardia GI/: Positive Soft, Nontender and Bowel Sounds Normal Musculoskeletal: Positive Not Examined Neurological: Positive Other (unresponsive to all stimuli) Vital Signs Vital Signs: Vital Signs: Last 24 Hours 05/20/23 05:58 05/20/23 06:20 05/20/23 08:00 Temperature 96.6 F L Temperature Source Temporal Artery Scan Pulse Rate 112 H Pulse Rate [Apical] 107 H Respiratory Rate 19 22 H Blood Pressure 97/59 L Blood Pressure Mean 71 Blood Pressure Location Right Arm Blood Pressure Position Supine O2 Sat by Pulse Oximetry 91 L Oxygen Delivery Method Nasal Cannula Nasal Cannula Nasal Cannula Oxygen Flow Rate 3 3 3 05/20/23 10:25 05/20/23 14:00 05/20/23 14:49 Temperature 101.3 F H Temperature Source Temporal Artery Scan Pulse Rate 106 H Pulse Rate [Apical] Respiratory Rate 16 Blood Pressure 96/59 L Blood Pressure Mean 71 Blood Pressure Location Right Arm Blood Pressure Position O2 Sat by Pulse Oximetry 91 L Oxygen Delivery Method Nasal Cannula Nasal Cannula Nasal Cannula Oxygen Flow Rate 3 3 3 05/20/23 19:36 05/20/23 20:00 05/20/23 20:28 Temperature 97.2 F L Temperature Source Temporal Artery Scan Pulse Rate 103 H Pulse Rate [Apical] 104 H Respiratory Rate 12 12 Blood Pressure 89/50 L Blood Pressure Mean 63 Blood Pressure Location Right Arm Blood Pressure Position Supine O2 Sat by Pulse Oximetry 89 L Oxygen Delivery Method Nasal Cannula Nasal Cannula Nasal Cannula Oxygen Flow Rate 3 3 3 Additional Comments Additional Comments: I have independently reviewed and interpreted the labs/EKGs/imaging ordered during this hospital stay. I have reviewed outside records that are available in our EMR that pertain to medical stay including imaging/notes/labs from previous visits. Active Medications Active Medications: Medications Generic Name Dose Route Start Last Admin Trade Name Freq PRN Reason Stop Dose Admin Lorazepam 2 mg 05/20/23 14:00 05/20/23 21:43 Lorazepam Inj 2 Mg/Ml Vial IVP 2 mg Q1HR MANDIE Administration Lorazepam 2 mg 05/20/23 19:00 Lorazepam Oral Concentrate 2 Mg/1 Ml 30 Ml Bottle PO Q1-2H MANDIE Morphine Sulfate 6 mg 05/20/23 18:34 Morphine Sulfate 4 Mg/Ml Syringe IVP Q1HR MANDIE Morphine Sulfate 0.75 ml 05/20/23 19:00 05/20/23 21:42 Morphine Sulfate 20 Mg/1 Ml 15 Ml Bottle PO 0.75 ml Q1HR MANDIE Administration Ondansetron HCl 4 mg 05/18/23 15:17 Ondansetron Hcl/Pf 4 Mg/2 Ml Sdv IVP Q6H PRN Nausea / Vomiting Scopolamine HBr 1 patch 05/21/23 09:00 Scopolamine Hydrobromide 1.5 Mg Patch.Td72 TD Q72H PRN secretions Plan Plan: 1. Acute Hypoxic Respiratory Failure in setting of CHF 2. UTI 3. Acute Metabolic Encephalopathy 4. Hypertensive Urgency 5. Acute on Chronic Renal Failure 6. Hypernatremia Hospice: increased fentanyl to 100 mcg from 50 and increased frequency to Q1H and ativan 2mg Q1H IV. Continue scopolamine Q72H DVT Prophylaxis: none, comfort measures only Review Statement Review Statement: I have personally discussed and reviewed the patient's visit/currently labs/imaging/decision making with Dr. Griffiths, my supervising attending. Greater that 50 minutes spent with patient, 50% of the time spent with this patient was devoted to counseling and coordination of care.
--- NOTE | 2023-05-21 07:28 | DCSUM ---
Admission Diagnosis Admission Diagnosis: 1. Acute Hypoxic Respiratory Failure in setting of CHF 2. UTI 3. Acute Metabolic Encephalopathy 4. Hypertensive Urgency 5. Acute on Chronic Renal Failure 6. Hypernatremia Discharge Diagnosis Discharge Diagnosis: 1. Acute Hypoxic Respiratory Failure in setting of CHF 2. UTI 3. Acute Metabolic Encephalopathy 4. Hypertensive Urgency 5. Acute on Chronic Renal Failure 6. Hypernatremia Hospital Provider Hospital Provider: BONI PATEL, [facility] [place] [facility] [place] Primary Care Physician: GABBY ORR Summary of History and Physical Summary of History and Physical: 82 year old /WHITE/M presented to the ER from local nursing facility for chief complaint of altered mental status. [facility] staff reported patient had noted swelling of BLE that was new and he wasn't acting like himself. O2 sat was dropping down into the upper 80s and low 90s at times. Placed on 2L. Patient was found to have CHF exacerbation and admitted for observation initially. Due to worsening mental status and conditions, family agreed that hospice is the preferred plan of care. Due to AMS, patient unable to provide HPI Hospital Course Subjective: Initially treated patient for CHF exacerbation when CHOCOLATE FINISHER OPERATOR with lasix Q8H IVP, ordered echo, I&O, daily weight, and 1800 mL fluid restriction. Patient continued to be lethargic and unresponsive throughout the night. BP extremely elevated. CT head completed that was negative for acute process. O2 sat continuing to drop down into 70s-80s. Discussed plan of care extensively with Victoriano, son, MILTON. Discussed prognosis and agreed that patient needs comfort care only. [facility] evaluated and accepted patient for inpatient hospice. After admitted to hospice, patient had been receiving fentanyl 50 mcg, ativan 2 mg every 2 hours IVP, scopolomine Q72H. The next day patient was showing signs of discomfort and dosage of fentanyl was increased to 100 mcg. Yesterday, patient was starting to show signs of discomfort again. Orders were changed to Q1H. IV site was difficult to push and fentanyl was changed to roxanol 0.[address] Leary, ER provider, pronounced patient this am. Time of was 0140 on 05/21/2023. Vital Signs: Most Recent Vital Signs Temperature 97.2 F L 05/20/23 20:28 Temperature Source Temporal Artery Scan 05/20/23 20:28 Pulse Rate 103 H 05/20/23 20:28 Respiratory Rate 12 05/20/23 20:28 Blood Pressure 89/50 L 05/20/23 20:28 Blood Pressure Mean 63 05/20/23 20:28 Blood Pressure Left Arm 165/109 05/18/23 14:05 Blood Pressure Location Right Arm 05/20/23 20:28 Blood Pressure Position Supine 05/20/23 20:28 O2 Sat by Pulse Oximetry 89 L 05/20/23 20:28 Oxygen Delivery Method Nasal Cannula 05/20/23 20:28 Oxygen Flow Rate 3 05/20/23 20:28 Height 6 ft 3 in 05/18/23 14:05 Weight 254 lb 05/18/23 14:05 Telemetry Heart Rate 114 H 05/18/23 13:00 Telemetry SPO2 90 L 05/18/23 07:00 Discharge Instructions Discharge Planning: Discharge Planning > 40 minutes If patient is discharged with left ventricular systolic dysfunction: NA Discharged with a beta anitra? [] If no, why not? [] Discharged with an frederick/arb? [] If no, why not? [] Cause of : cardiopulmonary arrest Time of : 13905/21/2023 Discharge Medications: Medications at Discharge (Home Meds & RX) acetaminophen 325 mg capsule 650 mg PO Q4H PRN GENERAL DISCOMFORT 05/18/23 Discharge Plan Discharge Discharge Orders: Discharge Patient (ONCE); Ordered 05/21/23 Ordered By: PERLA TEJADA Patient Disposition: Did you review [place] SEAPORT PLANNING MANAGER for ALL controlled substances?: No Discussed opioids are addictive and Narcan is available by prescription or from pharmacy.: No Condition: Date/Time: 05/21/23 01:40
[2023-05-21] MEDS ORDERED: TRANSDERM-SCOP 1.5 MG PATCH TD PRN (09:00)
== END 2023-05-21 03:28 | disposition expired | DRG 189 ==
LOC: MEDSURG B 13:50
PROVIDERS: ADMIT Hospitalist; ATTEND Nurse Practitioner Family